=== PATIENT | male | born 1945 | race Caucasian/White ===

== ENCOUNTER 2016-10-01 10:11 | Outpatient (CLI) | payer MEDICARE | END 2016-10-01 10:12 | disposition home or self-care (01) | DX: E78.5 Hyperlipidemia, unspecified (principal); Z79.01 Long term (current) use of anticoagulants; I25.10 Atherosclerotic heart disease of native coronary artery without angina pectoris; I10 Essential (primary) hypertension ==

== ENCOUNTER 2017-06-10 08:52 | Day surgery (SDC) | payer MEDICARE ==
[2017-06-10] MEDS ORDERED: LACTATED RINGERS 1,000 ML IV ONE (09:30)
[2017-06-10] MEDS ORDERED: MORPHINE 10 MG/ML VIAL IVP ONE (10:22)
[2017-06-10] MEDS ORDERED: fentaNYL 100 MCG/2 ML VIAL IVP ONE (10:22)
[2017-06-10 11:29] VITALS: BP 104/60
== END 2017-06-10 08:53 | disposition home or self-care (01) ==
LOC: SDS 08:52
PROVIDERS: ATTEND Surgery
PROC: 0DBP8ZX Excision of Rectum, Via Natural or Artificial Opening Endoscopic, Diagnostic (ICD-10-PCS; principal; 2017-06-10 10:15)
DX: Z12.11 Encounter for screening for malignant neoplasm of colon (principal); K62.1 Rectal polyp; K57.30 Diverticulosis of large intestine without perforation or abscess without bleeding; I10 Essential (primary) hypertension; E78.5 Hyperlipidemia, unspecified; Z79.82 Long term (current) use of aspirin
CPT/HCPCS: 45380; J7120

== ENCOUNTER 2018-02-25 08:00 | Outpatient (CLI) | payer MEDICARE ==
[2018-02-25 19:04] LABS: BASOPHILS # (AUTO) 0.1 10^3/uL (0.0-0.1); BASOPHILS % (AUTO) 0.8 %; EOSINOPHILS # (AUTO) 0.3 10^3/uL (0.0-0.7); EOSINOPHILS % (AUTO) 5.3 %; HGB - HEMOGLOBIN 14.2 g/dL (14.0-18.0); LYMPHOCYTES % (AUTO) 15.4 %; MEAN CORPUSCULAR HEMOGLOBIN 32.3 pg (27.0-31.0); MEAN CORPUSCULAR HGB CONC 33.9 g/dL (32.0-36.0); MEAN CORPUSCULAR VOLUME 95.5 fL (80.0-94.0); MEAN PLATELET VOLUME 8.1 fL (7.4-11.4); MONOCYTES # (AUTO) 0.6 10^3/uL (0.0-1.0); NEUTROPHILS # (AUTO) 4.3 10^3/uL (1.5-6.6); NEUTROPHILS % (AUTO) 68.5 %; PLT - PLATELET COUNT 171 10^3/uL (130-450); RED BLOOD COUNT 4.39 10^6/uL (4.70-6.10); RED CELL DISTRIBUTION WIDTH 13.4 % (12.0-15.0); WHITE BLOOD COUNT 6.2 x10^3/uL (4.8-10.8)
[2018-02-25 19:07] LABS: BILIRUBIN,URINE NEGATIVE (NEGATIVE); GLUCOSE, URINE (UA) NEGATIVE (NEGATIVE); KETONES,URINE (UA) NEGATIVE (NEGATIVE); LEUKOCYTE ESTERASE, URINE NEGATIVE (NEGATIVE); NITRITE,URINE NEGATIVE (NEGATIVE); OCCULT BLOOD,URINE NEGATIVE (NEGATIVE); PH,URINE 6.5 PH (5.0-7.5); PROTEIN,URINE TRACE mg/dL (NEGATIVE); UROBILINOGEN,URINE 0.2 (NORMAL) E.U./dL (NORMAL)
[2018-02-25 19:20] LABS: ALBUMIN/GLOBULIN RATIO 1.3 (1.0-2.2); ALKALINE PHOSPHATASE 45 IU/L (42-121); ALT ALANINE AMINOTRANSFERASE 22 IU/L (10-60); AST ASPARTATE AMINOTRANSFERASE 27 IU/L (10-42); BILIRUBIN,TOTAL 1.1 mg/dL (0.2-1.0); BUN - BLOOD UREA NITROGEN 21 mg/dL (6-20); CALCIUM 9.4 mg/dL (8.5-10.3); CARBON DIOXIDE - CO2 29 mmol/L (21-32); CHLORIDE 101 mmol/L (101-111); CHOL/HDL RATIO 2.6 (<5.0); CHOLESTEROL 134 mg/dL; CREATININE 1.4 mg/dL (0.6-1.2); GFR - MDRD 50 (>89); GLUCOSE 103 mg/dL (70-100); HDL CHOLESTEROL 52 mg/dL; LDL CHOLESTEROL,CALCULATED 67 mg/dL; LDL/HDL RATIO 1.3 (<3.6); SODIUM 137 mmol/L (135-145); TOTAL PROTEIN 7.1 g/dL (6.7-8.2); VLDL CHOLESTEROL 15 mg/dL
[2018-02-25 19:34] LABS: BACTERIA,URINE None Seen /HPF (None Seen); MUCUS,URINE Moderate Strands; RBC,URINE None Seen /HPF (0-5); SQUAMOUS EPITHELIAL CELL,UR RARE Squamous (<= Few)
[2018-02-25 19:44] LABS: CLARITY,URINE CLEAR (CLEAR)
== END 2018-02-25 08:01 | disposition home or self-care (01) ==
LOC: LAB.WCP 08:00
PROVIDERS: ATTEND Family Medicine
DX: Z00.00 Encounter for general adult medical examination without abnormal findings (principal); N18.9 Chronic kidney disease, unspecified; I25.10 Atherosclerotic heart disease of native coronary artery without angina pectoris; I12.9 Hypertensive chronic kidney disease with stage 1 through stage 4 chronic kidney disease, or unspecified chronic kidney disease; E78.5 Hyperlipidemia, unspecified; C61 Malignant neoplasm of prostate
CPT/HCPCS: 36415; 80053; 80061; 81001; 83721; 84153; 85025

== ENCOUNTER 2018-03-13 07:56 | Outpatient (CLI) | payer MEDICARE ==
--- NOTE | 2018-03-13 13:02 | Ultrasound Report ---
Procedure Date: 03/13/2018 Accession Number: [id number] / [id number] Procedure: US - Aorta Screening CPT Code: FULL RESULT: EXAM: AORTIC DOPPLER ULTRASOUND EXAM DATE: 03/13/2018 09:20 AM. CLINICAL HISTORY: Screening. COMPARISON: None. TECHNIQUE: Real-time sonographic imaging of retroperitoneal vascular structures, including color-flow, Doppler flow and spectral analysis was performed by the philosophy specialist. Multiple termite control service representative static images were saved for review. FINDINGS: Examination limited by bowel gas inhibiting sonographic window. Aorta: The abdominal aorta was adequately visualized. No evidence for abdominal aortic aneurysm. Aorta: Proximal: Sagittal AP: 2.5 cm. Distal: Transverse: 1.4 x 1.5 cm. Caliber WNL: Yes. Plaque visualized: Yes. Iliacs: Right Iliac: Transverse: 1.2 x 1.1 cm. Left Iliac: Transverse: 1.1 x 1.2 cm. Iliac Vessels: The visualized proximal common iliac arteries are normal in caliber. Other: None. IMPRESSION: Normal. No abdominal aortic aneurysm. RADIA
== END 2018-03-13 07:57 | disposition home or self-care (01) ==
LOC: DI 07:56
PROVIDERS: ATTEND Family Medicine
DX: Z13.6 Encounter for screening for cardiovascular disorders (principal)
CPT/HCPCS: 76706

== ENCOUNTER 2018-04-14 15:01 | Outpatient (CLI) | payer MEDICARE ==
--- NOTE | 2018-04-15 14:01 | Ultrasound Report ---
Reason: CAROTID BRUIT Procedure Date: 04/14/2018 Accession Number: [id number] / [id number] Procedure: US - Carotid Doppler Complete CPT Code: FULL RESULT: EXAM: BILATERAL CAROTID AND VERTEBRAL ARTERY DUPLEX DOPPLER ULTRASOUND: EXAM DATE: 04/14/2018 04:30 PM CLINICAL HISTORY: Carotid bruit. COMPARISON: None. TECHNIQUE: Grayscale imaging, color Doppler, and duplex spectral Doppler were used to evaluate the carotid and vertebral arteries bilaterally. Static images were obtained. FINDINGS: Subjectively, there is less than 50% echogenic atherosclerotic plaque in the bilateral carotid bulb regions. No hemodynamically significant plaque is identified in the right or left common or internal carotid arteries. Normal antegrade flow is present in bilateral vertebral arteries. VELOCITIES (cm/sec): Right CCA mid: PSV 116 cm/sec CCA dist: PSV 103 cm/sec ICA prox: PSV 77 cm/sec, EDV 27 cm/sec ICA mid: PSV 96 cm/sec, EDV 33 cm/sec ICA dist: PSV 70 cm/sec, EDV 28 cm/sec ECA: PSV 217 cm/sec Vert: PSV 21 cm/sec ICA/CCA: 0.93 Left CCA mid: PSV 78 cm/sec CCA dist: PSV 90 cm/sec ICA prox: PSV 121 cm/sec, EDV 29 cm/sec ICA mid: PSV 97 cm/sec, EDV 28 cm/sec ICA dist: PSV 86 cm/sec, EDV 30 cm/sec ECA: PSV 109 cm/sec Vert: PSV 44 cm/sec ICA/CCA: 1.34 ICA diameter stenosis: Right: <50% by velocity and <70% by NASCET criteria. Left: <50% by velocity and <70% by NASCET criteria. IMPRESSION: 1. No hemodynamically significant bilateral carotid artery plaquing. 2. In the right common and internal carotid artery there are no elevated carotid artery velocities to suggest hemodynamically significant stenosis. 3. In the left common and internal carotid artery there are no elevated carotid artery velocities to suggest hemodynamically significant stenosis. 4. Normal antegrade flow is present in bilateral vertebral arteries. General Recommendations: Stenosis =50% ICA - Follow-up ultrasound 6-12 months Stenosis <50% ICA - High Risk Patient with plaque - Follow-up ultrasound 1-2 years Normal Study but High Risk Patient - Follow-up ultrasound 3-5 years Management recommendations and diagnostic criteria are based on current IAC endorsed standards in Carotid Artery Stenosis: Grayscale and Doppler Ultrasound Diagnosis. Validated velocity measurements with angiographic measurements and velocity criteria are extrapolated from diameter data as defined by the Society of Radiologists in Ultrasound Consensus Conference Radiology 2003; 229;340-346. RADIA
== END 2018-04-14 15:02 | disposition home or self-care (01) ==
LOC: DI 15:01
PROVIDERS: ATTEND Family Medicine
DX: R09.89 Other specified symptoms and signs involving the circulatory and respiratory systems (principal)
CPT/HCPCS: 93880

== ENCOUNTER 2018-10-01 09:20 | Outpatient (CLI) | payer MEDICARE ==
[2018-10-01 13:47] LABS: HGB - HEMOGLOBIN 14.7 g/dL (14.0-18.0); MEAN CORPUSCULAR HEMOGLOBIN 31.5 pg (27.0-31.0); MEAN CORPUSCULAR HGB CONC 34.3 g/dL (32.0-36.0); MEAN CORPUSCULAR VOLUME 91.9 fL (80.0-94.0); MEAN PLATELET VOLUME 7.8 fL (7.4-11.4); RED BLOOD COUNT 4.67 10^6/uL (4.70-6.10); RED CELL DISTRIBUTION WIDTH 13.8 % (12.0-15.0); WHITE BLOOD COUNT 6.4 x10^3/uL (4.8-10.8)
[2018-10-01 13:56] LABS: CALCIUM 9.6 mg/dL (8.5-10.3); CREATININE 1.4 mg/dL (0.6-1.2)
== END 2018-10-01 09:21 | disposition home or self-care (01) ==
LOC: LAB.WCP 09:20
PROVIDERS: ATTEND Family Medicine
DX: N18.9 Chronic kidney disease, unspecified (principal); C61 Malignant neoplasm of prostate
CPT/HCPCS: 36415; 80048; 84153; 85027

== ENCOUNTER 2019-09-06 09:34 | Outpatient (CLI) | payer MEDICARE ==
[2019-09-06 11:59] LABS: BASOPHILS # (AUTO) 0.1 10^3/uL (0.0-0.1); BASOPHILS % (AUTO) 0.9 %; EOSINOPHILS # (AUTO) 0.2 10^3/uL (0.0-0.7); EOSINOPHILS % (AUTO) 3.2 %; HGB - HEMOGLOBIN 13.6 g/dL (14.0-18.0); LYMPHOCYTES % (AUTO) 15.3 %; MEAN CORPUSCULAR HEMOGLOBIN 30.6 pg (27.0-31.0); MEAN CORPUSCULAR HGB CONC 33.3 g/dL (32.0-36.0); MEAN CORPUSCULAR VOLUME 91.9 fL (80.0-94.0); MEAN PLATELET VOLUME 10.7 fL (7.4-11.4); MONOCYTES # (AUTO) 0.6 10^3/uL (0.0-1.0); NEUTROPHILS # (AUTO) 4.6 10^3/uL (1.5-6.6); NEUTROPHILS % (AUTO) 71.3 %; PLT - PLATELET COUNT 181 10^3/uL (130-450); RED BLOOD COUNT 4.44 10^6/uL (4.70-6.10); RED CELL DISTRIBUTION WIDTH 12.7 % (12.0-15.0); WHITE BLOOD COUNT 6.5 x10^3/uL (4.8-10.8)
[2019-09-06 12:15] LABS: ALBUMIN/GLOBULIN RATIO 1.2 (1.0-2.2); BILIRUBIN,TOTAL 0.8 mg/dL (0.2-1.0); CALCIUM 9.6 mg/dL (8.5-10.3); CREATININE 1.4 mg/dL (0.6-1.2); TOTAL PROTEIN 7.3 g/dL (6.7-8.2)
== END 2019-09-06 23:59 | disposition home or self-care (01) ==
LOC: LAB.WCP 09:34
PROVIDERS: ATTEND Family Medicine
DX: K57.92 Diverticulitis of intestine, part unspecified, without perforation or abscess without bleeding (principal)
CPT/HCPCS: 36415; 80053; 85025

== ENCOUNTER 2019-09-16 13:33 | Outpatient (CLI) | payer MEDICARE ==
[2019-09-16] MEDS ORDERED: IOVERSOL 320 100 ML VIAL IVP ONE ×2 (14:07→16:27)
[2019-09-16] MEDS ORDERED: IOVERSOL 320 50 ML VIAL ONE (14:07)
[2019-09-16] MEDS ORDERED: IOVERSOL 320 50 ML VIAL PO ONE (16:27)
--- NOTE | 2019-09-17 08:58 | CT Report ---
Reason: DIVERTICULITIS Procedure Date: 09/16/2019 Accession Number: [id number] / [id number] Procedure: CT - Abdomen/Pelvis W CPT Code: Final Report FULL RESULT: EXAM: CT ABDOMEN AND PELVIS EXAM DATE: 09/16/2019 04:08 PM. CLINICAL HISTORY: Diverticulitis. COMPARISONS: None. TECHNIQUE: Routine helical CT imaging was performed through the abdomen and pelvis. IV contrast: 100 mL Optiray 320. Enteric contrast: Yes. Reconstructions: Coronal and sagittal. In accordance with CT protocol optimization, one or more of the following dose reduction techniques were utilized for this exam: automated exposure control, adjustment of mA and/or KV based on patient size, or use of iterative reconstructive technique. FINDINGS: Lung Bases: Unremarkable. Liver: Normal. No masses. Gallbladder/Bile Ducts: Unremarkable. Spleen: Normal. Pancreas: Normal. Adrenal Glands: Normal. Kidneys: The kidneys enhance symmetrically. No hydronephrosis. 2.5 cm anterior lower pole right renal cyst. Additional subcentimeter cystic foci on the right. Cortical thinning lateral lower pole left kidney. No suspicious masses detected in either kidney. Peritoneal Cavity/Bowel: There are scattered diverticuli throughout the colon to the sigmoid. There is a region of mild pericolonic fat stranding involving the junction of the distal descending colon and sigmoid at approximately the level of the iliac crest, suggestive of mild diverticulitis. No abscess or free air identified. The appendix is well visualized and normal. No bowel obstruction. Pelvic Organs: There is a small diverticulum off the right posterolateral urinary bladder. No visible intraluminal filling defects of the urinary bladder. The prostate is surgically absent. Vasculature: No aneurysms or other significant abnormality. Bones: Single sclerotic focus in the anterior upper outer L4 vertebral body without adjacent cortical change, suggestive of a bone island. Other: None. IMPRESSION: Mild diverticulitis at the junction of the distal descending colon and sigmoid. RADIA
== END 2019-09-16 13:34 | disposition home or self-care (01) ==
LOC: DI 13:33
PROVIDERS: ATTEND Family Medicine
DX: K57.92 Diverticulitis of intestine, part unspecified, without perforation or abscess without bleeding (principal)
CPT/HCPCS: 74177; Q9967

== ENCOUNTER 2020-03-14 08:00 | Outpatient (CLI) | payer MEDICARE ==
[2020-03-14 18:41] LABS: ALBUMIN 4.2 g/dL (3.2-5.5); ALBUMIN/GLOBULIN RATIO 1.4 (1.0-2.2); ALKALINE PHOSPHATASE 55 IU/L (42-121); ALT ALANINE AMINOTRANSFERASE 24 IU/L (10-60); AST ASPARTATE AMINOTRANSFERASE 23 IU/L (10-42); BILIRUBIN,TOTAL 0.8 mg/dL (0.2-1.0); BUN - BLOOD UREA NITROGEN 24 mg/dL (6-20); CALCIUM 9.6 mg/dL (8.5-10.3); CARBON DIOXIDE - CO2 29 mmol/L (21-32); CHLORIDE 101 mmol/L (101-111); CHOL/HDL RATIO 3.9 (<5.0); CHOLESTEROL 164 mg/dL; CREATININE 1.4 mg/dL (0.6-1.2); GLUCOSE 94 mg/dL (70-100); HDL CHOLESTEROL 42 mg/dL; LDL CHOLESTEROL,CALCULATED 91 mg/dL; LDL/HDL RATIO 2.2 (<3.6); SODIUM 139 mmol/L (135-145); TOTAL PROTEIN 7.3 g/dL (6.7-8.2); VLDL CHOLESTEROL 31 mg/dL
[2020-03-14 18:50] LABS: BASOPHILS # (AUTO) 0.1 10^3/uL (0.0-0.1); BASOPHILS % (AUTO) 0.9 %; EOSINOPHILS # (AUTO) 0.2 10^3/uL (0.0-0.7); EOSINOPHILS % (AUTO) 3.9 %; HGB - HEMOGLOBIN 13.9 g/dL (14.0-18.0); LYMPHOCYTES # (AUTO) 1.1 10^3/uL (1.5-3.5); LYMPHOCYTES % (AUTO) 18.4 %; MEAN CORPUSCULAR HGB CONC 32.4 g/dL (32.0-36.0); MEAN CORPUSCULAR VOLUME 92.7 fL (80.0-94.0); MEAN PLATELET VOLUME 10.4 fL (7.4-11.4); MONOCYTES # (AUTO) 0.5 10^3/uL (0.0-1.0); MONOCYTES % (AUTO) 8.6 %; NEUTROPHILS % (AUTO) 67.9 %; PLT - PLATELET COUNT 186 10^3/uL (130-450); RED BLOOD COUNT 4.63 10^6/uL (4.70-6.10); RED CELL DISTRIBUTION WIDTH 12.9 % (12.0-15.0); WHITE BLOOD COUNT 5.8 x10^3/uL (4.8-10.8)
[2020-03-14 19:02] LABS: HB2 TOTAL 14.2 g/dL; HEMOGLOBIN A1C 0.55 g/dL; HEMOGLOBIN A1C % 5.7 % (4.6-6.2)
== END 2020-03-14 23:59 | disposition home or self-care (01) ==
LOC: LAB.WCP 08:00
PROVIDERS: ATTEND Family Medicine
DX: I10 Essential (primary) hypertension (principal); E78.5 Hyperlipidemia, unspecified; R73.01 Impaired fasting glucose; C61 Malignant neoplasm of prostate
CPT/HCPCS: 36415; 80053; 80061; 83036; 83721; 84153; 85025

== ENCOUNTER 2020-05-25 07:00 | Outpatient (CLI) | payer MEDICARE | END 2020-05-25 23:59 | disposition home or self-care (01) | LOC: COV 07:00 | PROVIDERS: ATTEND Family Medicine | DX: R05 Cough (principal); Z20.828 Contact with and (suspected) exposure to other viral communicable diseases ==

== ENCOUNTER 2020-06-16 07:52 | Outpatient (CLI) | payer MEDICARE ==
--- NOTE | 2020-06-16 11:24 | XRAY Report ---
PROCEDURE: Chest 2 View X-Ray INDICATIONS: COUGH TECHNIQUE: 2 view(s) of the chest. COMPARISON: None. FINDINGS: Surgical changes and devices: None. Lungs and pleura: No pleural effusions or pneumothorax. Lungs are clear. Elevation of the left hem idiaphragm is seen, unchanged compared to the prior x-ray. Mediastinum: Mediastinal contours are normal. Heart size is normal. Bones and chest wall: No suspicious bony abnormalities. Soft tissues appear unremarkable. IMPRESSION: Stable chest x-ray with elevation of the left hemidiaphragm. Reviewed by: Antelmo Allen on 06/16/2020 11:22 AM [facility] Approved by: Antelmo Allen on 06/16/2020 11:22 AM [facility] Station ID: [id number]
== END 2020-06-16 23:59 | disposition home or self-care (01) ==
LOC: DI.WCP 07:52
PROVIDERS: ATTEND Family Medicine
DX: R05 Cough (principal)

== ENCOUNTER 2021-05-15 08:57 | Outpatient (CLI) | payer MEDICARE ==
[2021-05-15 12:56] LABS: BASOPHILS # (AUTO) 0.1 10^3/uL (0.0-0.1); EOSINOPHILS # (AUTO) 0.3 10^3/uL (0.0-0.7); EOSINOPHILS % (AUTO) 3.8 %; HCT - HEMATOCRIT 43.1 % (42.0-52.0); HGB - HEMOGLOBIN 14.5 g/dL (14.0-18.0); LYMPHOCYTES # (AUTO) 1.2 10^3/uL (1.5-3.5); LYMPHOCYTES % (AUTO) 16.6 %; MEAN CORPUSCULAR HGB CONC 33.6 g/dL (32.0-36.0); MEAN PLATELET VOLUME 10.5 fL (7.4-11.4); MONOCYTES # (AUTO) 0.6 10^3/uL (0.0-1.0); MONOCYTES % (AUTO) 7.7 %; NEUTROPHILS # (AUTO) 5.1 10^3/uL (1.5-6.6); NEUTROPHILS % (AUTO) 70.5 %; PLT - PLATELET COUNT 191 10^3/uL (130-450); RED BLOOD COUNT 4.84 10^6/uL (4.70-6.10); RED CELL DISTRIBUTION WIDTH 12.8 % (12.0-15.0); WHITE BLOOD COUNT 7.3 x10^3/uL (4.8-10.8)
[2021-05-15 14:01] LABS: ESTIMATED AVERAGE GLUCOSE 120 mg/dL (70-100); HEMOGLOBIN A1c% 5.8 % (4.27-6.07)
[2021-05-15 14:04] LABS: ALBUMIN 4.3 g/dL (3.2-5.5); ALBUMIN/GLOBULIN RATIO 1.3 (1.0-2.2); ALKALINE PHOSPHATASE 54 IU/L (42-121); ALT ALANINE AMINOTRANSFERASE 26 IU/L (10-60); AST ASPARTATE AMINOTRANSFERASE 22 IU/L (10-42); BILIRUBIN,TOTAL 0.8 mg/dL (0.2-1.0); BUN - BLOOD UREA NITROGEN 28 mg/dL (6-20); CALCIUM 9.7 mg/dL (8.5-10.3); CARBON DIOXIDE - CO2 28 mmol/L (21-32); CHLORIDE 100 mmol/L (101-111); CHOL/HDL RATIO 3.6 (<5.0); CHOLESTEROL 176 mg/dL; CREATININE 1.5 mg/dL (0.6-1.2); GFR - MDRD 46 (>89); GLUCOSE 105 mg/dL (70-100); HDL CHOLESTEROL 49 mg/dL; LDL CHOLESTEROL,CALCULATED 98 mg/dL; POTASSIUM 3.7 mmol/L (3.5-5.0); SODIUM 138 mmol/L (135-145); TOTAL PROTEIN 7.6 g/dL (6.7-8.2); TRIGLYCERIDES 146 mg/dL; VLDL CHOLESTEROL 29 mg/dL
== END 2021-05-15 23:59 | disposition home or self-care (01) ==
LOC: LAB.WCP 08:57
PROVIDERS: ATTEND Family Medicine
DX: E78.5 Hyperlipidemia, unspecified (principal); R73.01 Impaired fasting glucose; C61 Malignant neoplasm of prostate; I10 Essential (primary) hypertension
CPT/HCPCS: 36415; 80053; 80061; 83036; 83721; 84153; 85025

== ENCOUNTER 2021-05-28 11:54 | Outpatient (CLI) | payer MEDICARE ==
--- NOTE | 2021-05-28 16:32 | CT Report ---
PROCEDURE: CHEST WO INDICATIONS: CHRONIC COUGH TECHNIQUE: Noncontrast 1mm axial images were acquired from the pulmonary apices to the posterior costophrenic an gles. Axial 5 mm soft tissue kernel reconstructions were performed as well as 8 mm axial MIP and cor onal and sagittal 5 mm reformations. For radiation dose reduction, the following was used: automate d exposure control, adjustment of mA and/or kV according to patient size. COMPARISON: None. FINDINGS: Image quality: Excellent. Lungs and pleura: There is elevation of the left hemidiaphragm with associated left basilar atelecta sis. There is mild scarring in the lung bases. No pleural effusions or pneumothorax. No acute consol idation. There is mild atelectasis with a basilar predominance. Mediastinum: Heart size is normal. No pericardial effusion. There is moderate to severe coronary a rterial vascular calcification. No mediastinal adenopathy by size criteria. Thoracic aorta and centr al pulmonary arteries are normal in size. Esophagus is normal in caliber. There is a small hiatal he rnia. Bones and chest wall: No suspicious bony lesions. No vertebral body compression fractures. No axil onel or supraclavicular adenopathy by size criteria. The thyroid demonstrates no discrete nodules. Abdomen: Visualized upper abdomen demonstrates colonic diverticulosis. IMPRESSION: 1. Elevation of the left hemidiaphragm with associated left basilar atelectasis. 2. Mild nonspecific bronchiectasis the lung bases. Reviewed by: Austen Crouch MD on 05/28/2021 4:30 PM PDT Approved by: Austen Crouch MD on 05/28/2021 4:30 PM PDT Station ID: [id number]
== END 2021-05-28 11:55 | disposition home or self-care (01) ==
LOC: DI 11:54
PROVIDERS: ATTEND Family Medicine
DX: R05.9 Cough, unspecified (principal); J47.9 Bronchiectasis, uncomplicated; J98.11 Atelectasis

== ENCOUNTER 2021-07-04 15:13 | Inpatient (IN) | payer MEDICARE ==
[2021-07-04 16:06] LABS: BASOPHILS % (AUTO) 0.2 %; EOSINOPHILS % (AUTO) 0.2 %; HCT - HEMATOCRIT 41.2 % (42.0-52.0); HGB - HEMOGLOBIN 14.2 g/dL (14.0-18.0); LYMPHOCYTES # (AUTO) 0.6 10^3/uL (1.5-3.5); LYMPHOCYTES % (AUTO) 4.4 %; MEAN CORPUSCULAR HEMOGLOBIN 30.2 pg (27.0-31.0); MEAN CORPUSCULAR HGB CONC 34.5 g/dL (32.0-36.0); MEAN CORPUSCULAR VOLUME 87.7 fL (80.0-94.0); MEAN PLATELET VOLUME 9.2 fL (7.4-11.4); MONOCYTES # (AUTO) 1.3 10^3/uL (0.0-1.0); MONOCYTES % (AUTO) 9.8 %; NEUTROPHILS # (AUTO) 11.6 10^3/uL (1.5-6.6); NEUTROPHILS % (AUTO) 85.2 %; PLT - PLATELET COUNT 156 10^3/uL (130-450); RED CELL DISTRIBUTION WIDTH 12.9 % (12.0-15.0); WHITE BLOOD COUNT 13.6 x10^3/uL (4.8-10.8)
[2021-07-04 16:15] LABS: ALBUMIN 4.2 g/dL (3.2-5.5); ALBUMIN/GLOBULIN RATIO 1.3 (1.0-2.2); CALCIUM 9.2 mg/dL (8.5-10.3); CREATININE 1.6 mg/dL (0.6-1.2); POTASSIUM 3.2 mmol/L (3.5-5.0); TOTAL PROTEIN 7.5 g/dL (6.7-8.2)
[2021-07-04 17:41] LABS: BILIRUBIN,URINE NEGATIVE (NEGATIVE); GLUCOSE, URINE (UA) NEGATIVE (NEGATIVE); KETONES,URINE (UA) NEGATIVE (NEGATIVE); LEUKOCYTE ESTERASE, URINE NEGATIVE (NEGATIVE); NITRITE,URINE NEGATIVE (NEGATIVE); OCCULT BLOOD,URINE NEGATIVE (NEGATIVE); PH,URINE 6.5 PH (5.0-7.5); PROTEIN,URINE TRACE mg/dL (NEGATIVE); UROBILINOGEN,URINE 0.2 (NORMAL) E.U./dL (NORMAL)
[2021-07-04 17:42] LABS: CLARITY,URINE CLEAR (CLEAR)
--- NOTE | 2021-07-04 18:09 | ED Physician Documentation ---
History of Present Illness - Stated complaint Stated Complaint: abd px - Chief complaint Chief Complaint: Abd Pain - History obtained from History obtained from: Patient - History of Present Illness Timing: How many weeks ago (1) Pain level max: 5 Pain level now: 5 - Additonal information Additional information: Patient is a 76-year-old male who presents to the emergency department with right upper quadrant abdominal pain. This been intermittent for the past several days. Recently seen at [facility] for same. Ultrasound showed possible gallstones. 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 Patient has developed a fever today, went to see his PCP who sent him here for evaluation. T-max 100.0 at home. Has not had much appetite today. Increasing nausea and increasing pain. Pain is worse with eating, drinking and palpation. Nothing makes it better Review of Systems Ten Systems: 10 systems reviewed and negative Constitutional: reports: Fever Nose: denies: Rhinorrhea / runny nose, Congestion Respiratory: denies: Dyspnea, Cough GI: denies: Nausea, Vomiting, Diarrhea Skin: denies: Rash Musculoskeletal: denies: Neck pain, Back pain Neurologic: denies: Headache PD PAST MEDICAL HISTORY - Past Medical History Cardiovascular: Hypertension Respiratory: None Endocrine/Autoimmune: None GI: GERD : None HEENT: Chronic vision loss Psych: None Musculoskeletal: Osteoarthritis, Chronic back pain Derm: None - Past Surgical History Ortho: Other - Present Medications Home Medications: Ambulatory Orders Medication Instructions Recorded Confirmed Aspirin [Aspirin EC] 1 tab PO DAILY 06/09/17 06/10/17 Atorvastatin Calcium 1 tab PO DAILY 06/09/17 06/10/17 Losartan [Cozaar] 2 tab PO DAILY 06/09/17 06/10/17 Metoprolol Succinate 1 tab PO DAILY 06/09/17 06/10/17 Niacin 1 tab PO BID 06/09/17 06/10/17 Omeprazole [PriLOSEC] 1 tab PO DAILY 06/09/17 06/10/17 hydroCHLOROthiazide 1 tab PO DAILY 06/09/17 06/10/17 [Hydrochlorothiazide] - Allergies Allergies/Adverse Reactions: Allergies Allergy/AdvReac Type Severity Reaction Status Date / Time No Known Drug Allergies Allergy Verified 07/04/21 15:36 PD ED PE NORMAL - Vitals Vital signs reviewed: Yes - General General: Alert and oriented X 3, No acute distress - HEENT HEENT: Moist mucous membranes - Neck Neck: Supple, no meningeal sign - Cardiac Cardiac: RRR, Strong equal pulses - Respiratory Respiratory: No respiratory distress, Clear bilaterally - Abdomen Abdomen: Soft, Non distended, Other (TTP, RUQ, + torres's sign. ) - Back Back: No CVA TTP, No spinal TTP - Derm Derm: Warm and dry - Extremities Extremities: No edema, No calf tenderness / cord - Neuro Neuro: Alert and oriented X 3 - Psych Psych: Normal mood, Normal affect Results - Vitals Vitals: Vital Signs - 24 hr 07/04/21 07/04/21 07/04/21 15:29 17:53 19:00 Temperature 36.5 C Heart Rate 96 93 89 Respiratory 16 16 22 Rate Blood Pressure 153/71 H 145/75 H 140/76 H O2 Saturation 98 97 95 Oxygen O2 Source Room air - Labs Labs: Laboratory Tests 07/04/21 07/04/21 07/04/21 15:59 15:59 17:25 WBC 13.6 H RBC 4.70 Hgb 14.2 Hct 41.2 L MCV 87.7 MCH 30.2 MCHC 34.5 RDW 12.9 Plt Count 156 MPV 9.2 Neut # (Auto) 11.6 H Lymph # (Auto) 0.6 L [place] # (Auto) 1.3 H Eos # (Auto) 0.0 Baso # (Auto) 0.0 Absolute Nucleated RBC 0.00 Nucleated RBC % 0.0 Sodium 132 L Potassium 3.2 L Chloride 90 L Carbon Dioxide 31 Anion Gap 11.0 BUN 24 H Creatinine 1.6 H Estimated GFR (MDRD) 42 L Glucose 129 H Calcium 9.2 Total Bilirubin 1.0 AST 97 H ALT 106 H Alkaline Phosphatase 68 Total Protein 7.5 Albumin 4.2 Globulin 3.3 Albumin/Globulin Ratio 1.3 Lipase 52 H Urine Color DARK YELLOW Urine Clarity CLEAR Urine pH 6.5 Ur Specific [place] 1.020 Urine Protein TRACE Urine Glucose (UA) NEGATIVE Urine Ketones NEGATIVE Urine Occult Blood NEGATIVE Urine Nitrite NEGATIVE Urine Bilirubin NEGATIVE Urine Urobilinogen 0.2 (NORMAL) Ur Leukocyte Esterase NEGATIVE Ur Microscopic Review NOT INDICATED Urine Culture Comments NOT INDICATED - Rads (name of study) RUQ US Radiology: Final report received, EMP read contemporaneously, See rad report (Possible gallstone in the gallbladder neck. Mild gallbladder wall thickening. Limited examination. ) PD MEDICAL DECISION MAKING - ED course Complexity details: reviewed old records, reviewed results, re-evaluated patient, considered differential, d/w patient, d/w real estate listing consultant (Dr. Butcher, general surgery) ED course: 76-year-old male with increasing white blood cell count, positive Torres's sign and increasing gallbladder wall thickening compared to ultrasound 2 days prior. Symptoms appear consistent with cholecystitis. Patient is now having fevers as well. We will start on antibiotic and admit to surgery. Patient is well- appearing, nontoxic. This document was made in part using voice recognition software. While efforts are made to proofread this document, sound alike and grammatical errors may occur. Departure - Departure Disposition: 66 [facility] DC/[facility] Clinical Impression: Acute cholecystitis Condition: Stable Discharge Date/Time: 07/04/21 20:25
[2021-07-04] MEDS ORDERED: PIPERACILLIN/TAZOBACTAM 3.375 GM in SODIUM CHLORIDE 0.9% MINIBAG 100 ML IV STA (18:58)
[2021-07-04] MEDS ORDERED: SODIUM CHLORIDE 0.9% 1,000 ML IV STA (18:59)
[2021-07-04] MEDS ORDERED: SODIUM CHLORIDE FLUSH 0.9% 10 ML SYRINGE IVP PRN (19:02)
[2021-07-04] MEDS ORDERED: PROCHLORPERAZINE 10 MG/2 ML VIAL IVP PRN (19:02)
--- NOTE | 2021-07-04 19:37 | Ultrasound Report ---
PROCEDURE: Abdomen Limited INDICATIONS: RUQ pain TECHNIQUE: Real-time focused scanning was performed of the abdomen, with image documentation. COMPARISON: None FINDINGS: There is gallbladder sludge. Question stone in the gallbladder neck. This is not definite. There is gallbladder wall thickening up to 4.8 mm. No pain on examination noted. The liver has a heterogeneous echo pattern. No focal liver mass. Common bile duct measures 6 mm. Common hepatic duct not identified. No intrahepatic biliary ductal di latation. No right hydronephrosis. IMPRESSION: Possible gallstone in the gallbladder neck. Mild gallbladder wall thickening. Limited examination. Comment: Consider HIDA study if suspect acute cholecystitis. Reviewed by: Richy Tuttle MD on 07/04/2021 7:36 PM PST Approved by: Richy Tuttle MD on 07/04/2021 7:36 PM PST Station ID: [id number]
[2021-07-04] MEDS: HYDROmorphone 1 MG/ML CARPUJECT IVP PRN (20:16)
[2021-07-04] MEDS: ONDANSETRON 4 MG/2 ML VIAL IVP PRN (20:16)
[2021-07-04 20:30] LABS: B. PARAPERTUSSIS- RESP PCR PAN NOT DETECTED; B. PERTUSSIS- RESP PCR PANEL NOT DETECTED; C. PNEUMONIAE- RESP PCR PANEL NOT DETECTED; CORONAVIRUS 229E-RESP PCR NOT DETECTED; CORONAVIRUS HKU1-RESP PCR NOT DETECTED; CORONAVIRUS NL63-RESP PCR NOT DETECTED; CORONAVIRUS OC43-RESP PCR NOT DETECTED; HUMAN METAPNEUMOVIRUS NOT DETECTED; INFLUENZA A- RESP PCR PANEL NOT DETECTED; INFLUENZA B - RESP PCR PANEL NOT DETECTED; PARAINFLUENZA VIRUS 1 NOT DETECTED; PARAINFLUENZA VIRUS 2 NOT DETECTED; PARAINFLUENZA VIRUS 3 NOT DETECTED; PARAINFLUENZA VIRUS 4 NOT DETECTED; RHINOVIRUS/ENTEROVIRUS NOT DETECTED; RSV- RESP PCR PANEL NOT DETECTED; SARS-CoV-2 -RESP PCR PANEL NOT DETECTED
[2021-07-04 20:31] LABS: M. PNEUMONIAE- RESP PCR PANEL NOT DETECTED
[2021-07-04] MEDS: SODIUM CHLORIDE 0.9% 1,000 ML IV SCH (20:54)
[2021-07-04] MEDS: ACETAMINOPHEN 1,000 MG/100 ML 100 ML IV PRN (21:26)
[2021-07-04] MEDS: ATORVASTATIN 10 MG TABLET PO SCH (21:26)
[2021-07-04] MEDS: PIPERACILLIN/TAZOBACTAM 3.375 GM in SODIUM CHLORIDE 0.9% MINIBAG 100 ML IV SCH (22:54)
[2021-07-05] MEDS: SODIUM CHLORIDE FLUSH 0.9% 10 ML SYRINGE IVP SCH ×4 (00:13→23:18)
[2021-07-05 06:13] LABS: BASOPHILS % (AUTO) 0.3 %; EOSINOPHILS # (AUTO) 0.1 10^3/uL (0.0-0.7); EOSINOPHILS % (AUTO) 0.4 %; HCT - HEMATOCRIT 36.8 % (42.0-52.0); HGB - HEMOGLOBIN 12.7 g/dL (14.0-18.0); LYMPHOCYTES # (AUTO) 0.6 10^3/uL (1.5-3.5); MEAN CORPUSCULAR HGB CONC 34.5 g/dL (32.0-36.0); MEAN PLATELET VOLUME 10.2 fL (7.4-11.4); MONOCYTES # (AUTO) 1.1 10^3/uL (0.0-1.0); NEUTROPHILS # (AUTO) 9.5 10^3/uL (1.5-6.6); NEUTROPHILS % (AUTO) 83.9 %; PLT - PLATELET COUNT 150 10^3/uL (130-450); RED BLOOD COUNT 4.23 10^6/uL (4.70-6.10); WHITE BLOOD COUNT 11.4 x10^3/uL (4.8-10.8)
[2021-07-05 06:23] LABS: ALBUMIN 3.2 g/dL (3.2-5.5); ALBUMIN/GLOBULIN RATIO 1.1 (1.0-2.2); BILIRUBIN,TOTAL 1.2 mg/dL (0.2-1.0); CALCIUM 8.6 mg/dL (8.5-10.3); CREATININE 1.6 mg/dL (0.6-1.2); POTASSIUM 3.2 mmol/L (3.5-5.0); TOTAL PROTEIN 6.2 g/dL (6.7-8.2)
[2021-07-05] MEDS: PIPERACILLIN/TAZOBACTAM 3.375 GM in SODIUM CHLORIDE 0.9% MINIBAG 100 ML IV SCH ×3 (06:39→22:07)
[2021-07-05] MEDS: ACETAMINOPHEN 1,000 MG/100 ML 100 ML IV PRN ×3 (06:40→21:46)
[2021-07-05] MEDS: PANTOPRAZOLE 40 MG TABLET PO SCH (06:40)
[2021-07-05] MEDS ORDERED: TRIAMCIN/MOXIFLOX OPHTHALMIC 0.6 ML VIAL IO ONE (07:51)
[2021-07-05] MEDS: LOSARTAN 50 MG TABLET PO SCH (08:11)
[2021-07-05] MEDS: METOPROLOL SUCCINATE 50 MG TABLET PO SCH (08:11)
[2021-07-05] MEDS: hydroCHLOROthiazide 25 MG TABLET PO SCH (08:11)
[2021-07-05] MEDS: SODIUM CHLORIDE 0.9% 1,000 ML IV SCH ×2 (08:18→19:00)
--- NOTE | 2021-07-05 09:32 | HISTORY & PHYSICAL EXAMINATION ---
HPI - Admitted From Admitted from: ED - History Obtained From History obtained from: Patient Exam limitations: No limitations - History of Present Illness Pain/Problem Location Description: Right upper quadrant pain Severity at the worst: reports: Severe Pain Quality: reports: Dull, Throbbing Context-Pain started w/: reports: Exertion, Inspiration, Movement, Palpation, Rest Timing: reports: Gradual onset, Constant Duration: reports: Days: (2 to 3 days) Improved with: reports: Nothing HPI Comment/Other: Tom is a jamal 76-year-old gentleman who is well-known he tells me that he developed severe dull throbbing right-sided abdominal pain about 3 days ago. He was seen at the [facility] emergency room and had an ultrasound and a CT scan. Initially, they thought they saw a mass in the celiac plexus or in the liver or in the gallbladder when they did the ultrasound but a CT scan prove that not present. He was discharged from the hospital and told to follow-up with his primary care doctor. Yesterday morning at home he had a fever and so his called Dr. Page. He was seen by Dr. Page in her office and subsequently referred back to the emergency room. In the emergency room he had an elevated white count but normal liver function studies.He tells me that his pain is a little bit better this morning but he still feels it.He was admitted overnight for hydration and IV antibiotics with a plan to have surgery today and likely stay at least 1 more night due to the severity of the pain and infection. PMH/PSH - Past Medical History Cardiovascular: positive: Hypertension Respiratory: positive: None Neuro: positive: None Endocrine/Autoimmune: positive: None GI: positive: GERD, Diverticulitis : positive: None HEENT: positive: Chronic vision loss Psych: positive: None Musculoskeletal: positive: Osteoarthritis, Chronic back pain Derm: positive: None MRSA Hx?: No - Past Surgical History Ortho: positive: Other Social & Family Hx - Living Situation Living Arrangement: At home Living Situation: With spouse/s.o. - Social History Does the pt smoke?: No Smoking Status: Never smoker Meds/Allgy - Home Medications Home Medications: Ambulatory Orders Medication Instructions Recorded Confirmed Aspirin [Aspirin EC] 1 tab PO DAILY 06/09/17 06/10/17 Atorvastatin Calcium 1 tab PO DAILY 06/09/17 06/10/17 Losartan [Cozaar] 2 tab PO DAILY 06/09/17 06/10/17 Metoprolol Succinate 1 tab PO DAILY 06/09/17 06/10/17 Niacin 1 tab PO BID 06/09/17 06/10/17 Omeprazole [PriLOSEC] 1 tab PO DAILY 06/09/17 06/10/17 hydroCHLOROthiazide 1 tab PO DAILY 06/09/17 06/10/17 [Hydrochlorothiazide] - Allergies Allergies/Adverse Reactions: Allergies Allergy/AdvReac Type Severity Reaction Status Date / Time No Known Drug Allergies Allergy Verified 07/04/21 15:36 Review of Systems - Constitutional Constitutional: reports: Fatigue - Gastrointestinal Gastrointestinal: reports: Abdominal pain, Nausea. denies: Diarrhea, Vomiting - Genitourinary Genitourinary: denies: Dysuria - Musculoskeletal Musculoskeletal: reports: Stiffness. denies: Muscle pain - Integumentary Integumentary: denies: Rash, Pruritis - Neurological Neurological: denies: Focal weakness, Headache - Hematologic/Lymphatic Hematologic/Lymphatic: denies: Anemia, Bruising, Petechiae - All Other Systems All Other Systems: reports: Reviewed and negative Exam - Vital Signs Reviewed Vital Signs: Yes Vital Signs: Vital Signs x48h Temp Pulse Resp BP Pulse Ox 07/05/21 07:20 37.9 C 94 18 94 07/05/21 06:04 37.4 C 90 18 142/63 H 92 - Physical Exam General Appearance: positive: No acute distress, Alert Eyes Bilateral: positive: Normal inspection, PERRL, EOMI ENT: positive: ENT inspection nml, Pharynx nml, No signs of dehydration Neck: positive: Nml inspection, Thyroid nml Respiratory: positive: Chest non-tender, No respiratory distress, Breath sounds nml Cardiovascular: positive: Regular rate & rhythm, No murmur Peripheral Pulses: positive: 0 Abdomen: positive: Tenderness, Guarding, Rebound Back: positive: Nml inspection Skin: positive: Color nml Neurologic/Psychiatric: positive: Oriented x3 Results - Lab Results Lab results reviewed: Yes Fish Bones: 07/05/21 05:22 07/05/21 05:22 Other Lab Results: Lab Results x24hrs 07/05/21 07/05/21 07/04/21 Range/Units 05:22 05:22 19:21 WBC 11.4 H (4.8-10.8) x10^3/uL RBC 4.23 L (4.70-6.10) 10^6/uL Hgb 12.7 L (14.0-18.0) g/dL Hct 36.8 L (42.0-52.0) % MCV 87.0 (80.0-94.0) fL MCH 30.0 (27.0-31.0) pg MCHC 34.5 (32.0-36.0) g/dL RDW 13.0 (12.0-15.0) % Plt Count 150 (130-450) 10^3/uL MPV 10.2 (7.4-11.4) fL Neut # (Auto) 9.5 H (1.5-6.6) 10^3/uL Lymph # (Auto) 0.6 L (1.5-3.5) 10^3/uL [place] # (Auto) 1.1 H (0.0-1.0) 10^3/uL Eos # (Auto) 0.1 (0.0-0.7) 10^3/uL Baso # (Auto) 0.0 (0.0-0.1) 10^3/uL Absolute Nucleated RBC 0.00 x10^3/uL Nucleated RBC % 0.0 /100WBC Sodium 135 (135-145) mmol/L Potassium 3.2 L (3.5-5.0) mmol/L Chloride 94 L (101-111) mmol/L Carbon Dioxide 30 (21-32) mmol/L Anion Gap 11.0 (6-13) BUN 24 H (6-20) mg/dL Creatinine 1.6 H (0.6-1.2) mg/dL Estimated GFR (MDRD) 42 L (>89) Glucose 112 H (70-100) mg/dL Calcium 8.6 (8.5-10.3) mg/dL Total Bilirubin 1.2 H (0.2-1.0) mg/dL AST 49 H (10-42) IU/L ALT 72 H (10-60) IU/L Alkaline Phosphatase 54 (42-121) IU/L Total Protein 6.2 L (6.7-8.2) g/dL Albumin 3.2 (3.2-5.5) g/dL Globulin 3.0 (2.1-4.2) g/dL Albumin/Globulin Ratio 1.1 (1.0-2.2) Lipase (22-51) U/L Urine Color Urine Clarity (CLEAR) Urine pH (5.0-7.5) PH Ur Specific [place] (1.002-1.030) Urine Protein (NEGATIVE) mg/dL Urine Glucose (UA) (NEGATIVE) mg/dL Urine Ketones (NEGATIVE) mg/dL Urine Occult Blood (NEGATIVE) Urine Nitrite (NEGATIVE) Urine Bilirubin (NEGATIVE) Urine Urobilinogen (NORMAL) E.U./dL Ur Leukocyte Esterase (NEGATIVE) Ur Microscopic Review Urine Culture Comments Nasal Adenovirus (PCR) NOT DETECTED Nasal B. parapertussis DNA (PCR) NOT DETECTED Nasal Coronavir 229E PCR NOT DETECTED Nasal Coronavir HKU1 PCR NOT DETECTED Nasal Coronavir NL63 PCR NOT DETECTED Nasal Coronavir OC43 PCR NOT DETECTED Nasal Enterovir/Rhinovir PCR NOT DETECTED Nasal Influenza B PCR NOT DETECTED Nasal Influenza A PCR NOT DETECTED Nasal Parainfluen 1 PCR NOT DETECTED Nasal Parainfluen 2 PCR NOT DETECTED Nasal Parainfluen 3 PCR NOT DETECTED Nasal Parainfluen 4 PCR NOT DETECTED Nasal RSV (PCR) NOT DETECTED Nasal B.pertussis DNA PCR NOT DETECTED Nasal C.pneumoniae (PCR) NOT DETECTED Ot[place]iel Human Metapneumo PCR NOT DETECTED Nasal M.pneumoniae (PCR) NOT DETECTED Nasal SARS-CoV-2 (PCR) NOT DETECTED 07/04/21 07/04/21 07/04/21 Range/Units 17:25 15:59 15:59 WBC 13.6 H (4.8-10.8) x10^3/uL RBC 4.70 (4.70-6.10) 10^6/uL Hgb 14.2 (14.0-18.0) g/dL Hct 41.2 L (42.0-52.0) % MCV 87.7 (80.0-94.0) fL MCH 30.2 (27.0-31.0) pg MCHC 34.5 (32.0-36.0) g/dL RDW 12.9 (12.0-15.0) % Plt Count 156 (130-450) 10^3/uL MPV 9.2 (7.4-11.4) fL Neut # (Auto) 11.6 H (1.5-6.6) 10^3/uL Lymph # (Auto) 0.6 L (1.5-3.5) 10^3/uL [place] # (Auto) 1.3 H (0.0-1.0) 10^3/uL Eos # (Auto) 0.0 (0.0-0.7) 10^3/uL Baso # (Auto) 0.0 (0.0-0.1) 10^3/uL Absolute Nucleated RBC 0.00 x10^3/uL Nucleated RBC % 0.0 /100WBC Sodium 132 L (135-145) mmol/L Potassium 3.2 L (3.5-5.0) mmol/L Chloride 90 L (101-111) mmol/L Carbon Dioxide 31 (21-32) mmol/L Anion Gap 11.0 (6-13) BUN 24 H (6-20) mg/dL Creatinine 1.6 H (0.6-1.2) mg/dL Estimated GFR (MDRD) 42 L (>89) Glucose 129 H (70-100) mg/dL Calcium 9.2 (8.5-10.3) mg/dL Total Bilirubin 1.0 (0.2-1.0) mg/dL AST 97 H (10-42) IU/L ALT 106 H (10-60) IU/L Alkaline Phosphatase 68 (42-121) IU/L Total Protein 7.5 (6.7-8.2) g/dL Albumin 4.2 (3.2-5.5) g/dL Globulin 3.3 (2.1-4.2) g/dL Albumin/Globulin Ratio 1.3 (1.0-2.2) Lipase 52 H (22-51) U/L Urine Color DARK YELLOW Urine Clarity CLEAR (CLEAR) Urine pH 6.5 (5.0-7.5) PH Ur Specific [place]bert 1.020 (1.002-1.030) Urine Protein TRACE (NEGATIVE) mg/dL Urine Glucose (UA) NEGATIVE (NEGATIVE) mg/dL Urine Ketones NEGATIVE (NEGATIVE) mg/dL Urine Occult Blood NEGATIVE (NEGATIVE) Urine Nitrite NEGATIVE (NEGATIVE) Urine Bilirubin NEGATIVE (NEGATIVE) Urine Urobilinogen 0.2 (NORMAL) (NORMAL) E.U./dL Ur Leukocyte Esterase NEGATIVE (NEGATIVE) Ur Microscopic Review NOT INDICATED Urine Culture Comments NOT INDICATED Nasal Adenovirus (PCR) Nasal B. parapertussis DNA (PCR) Nasal Coronavir 229E PCR Nasal Coronavir HKU1 PCR Nasal Coronavir NL63 PCR Nasal Coronavir OC43 PCR Nasal Enterovir/Rhinovir PCR Nasal Influenza B PCR Nasal Influenza A PCR Nasal Parainfluen 1 PCR Nasal Parainfluen 2 PCR Nasal Parainfluen 3 PCR Nasal Parainfluen 4 PCR Nasal RSV (PCR) Nasal B.pertussis DNA PCR Nasal C.pneumoniae (PCR) Ottoniel Human Metapneumo PCR Nasal M.pneumoniae (PCR) Nasal SARS-CoV-2 (PCR) - Diagnostic Imaging Results Diagnostic Imaging Results: positive: Prelim report reviewed Diagnostic Imaging Results Comments: Sludge and stones in the gallbladder with gallbladder wall thickening. The study was limited. - Other Other Results/Comments: Laboratory Results 07/05/21 05:22: Sodium 135, Potassium 3.2 L, Chloride 94 L, Carbon Dioxide 30, Anion Gap 11.0, BUN 24 H, Creatinine 1.6 H, Estimated GFR (MDRD) 42 L, Glucose 112 H, Calcium 8.6, Total Bilirubin 1.2 H, AST 49 H, ALT 72 H, Alkaline Phosphatase 54, Total Protein 6.2 L, Albumin 3.2, Globulin 3.0, Albumin/Globulin Ratio 1.1 07/05/21 05:22: WBC 11.4 H, RBC 4.23 L, Hgb 12.7 L, Hct 36.8 L, MCV 87.0, MCH 30.0, MCHC 34.5, RDW 13.0, Plt Count 150, MPV 10.2, Neut # (Auto) 9.5 H, Lymph # (Auto) 0.6 L, [place] # (Auto) 1.1 H, Eos # (Auto) 0.1, Baso # (Auto) 0.0, Absolute Nucleated RBC 0.00, Nucleated RBC % 0.0 07/04/21 19:21: Nasal Adenovirus (PCR) NOT DETECTED, Nasal B. parapertussis DNA (PCR) NOT DETECTED, Nasal Coronavir 229E PCR NOT DETECTED, Nasal Coronavir HKU1 PCR NOT DETECTED, Nasal Coronavir NL63 PCR NOT DETECTED, Nasal Coronavir OC43 PCR NOT DETECTED, Nasal Enterovir/Rhinovir PCR NOT DETECTED, Nasal Influenza B PCR NOT DETECTED, Nasal Influenza A PCR NOT DETECTED, Nasal Parainfluen 1 PCR NOT DETECTED, Nasal Parainfluen 2 PCR NOT DETECTED, Nasal Parainfluen 3 PCR NOT DETECTED, Nasal Parainfluen 4 PCR NOT DETECTED, Nasal RSV (PCR) NOT DETECTED, Nasal B.pertussis DNA PCR NOT DETECTED, Nasal C.pneumoniae (PCR) NOT DETECTED, Ottoniel Human Metapneumo PCR NOT DETECTED, Nasal M.pneumoniae (PCR) NOT DETECTED, Nasal SARS-CoV-2 (PCR) NOT DETECTED 07/04/21 17:25: Urine Color DARK YELLOW, Urine Clarity CLEAR, Urine pH 6.5, Ur Specific Colbert 1.020, Urine Protein TRACE, Urine Glucose (UA) NEGATIVE, Urine Ketones NEGATIVE, Urine Occult Blood NEGATIVE, Urine Nitrite NEGATIVE, Urine Bilirubin NEGATIVE, Urine Urobilinogen 0.2 (NORMAL), Ur Leukocyte Esterase NEGATIVE, Ur Microscopic Review NOT INDICATED, Urine Culture Comments NOT INDICATED 07/04/21 15:59: Sodium 132 L, Potassium 3.2 L, Chloride 90 L, Carbon Dioxide 31, Anion Gap 11.0, BUN 24 H, Creatinine 1.6 H, Estimated GFR (MDRD) 42 L, Glucose 129 H, Calcium 9.2, Total Bilirubin 1.0, AST 97 H, ALT 106 H, Alkaline Phosphatase 68, Total Protein 7.5, Albumin 4.2, Globulin 3.3, Albumin/Globulin Ratio 1.3, Lipase 52 H 07/04/21 15:59: WBC 13.6 H, RBC 4.70, Hgb 14.2, Hct 41.2 L, MCV 87.7, MCH 30.2, MCHC 34.5, RDW 12.9, Plt Count 156, MPV 9.2, Neut # (Auto) 11.6 H, Lymph # (Auto) 0.6 L, [place] # (Auto) 1.3 H, Eos # (Auto) 0.0, Baso # (Auto) 0.0, Absolute Nucleated RBC 0.00, Nucleated RBC % 0.0 Impression/Plan - Problem List Problem List: Acute cholecystitis in the setting of a 76-year-old gentleman who is generally healthy. We have discussed the risk benefits and alternatives of cholecystectomy with intraoperative cholangiogram the patient is expressed a desire to have the procedure. I think the cholangiogram is important in this case as there is some question regarding ductal anatomy and the patient understands this.Both verbal and written consent were obtained
--- NOTE | 2021-07-05 09:55 | ANESTHESIA ---
Pre-Anesthesia VS, & Labs - Diagnosis acute cholecystitis - Procedure Lap cholecystectomy with IOC Vital Signs: Temp Pulse Resp BP Pulse Ox 37.9 C 94 18 142/63 H 94 07/05/21 09:43 07/05/21 09:43 07/05/21 09:43 07/05/21 06:04 07/05/21 09:43 Height: 5 ft 7 in Weight (kg): 80.5 kg Body Mass Index: 27.8 BMI Classification: Overweight - NPO >8 hours - Lab Results Current Lab Results: Laboratory Tests 07/05/21 05:22: Sodium 135, Potassium 3.2 L, Chloride 94 L, Carbon Dioxide 30, Anion Gap 11.0, BUN 24 H, Creatinine 1.6 H, Estimated GFR (MDRD) 42 L, Glucose 112 H, Calcium 8.6, Total Bilirubin 1.2 H, AST 49 H, ALT 72 H, Alkaline Phosphatase 54, Total Protein 6.2 L, Albumin 3.2, Globulin 3.0, Albumin/Globulin Ratio 1.1 07/05/21 05:22: WBC 11.4 H, RBC 4.23 L, Hgb 12.7 L, Hct 36.8 L, MCV 87.0, MCH 30.0, MCHC 34.5, RDW 13.0, Plt Count 150, MPV 10.2, Neut # (Auto) 9.5 H, Lymph # (Auto) 0.6 L, [place] # (Auto) 1.1 H, Eos # (Auto) 0.1, Baso # (Auto) 0.0, Absolute Nucleated RBC 0.00, Nucleated RBC % 0.0 07/04/21 15:59: Sodium 132 L, Potassium 3.2 L, Chloride 90 L, Carbon Dioxide 31, Anion Gap 11.0, BUN 24 H, Creatinine 1.6 H, Estimated GFR (MDRD) 42 L, Glucose 129 H, Calcium 9.2, Total Bilirubin 1.0, AST 97 H, ALT 106 H, Alkaline Phosphatase 68, Total Protein 7.5, Albumin 4.2, Globulin 3.3, Albumin/Globulin Ratio 1.3, Lipase 52 H 07/04/21 15:59: WBC 13.6 H, RBC 4.70, Hgb 14.2, Hct 41.2 L, MCV 87.7, MCH 30.2, MCHC 34.5, RDW 12.9, Plt Count 156, MPV 9.2, Neut # (Auto) 11.6 H, Lymph # (Auto) 0.6 L, [place] # (Auto) 1.3 H, Eos # (Auto) 0.0, Baso # (Auto) 0.0, Absolute Nucleated RBC 0.00, Nucleated RBC % 0.0 Lab results reviewed: Yes Fish Bones: 07/05/21 05:22 07/05/21 05:22 Home Medications and Allergies Active Medications Atorvastatin Calcium (Atorvastatin 10 Mg Tablet) 20 mg PO QPM [facility] Last Admin: 07/04/21 21:26 Dose: 20 mg Documented by: Hydrochlorothiazide (Hydrochlorothiazide 25 Mg Tablet) 25 mg PO DAILY [facility] Last Admin: 07/05/21 08:11 Dose: 25 mg Documented by: Hydromorphone HCl (Hydromorphone 1 Mg/Ml Carpuject) 0.5 mg IVP Q2HR PRN PRN Reason: PAIN Last Admin: 07/04/21 20:16 Dose: 0.5 mg Documented by: Sodium Chloride (Normal Saline 0.9%) 1,000 mls @ 100 mls/hr IV .Q10H [facility] Last Admin: 07/05/21 08:18 Dose: 100 mls/hr Documented by: Piperacillin Sod/Tazobactam (Sod 3.375 gm/ Sodium Chloride) 100 mls @ 25 mls/hr IV Q8H [facility] Last Infusion: 07/05/21 06:41 Dose: 0 mls/hr Documented by: Acetaminophen (Ofirmev) 100 mls @ 400 mls/hr IV Q6HR PRN PRN Reason: PAIN Stop: 07/06/21 19:01 Last Infusion: 07/05/21 07:00 Dose: Infused Documented by: Losartan Potassium (Losartan 50 Mg Tablet) 100 mg PO DAILY [facility] Last Admin: 07/05/21 08:11 Dose: 100 mg Documented by: Metoprolol Succinate (Metoprolol Succinate 50 Mg Tablet) 50 mg PO DAILY [facility] Last Admin: 07/05/21 08:11 Dose: 50 mg Documented by: Ondansetron HCl (Ondansetron 4 Mg/2 Ml Vial) 4 mg IVP Q6H PRN PRN Reason: Nausea / Vomiting Last Admin: 07/04/21 20:16 Dose: 4 mg Documented by: Pantoprazole Sodium (Pantoprazole 40 Mg Tablet) 40 mg PO QDAC [facility] Last Admin: 07/05/21 06:40 Dose: 40 mg Documented by: Prochlorperazine Edisylate (Prochlorperazine 10 Mg/2 Ml Vial) 10 mg IVP Q4HR PRN PRN Reason: Nausea / Vomiting Sodium Chloride (Sodium Chloride Flush 0.9% 10 Ml Syringe) 10 ml IVP 0100,0900,1700 [facility] Last Admin: 07/05/21 08:12 Dose: Not Given Documented by: Sodium Chloride (Sodium Chloride Flush 0.9% 10 Ml Syringe) 10 ml IVP PRN PRN PRN Reason: NEEDED PER PROVIDER ORDERS Aspirin [Aspirin EC] 1 tab PO DAILY 06/09/17 Atorvastatin Calcium 1 tab PO DAILY 06/09/17 Losartan [Cozaar] 2 tab PO DAILY 06/09/17 Metoprolol Succinate 1 tab PO DAILY 06/09/17 Niacin 1 tab PO BID 06/09/17 Omeprazole [PriLOSEC] 1 tab PO DAILY 06/09/17 hydroCHLOROthiazide [Hydrochlorothiazide] 1 tab PO DAILY 06/09/17 Allergies/Adverse Reactions: Allergies Allergy/AdvReac Type Severity Reaction Status Date / Time No Known Drug Allergies Allergy Verified 07/04/21 15:36 Anes History & Medical History - Anesthetic History Anesthesia Complications: reports: No previous complications Family history of Anesthesia Complications: Denies Family history of Malignant Hyperthermia: Denies - Medical History Cardiovascular: reports: None Pulmonary: reports: None Gastrointestinal: reports: GERD, Diverticulitis Urinary: reports: None Neuro: reports: None Musculoskeletal: reports: Osteoarthritis, Chronic back pain Endocrine/Autoimmune: reports: None Skin: reports: None Smoking Status: Never smoker - Surgical History Urologic: reports: Prostatic surgery Orthopedic: reports: Other Exam General: Alert, Oriented x3, Cooperative, No acute distress Dental: WNL Mouth Openin Fingerbreadth Neck Mobility: Reduced Mallampati classification: II Respiratory: Lungs clear, Normal breath sounds, No respiratory distress, No accessory muscle use Cardiovascular: Regular rate, Normal S1, Normal S2, No murmurs Plan Anesthesia Type: General Consent for Procedure(s) Verified and Reviewed: Yes Code Status: Attempt Resuscitation ASA classification: 2-Mild systemic disease Is this case an emergency?: No
[2021-07-05] MEDS ORDERED: fentaNYL 100 MCG/2 ML VIAL ONE (11:18)
[2021-07-05] MEDS ORDERED: DEXAMETHASONE 4 MG/ML VIAL ONE (11:19)
[2021-07-05] MEDS ORDERED: ROCURONIUM 50 MG/5 ML VIAL ONE (11:19)
[2021-07-05] MEDS ORDERED: KETOROLAC 30 MG/ML VIAL ONE (11:19)
[2021-07-05] MEDS ORDERED: ONDANSETRON 4 MG/2 ML VIAL ONE (11:19)
[2021-07-05] MEDS ORDERED: LIDOCAINE-MPF 2% 5 ML VIAL ONE (11:19)
[2021-07-05] MEDS ORDERED: PROPOFOL 200 MG/20 ML VIAL IVP ONE (11:19)
[2021-07-05] MEDS ORDERED: ePHEDrine 50 MG/ML VIAL IVP ONE (12:39)
[2021-07-05] MEDS ORDERED: LIDOCAINE MPF 2%-EPI 1:200000 20 ML VIAL SUBQ ONE (13:21)
[2021-07-05] MEDS ORDERED: BUPIVACAINE 0.5% PF 10 ML VIAL SUBQ ONE (13:22)
[2021-07-05] MEDS ORDERED: IOTHALAMATE MEGLUMINE 50 ML VIAL IVP ONE (13:24)
--- NOTE | 2021-07-05 13:25 | PHARMACY PROGRESS NOTE ---
- Best Possible Medication History Admit Date and Time: 07/04/211901 Processed by: Pharmacy Medication History completed: Yes Secondary Source(s): Physician records, Pharmacy records, Insurance records As the person ultimately responsible for medication therapy, providers are able to order a medication from an existing home medication list in [facility] via the "Reconcile Routine" prior to Confirmation of that medication by it application support analyst. Such practice is discouraged except when the physician, in their clinical judgment, deems that a medical need exists for a medication without regard to previous use.
[2021-07-05] MEDS ORDERED: SUGAMMADEX 200 MG/2 ML VIAL IVP ONE (13:41)
[2021-07-05] MEDS ORDERED: LACTATED RINGERS 1,000 ML IV ONE ×2 (13:56→14:37)
--- NOTE | 2021-07-05 14:04 | OPERATIVE REPORT ---
Operative Report - General Admit Date: 07/04/21 Procedure Date: 07/05/21 Planned Procedure: Laparoscopic cholecystectomy with intraoperative cholangiogram Pre-Op Diagnosis: Acute cholecystitis Procedure Performed: Laparoscopic cholecystectomy with drain placement Post Op Diagnosis: Acute cholecystitis with hydrops of the gallbladder - Procedure Note Primary Surgeon: Guadalupe Anesthesia Provider: LYUBOV Mccain Anesthesia Technique: General ET tube Pathology: Gall bladder to pathology in formalin IV Fluids (mL): 2,100 Estimated Blood Loss (mL): 200 Drain/Tube Type: Sergio drain Findings: Acute cholecystitis Complications: Unable to complete the cholangiogram - Other Other Information/Narrative: After obtaining informed consent the patient is brought to the operating room and placed in the supine position on the operating table. Following successful induction of general endotracheal anesthesia, appropriate padding of all bony prominences, and placement of appropriate monitors, the abdomen was prepped and draped in the standard surgical fashion. A timeout was held per scope protocol. All elements of the surgical safety checklist were followed before, during, and after the procedure. Following infiltration with local anesthetic to create a field block, an incision was created inferior to the umbilicus and carried down through the skin and subcutaneous tissue to reveal the fascia below. 2-0 Vicryl retention sutures were placed on either side of the midline and the abdomen was entered under direct vision using a 15 blade scalpel. A 10 mm blunt Watson balloon trocar was placed in the abdominal cavity and it was insufflated to 15 mmHg pressure. The patient was placed in reverse Trendelenburg position with the left side rotated toward the floor. A second trocar, 5 mm, was placed in the midepigastrium under direct vision and after anesthetization of the surrounding skin.A third trocar, also 5 mm was placed in the right upper quadrant for retraction of the gallbladder and a fourth 1 just medial to that as a working port as well. We immediately noted a phlegmon in the right upper quadrant. The omentum was gently retracted into the pelvis revealing an acutely inflamed and necrotic appearing gallbladder with that was very distended.The gallbladder was aspirated so that it could be grasped. The aspirate was clear and consistent with hydrops of the gallbladder. The gallbladder was notably distended even after aspiration.The wall of the gallbladder was thick and friable. The fundus of the gallbladder was then grasped and elevated up over the liver revealing the cholecysto hepatoduodenal ligament. The neck of the gallbladder was retracted laterally and the cystic duct and artery were carefully identified. The mesentery was notably foreshortened.A window was created around the cystic duct for placement of clips. The first clip was fired distally on the cystic duct so that we might complete the cholangiogram.The clip went all the way through the duct and the duct retracted into the cholecysto hepatoduodenal ligament.The stump of the duct attached to the neck of the gallbladder was examined and full of sludge.The retracted proximal cystic duct was identified. At this point the tissues were so tight and it was quite difficult to hold onto the duct. I felt it not safe to try to perform a cholangiogram.Gently holding the cut end of the proximal duct, I placed another clip across the duct and this too went completely across the cystic duct and the duct was again divided.I was finally able to get 1 good clip across the most proximal section of the cystic duct.I was able to see completely around the duct but could not see more proximally into the shortened mesentery. The artery was clipped twice proximally, once distally, and divided. The gallbladder was then liberated from its bed in the liver. Retracting the Neck of the gallbladder superiorly, the entire gallbladder fell out of the hepatic fossa.No cautery was used as it simply came apart.The wound was then checked for hemostasis. Cautery was used to create hemostasis in the gallbladder fossa and then the entire gallbladder fossa was packed with 2 large pieces of Surgicel.Significant oozing had been seen from the fossa so light pressure was held on the Surgicel for 5 minutes. During this time. The abdomen was irrigated with saline solution and aspirated free of all fluid and particulate matter.Upon second look, no additional bleeding was appreciated.A 19 [place] Sergio drain was placed in the gallbladder fossa and brought out in the right upper quadrant. It was sewn into place with a 3-0 nylon suture. Additional irrigation and surveillance did not reveal any continued bleeding. T he trochars were then removed under direct vision and the abdomen desufflated. The gallbladder was removed from the umbilical incision and passed from the table as a specimen. I did not palpate additional stones.The umbilical incision was closed with interrupted Vicryl suture and Monocryl was placed in all of the skin incisions. All sponge, needle, and instrument counts were correct at the conclusion of the case. The patient was allowed awaken from anesthesia without difficulty and taken to the postanesthesia care unit in good condition.
[2021-07-05] MEDS ORDERED: fentaNYL 100 MCG/2 ML VIAL IVP PRN (14:07)
[2021-07-05] MEDS ORDERED: METOCLOPRAMIDE 10 MG/2 ML VIAL IVP PRN (14:07)
[2021-07-05] MEDS ORDERED: ATROPINE ABBOJECT 1 MG/10 ML SYRINGE IVP PRN (14:07)
[2021-07-05] MEDS ORDERED: NALOXONE 0.4 MG/ML VIAL IVP PRN (14:07)
[2021-07-05] MEDS ORDERED: MORPHINE 2 MG/ML CARPUJECT IVP PRN (14:07)
[2021-07-05] MEDS ORDERED: ePHEDrine 50 MG/ML VIAL IVP PRN (14:07)
[2021-07-05] MEDS ORDERED: ONDANSETRON 4 MG/2 ML VIAL IVP PRN (14:07)
[2021-07-05] MEDS: HYDROmorphone 0.5 MG/0.5 ML SYRINGE IVP PRN ×2 (14:14→14:31)
[2021-07-05] MEDS ORDERED: HYDROmorphone 0.5 MG/0.5 ML SYRINGE ONE ×2 (14:19→14:37)
--- NOTE | 2021-07-05 14:34 | ANESTHESIA POST OP EVALUATION ---
Anesthesia Post Eval - Post Anesthesia Eval Vitals: Last Vital Signs Temp 37.3 C 07/05/21 14:26 Pulse 86 07/05/21 14:30 Resp 21 07/05/21 14:30 BP 110/52 L 07/05/21 14:30 Pulse Ox 98 07/05/21 14:30 CV Function Including HR & BP: Stable Pain Control: Satisfactory Nausea & Vomiting: Negative Mental Status: Baseline Respiratory Status: Airway Patent Hydration Status: Satisfactory Anesthesia Complications: None
[2021-07-05] MEDS ORDERED: ACETAMINOPHEN 1,000 MG/100 ML 100 ML IV ONE (14:47)
[2021-07-05] MEDS ORDERED: LACTATED RINGERS 1,000 ML IV SCH (15:00)
[2021-07-05] MEDS ORDERED: GADOBUTROL 10 MMOL/10 ML VIAL ONE (16:44)
[2021-07-05] MEDS ORDERED: GADOBUTROL 10 MMOL/10 ML VIAL IVP ONE (17:55)
[2021-07-05] MEDS: HYDROmorphone 1 MG/ML CARPUJECT IVP PRN (17:57)
[2021-07-05] MEDS: ONDANSETRON 4 MG/2 ML VIAL IVP PRN (18:23)
--- NOTE | 2021-07-05 21:38 | MRI Report ---
PROCEDURE: MRCP W/WO INDICATIONS: Questionable mass on CT CONTRAST: IV CONTRAST: Gadavist ml: 8 TECHNIQUE: Coronal HASTE, axial 2D FLASH in- and [id number]; axial breath-hold T2 FSE. Oblique coronal and ax ial thin-slice HASTE, radial thick-slab HASTE centered on the extrahepatic bile ducts. Dynamic axial VIBE during the administration of contrast; post-contrast coronal VIBE or 2D FLASH with fat saturati on from the hepatic dome to the iliac crests. Diffusion weighted imaging and ADC also performed. COMPARISON: Ultrasound abdomen 07/04/2021, CT chest 05/28/2021, CT abdomen 09/16/2019. FINDINGS: Image quality: There is motion and ghosting artifact limiting evaluation. Lung bases: There are small bilateral pleural effusions with associated compressive atelectasis. Hear t size is normal. There is a small to moderate size hiatal hernia. Biliary ducts and pancreas: The gallbladder is surgically absent. There is a small amount of fluid in the gallbladder fossa and small amount of perihepatic fluid consistent sequelae of recent surgery. M ild peripancreatic fluid along the pancreatic head and uncinate process may reflect sequelae of recen t surgery or pancreatitis. There is a loculated thin-walled peripancreatic collection adjacent to the pancreatic head posterior to the descending duodenum measuring 2.9 x 2.1 x 2.6 cm. This demonstrates no associated internal enhancement following contrast administration. Findings likely represent flui d opacification of a duodenal diverticulum seen on the prior abdominal CT. No discrete solid pancreat ic mass identified. No pancreatic duct dilatation. There is no intra or extra hepatic biliary ductal dilatation. No definite filling defects within the common bile duct to suggest choledocholithiasis, w ith the vaginal limited by motion artifact. Solid organs: The liver demonstrates no discrete mass. The spleen is normal in size. No adrenal nodul es. Kidneys demonstrate no hydronephrosis. Nodes and vessels: No retroperitoneal or mesenteric adenopathy by size criteria. Aorta and inferior vena cava are normal in size. Bowel and peritoneum: Visualized bowel loops are normal in caliber. As noted above, there is a small amount of perihepatic free fluid likely related to recent cholecystectomy. Bones and soft tissues: No ventral hernias. Bone marrow is normal in overall signal. IMPRESSION: 1. Surgical absence of the gallbladder with a small amount of perihepatic free fluid and fluid in the gallbladder fossa consistent with sequelae of recent cystectomy. 2. Small amount of fluid adjacent to the pancreatic head and uncinate process may also reflect sequel ae of recent cholecystectomy. The findings may also reflect pancreatitis. Recommend correlation with laboratory values. 3. Small loculated thin-walled fluid collection adjacent to the pancreatic head and posterior to the duodenum. 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 No associate d wall thickening. 4. No biliary ductal dilatation or definite filling defects to suggest choledocholithiasis. Reviewed by: Austen Crouch MD on 07/05/2021 8:37 PM [place] Approved by: Austen Crouch MD on 07/05/2021 8:[address] [facility] Station ID: [id number]
[2021-07-05] MEDS: ATORVASTATIN 10 MG TABLET PO SCH (21:46)
[2021-07-05] MEDS: METOPROLOL TARTRATE 50 MG TABLET PO SCH (21:46)
[2021-07-06] MEDS: HYDROmorphone 1 MG/ML CARPUJECT IVP PRN (00:46)
[2021-07-06] MEDS: ACETAMINOPHEN 1,000 MG/100 ML 100 ML IV PRN (04:52)
[2021-07-06] MEDS: SODIUM CHLORIDE 0.9% 1,000 ML IV SCH ×3 (04:57→21:52)
[2021-07-06 06:13] LABS: BASOPHILS % (AUTO) 0.2 %; EOSINOPHILS # (AUTO) 0.2 10^3/uL (0.0-0.7); EOSINOPHILS % (AUTO) 2.2 %; HCT - HEMATOCRIT 30.6 % (42.0-52.0); HGB - HEMOGLOBIN 10.2 g/dL (14.0-18.0); LYMPHOCYTES # (AUTO) 0.5 10^3/uL (1.5-3.5); LYMPHOCYTES % (AUTO) 4.2 %; MEAN CORPUSCULAR HEMOGLOBIN 29.8 pg (27.0-31.0); MEAN CORPUSCULAR HGB CONC 33.3 g/dL (32.0-36.0); MEAN CORPUSCULAR VOLUME 89.5 fL (80.0-94.0); MEAN PLATELET VOLUME 10.2 fL (7.4-11.4); MONOCYTES # (AUTO) 0.8 10^3/uL (0.0-1.0); MONOCYTES % (AUTO) 7.3 %; NEUTROPHILS # (AUTO) 9.5 10^3/uL (1.5-6.6); NEUTROPHILS % (AUTO) 85.7 %; PLT - PLATELET COUNT 121 10^3/uL (130-450); RED BLOOD COUNT 3.42 10^6/uL (4.70-6.10); RED CELL DISTRIBUTION WIDTH 13.2 % (12.0-15.0)
[2021-07-06] MEDS: PANTOPRAZOLE 40 MG TABLET PO SCH (06:28)
[2021-07-06] MEDS: PIPERACILLIN/TAZOBACTAM 3.375 GM in SODIUM CHLORIDE 0.9% MINIBAG 100 ML IV SCH ×3 (06:28→22:03)
[2021-07-06 06:29] LABS: ALBUMIN 2.6 g/dL (3.2-5.5); ALBUMIN/GLOBULIN RATIO 0.9 (1.0-2.2); BILIRUBIN,TOTAL 0.6 mg/dL (0.2-1.0); POTASSIUM 3.5 mmol/L (3.5-5.0); TOTAL PROTEIN 5.5 g/dL (6.7-8.2)
[2021-07-06] MEDS ORDERED: SODIUM CHLORIDE 0.9% 500 ML IV ONE (08:49)
[2021-07-06] MEDS ORDERED: LOSARTAN 50 MG TABLET PO SCH (09:00)
[2021-07-06] MEDS: hydroCHLOROthiazide 25 MG TABLET PO SCH (09:17)
[2021-07-06] MEDS: LOSARTAN 50 MG TABLET PO SCH (09:17)
[2021-07-06] MEDS: METOPROLOL SUCCINATE 50 MG TABLET PO SCH (09:18)
[2021-07-06] MEDS: SERTRALINE 25 MG TABLET PO SCH (09:18)
[2021-07-06] MEDS: SODIUM CHLORIDE FLUSH 0.9% 10 ML SYRINGE IVP SCH ×2 (09:19→16:06)
[2021-07-06] MEDS: METOPROLOL TARTRATE 50 MG TABLET PO SCH ×2 (09:19→21:54)
[2021-07-06] MEDS ORDERED: HYDROmorphone 0.5 MG/0.5 ML SYRINGE IVP PRN (09:29)
--- NOTE | 2021-07-06 16:54 | PROVIDER PROGRESS NOTE ---
Subjective - General Admit Date: 07/04/21 Procedure Date: 07/05/21 Post Op Days: 1 - Review of Systems Wound/Incisions: positive: Healing well Drain Type: Sergio Drain Output Description: sanguinous but thin General: positive: No symptoms HEENT: positive: No symptoms Pulmonary: positive: No symptoms Cardiovascular: positive: No symptoms Gastrointestinal: negative: Nausea, Vomiting Genitourinary: positive: No symptoms All Other Systems: positive: Reviewed and negative - Other Other Information/Narrative: Happy and feeling much better this AM. Reviewed results of the MRCP. Duodenal diverticulum but nothing more. The remainder of the study is essentially normal. Hungry. Pain is well controlled. Objective - Patient Data Vital Signs: Vital Signs x48h Temp Pulse Resp BP Pulse Ox 07/06/21 16:22 36.8 C 84 18 137/65 H 95 07/06/21 11:15 36.5 C 88 18 139/61 H 95 Weight: Weight 07/04/21 07/05/21 07/06/21 23:59 23:59 23:59 Weight (kg) 80.5 kg 80.5 kg Intake & Output: Intake and Output Totals x24h 07/04/21 07/05/21 07/06/21 23:59 23:59 23:59 Intake Total 670 2820.833 3045 Output Total 0 40 490 Balance 670 2780.833 2555 - Lab Results Lab Results: 07/06/21 05:27 07/06/21 05:27 Other Lab Results: Lab Results x24hrs 07/06/21 07/06/21 Range/Units 05:27 05:27 WBC 11.0 H (4.8-10.8) x10^3/uL RBC 3.42 L (4.70-6.10) 10^6/uL Hgb 10.2 L (14.0-18.0) g/dL Hct 30.6 L (42.0-52.0) % MCV 89.5 (80.0-94.0) fL MCH 29.8 (27.0-31.0) pg MCHC 33.3 (32.0-36.0) g/dL RDW 13.2 (12.0-15.0) % Plt Count 121 L (130-450) 10^3/uL MPV 10.2 (7.4-11.4) fL Neut # (Auto) 9.5 H (1.5-6.6) 10^3/uL Lymph # (Auto) 0.5 L (1.5-3.5) 10^3/uL Haakon # (Auto) 0.8 (0.0-1.0) 10^3/uL Eos # (Auto) 0.2 (0.0-0.7) 10^3/uL Baso # (Auto) 0.0 (0.0-0.1) 10^3/uL Absolute Nucleated RBC 0.00 x10^3/uL Nucleated RBC % 0.0 /100WBC Sodium 134 L (135-145) mmol/L Potassium 3.5 (3.5-5.0) mmol/L Chloride 98 L (101-111) mmol/L Carbon Dioxide 26 (21-32) mmol/L Anion Gap 10.0 (6-13) BUN 31 H (6-20) mg/dL Creatinine 2.0 H (0.6-1.2) mg/dL Estimated GFR (MDRD) 33 L (>89) Glucose 127 H (70-100) mg/dL Calcium 8.0 L (8.5-10.3) mg/dL Total Bilirubin 0.6 (0.2-1.0) mg/dL AST 63 H (10-42) IU/L ALT 85 H (10-60) IU/L Alkaline Phosphatase 42 (42-121) IU/L Total Protein 5.5 L (6.7-8.2) g/dL Albumin 2.6 L (3.2-5.5) g/dL Globulin 2.9 (2.1-4.2) g/dL Albumin/Globulin Ratio 0.9 L (1.0-2.2) - Current Medications Current Medications: Current Medications Generic Name Dose Route Start Last Admin Trade Name Freq PRN Reason Stop Dose Admin Atorvastatin Calcium 20 mg 07/04/21 21:00 07/05/21 21:46 Atorvastatin 10 Mg Tablet PO 20 mg QPM BRIEN Administration Hydrochlorothiazide 25 mg 07/05/21 09:00 07/06/21 09:17 Hydrochlorothiazide 25 Mg Tablet PO 25 mg DAILY BRIEN Administration Sodium Chloride 1,000 mls @ 100 mls/hr 07/04/21 20:00 07/06/21 04:57 Normal Saline 0.9% IV 100 mls/hr .Q10H BRIEN Administration Piperacillin Sod/Tazobactam 100 mls @ 25 mls/hr 07/04/21 23:00 07/06/21 14:58 Sod 3.375 gm/ Sodium Chloride IV 25 mls/hr Q8H BRIEN Administration Acetaminophen 100 mls @ 400 mls/hr 07/04/21 19:02 07/06/21 05:10 Ofirmev IV 07/06/21 19:01 Infused Q6HR PRN Infusion PAIN Losartan Potassium 100 mg 07/05/21 09:00 07/06/21 09:17 Losartan 50 Mg Tablet PO 100 mg DAILY BRIEN Administration Metoprolol Tartrate 25 mg 07/05/21 21:00 07/05/21 21:46 Metoprolol Tartrate 50 Mg Tablet PO 25 mg QPM BRIEN Administration Metoprolol Tartrate 50 mg 07/06/21 09:00 07/06/21 09:19 Metoprolol Tartrate 50 Mg Tablet PO Not Given DAILY [facility] Ondansetron HCl 4 mg 07/04/21 19:02 07/05/21 18:23 Ondansetron 4 Mg/2 Ml Vial IVP 4 mg Q6H PRN Administration Nausea / Vomiting Pantoprazole Sodium 40 mg 07/05/21 07:00 07/06/21 06:28 Pantoprazole 40 Mg Tablet PO 40 mg QDAC BRIEN Administration Prochlorperazine Edisylate 10 mg 07/04/21 19:02 07/05/21 21:49 Prochlorperazine 10 Mg/2 Ml Vial IVP 10 mg Q4HR PRN Administration Nausea / Vomiting Sertraline HCl 25 mg 07/06/21 09:00 07/06/21 09:18 Sertraline 25 Mg Tablet PO 25 mg DAILY BRIEN Administration Sodium Chloride 10 ml 07/05/21 01:00 07/06/21 16:06 Sodium Chloride Flush 0.9% 10 Ml Syringe IVP Not Given 0100,0900,1700 [facility] - Physical Exam Wound/Incisions: positive: Healing well General Appearance: positive: No acute distress Eyes Bilateral: positive: Normal inspection ENT: positive: ENT inspection nml Neck: positive: Nml inspection Respiratory: positive: Chest non-tender, No respiratory distress Cardiovascular: positive: Regular rate & rhythm Abdomen: positive: Tenderness (Appropriately tender) Back: positive: Nml inspection Skin: positive: Color nml ABX Reporting Has patient been on IV antibiotics over the past 48 hours?: Yes Impression/Plan - Problem List Problem List: POD #1 after lap allen for gangrenous cholecystitis 1. WBCs improving but still has left shift. - will need at least another 24 hours of IV antibiotic before changing to oral 2. 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 Creatinine up - fluid bolus and general diet. Will recheck labs in the AM 4. Home tomorrow if he continues to do well
[2021-07-06] MEDS: ATORVASTATIN 10 MG TABLET PO SCH (21:53)
[2021-07-07] MEDS: SODIUM CHLORIDE FLUSH 0.9% 10 ML SYRINGE IVP SCH (04:28)
[2021-07-07 06:09] LABS: BASOPHILS % (AUTO) 0.2 %; EOSINOPHILS # (AUTO) 0.4 10^3/uL (0.0-0.7); EOSINOPHILS % (AUTO) 4.2 %; HCT - HEMATOCRIT 31.5 % (42.0-52.0); HGB - HEMOGLOBIN 10.6 g/dL (14.0-18.0); LYMPHOCYTES # (AUTO) 0.8 10^3/uL (1.5-3.5); LYMPHOCYTES % (AUTO) 8.6 %; MEAN CORPUSCULAR HEMOGLOBIN 30.1 pg (27.0-31.0); MEAN CORPUSCULAR HGB CONC 33.7 g/dL (32.0-36.0); MEAN CORPUSCULAR VOLUME 89.5 fL (80.0-94.0); MEAN PLATELET VOLUME 9.7 fL (7.4-11.4); MONOCYTES # (AUTO) 0.7 10^3/uL (0.0-1.0); MONOCYTES % (AUTO) 7.8 %; NEUTROPHILS # (AUTO) 6.9 10^3/uL (1.5-6.6); NEUTROPHILS % (AUTO) 78.6 %; PLT - PLATELET COUNT 155 10^3/uL (130-450); RED BLOOD COUNT 3.52 10^6/uL (4.70-6.10); RED CELL DISTRIBUTION WIDTH 13.4 % (12.0-15.0); WHITE BLOOD COUNT 8.8 x10^3/uL (4.8-10.8)
[2021-07-07 06:21] LABS: ALBUMIN 2.6 g/dL (3.2-5.5); ALBUMIN/GLOBULIN RATIO 0.8 (1.0-2.2); BILIRUBIN,TOTAL 0.6 mg/dL (0.2-1.0); CALCIUM 8.4 mg/dL (8.5-10.3); CREATININE 1.6 mg/dL (0.6-1.2); POTASSIUM 3.4 mmol/L (3.5-5.0); TOTAL PROTEIN 5.7 g/dL (6.7-8.2)
[2021-07-07] MEDS: PIPERACILLIN/TAZOBACTAM 3.375 GM in SODIUM CHLORIDE 0.9% MINIBAG 100 ML IV SCH (07:00)
[2021-07-07] MEDS: PANTOPRAZOLE 40 MG TABLET PO SCH (07:00)
[2021-07-07] MEDS: SERTRALINE 25 MG TABLET PO SCH (08:27)
[2021-07-07] MEDS: METOPROLOL TARTRATE 50 MG TABLET PO SCH (08:27)
[2021-07-07] MEDS: SODIUM CHLORIDE 0.9% 1,000 ML IV SCH (08:28)
[2021-07-07] MEDS: hydroCHLOROthiazide 25 MG TABLET PO SCH (08:28)
[2021-07-07] MEDS: LOSARTAN 50 MG TABLET PO SCH (08:28)
--- NOTE | 2021-07-07 09:51 | PROVIDER PROGRESS NOTE ---
Subjective - General Admit Date: 07/04/21 Procedure Date: 07/05/21 Post Op Days: 2 Procedure Performed: [place] - Review of Systems Wound/Incisions: positive: Healing well Drain Type: Sergio Drain Output Description: sanguinous but thin General: positive: No symptoms HEENT: positive: No symptoms Pulmonary: positive: No symptoms Cardiovascular: positive: No symptoms Gastrointestinal: negative: Nausea, Vomiting Genitourinary: positive: No symptoms All Other Systems: positive: Reviewed and negative - Other Other Information/Narrative: Feeling great, grateful for care he has received from all members of the team. Had large BM this am. Pain controlled. Tolerating diet. He is hoping to d/c to home today. Objective - Patient Data Vital Signs: Vital Signs x48h Temp Pulse Resp BP BP Pulse Ox 07/07/21 08:27 166/84 H 07/07/21 07:32 37.1 C 65 18 166/84 H 95 07/07/21 05:04 37.3 C 83 18 148/73 H 93 Weight: Weight 07/05/21 07/06/21 07/07/21 23:59 23:59 23:59 Weight (kg) 80.5 kg Intake & Output: Intake and Output Totals x24h 07/05/21 07/06/21 07/07/21 23:59 23:59 23:59 Intake Total 2820.833 4645 1500 Output Total 40 490 70 Balance 2780.833 4155 1430 - Lab Results Lab Results: 07/07/21 05:52 07/07/21 05:52 Other Lab Results: Lab Results x24hrs 07/07/21 07/07/21 Range/Units 05:52 05:52 WBC 8.8 (4.8-10.8) x10^3/uL RBC 3.52 L (4.70-6.10) 10^6/uL Hgb 10.6 L (14.0-18.0) g/dL Hct 31.5 L (42.0-52.0) % MCV 89.5 (80.0-94.0) fL MCH 30.1 (27.0-31.0) pg MCHC 33.7 (32.0-36.0) g/dL RDW 13.4 (12.0-15.0) % Plt Count 155 (130-450) 10^3/uL MPV 9.7 (7.4-11.4) fL Neut # (Auto) 6.9 H (1.5-6.6) 10^3/uL Lymph # (Auto) 0.8 L (1.5-3.5) 10^3/uL Denali # (Auto) 0.7 (0.0-1.0) 10^3/uL Eos # (Auto) 0.4 (0.0-0.7) 10^3/uL Baso # (Auto) 0.0 (0.0-0.1) 10^3/uL Absolute Nucleated RBC 0.00 x10^3/uL Nucleated RBC % 0.0 /100WBC Sodium 141 (135-145) mmol/L Potassium 3.4 L (3.5-5.0) mmol/L Chloride 105 (101-111) mmol/L Carbon Dioxide 28 (21-32) mmol/L Anion Gap 8.0 (6-13) BUN 25 H (6-20) mg/dL Creatinine 1.6 H (0.6-1.2) mg/dL Estimated GFR (MDRD) 42 L (>89) Glucose 105 H (70-100) mg/dL Calcium 8.4 L (8.5-10.3) mg/dL Total Bilirubin 0.6 (0.2-1.0) mg/dL AST 41 (10-42) IU/L ALT 68 H (10-60) IU/L Alkaline Phosphatase 51 (42-121) IU/L Total Protein 5.7 L (6.7-8.2) g/dL Albumin 2.6 L (3.2-5.5) g/dL Globulin 3.1 (2.1-4.2) g/dL Albumin/Globulin Ratio 0.8 L (1.0-2.2) - Current Medications Current Medications: Current Medications Generic Name Dose Route Start Last Admin Trade Name Bernyq PRN Reason Stop Dose Admin Atorvastatin Calcium 20 mg 07/04/21 21:00 07/06/21 21:53 Atorvastatin 10 Mg Tablet PO 20 mg QPM BRIEN Administration Hydrochlorothiazide 25 mg 07/05/21 09:00 07/07/21 08:28 Hydrochlorothiazide 25 Mg Tablet PO 25 mg DAILY BRIEN Administration Sodium Chloride 1,000 mls @ 100 mls/hr 07/04/21 20:00 07/07/21 08:28 Normal Saline 0.9% IV 100 mls/hr .Q10H BRIEN Administration Piperacillin Sod/Tazobactam 100 mls @ 25 mls/hr 07/04/21 23:00 07/07/21 07:00 Sod 3.375 gm/ Sodium Chloride IV 25 mls/hr Q8H BRIEN Administration Losartan Potassium 100 mg 07/05/21 09:00 07/07/21 08:28 Losartan 50 Mg Tablet PO 100 mg DAILY BRIEN Administration Metoprolol Tartrate 25 mg 07/05/21 21:00 07/06/21 21:54 Metoprolol Tartrate 50 Mg Tablet PO 25 mg QPM BRIEN Administration Metoprolol Tartrate 50 mg 07/06/21 09:00 07/07/21 08:27 Metoprolol Tartrate 50 Mg Tablet PO 50 mg DAILY BRIEN Administration Ondansetron HCl 4 mg 07/04/21 19:02 07/05/21 18:23 Ondansetron 4 Mg/2 Ml Vial IVP 4 mg Q6H PRN Administration Nausea / Vomiting Pantoprazole Sodium 40 mg 07/05/21 07:00 07/07/21 07:00 Pantoprazole 40 Mg Tablet PO 40 mg QDAC [facility] Administration Prochlorperazine Edisylate 10 mg 07/04/21 19:02 07/05/21 21:49 Prochlorperazine 10 Mg/2 Ml Vial IVP 10 mg Q4HR PRN Administration Nausea / Vomiting Sertraline HCl 25 mg 07/06/21 09:00 07/07/21 08:27 Sertraline 25 Mg Tablet PO 25 mg DAILY [facility] Administration Sodium Chloride 10 ml 07/05/21 01:00 07/07/21 04:28 Sodium Chloride Flush 0.9% 10 Ml Syringe IVP Not Given 0100,0900,1700 [facility] - Physical Exam Wound/Incisions: positive: Healing well, No drainage (Dressing at drain site CDI; drain output serosanguinous, thin) General Appearance: positive: No acute distress Eyes Bilateral: positive: EOMI ENT: positive: Other (atraumatic, normocephalic) Respiratory: positive: No respiratory distress Cardiovascular: positive: Regular rate & rhythm Abdomen: positive: Other (soft, non-distended, appropriately TTP around incisions; drain serosang and thin; all incisions CDI) Skin: positive: Color nml, Warm, Dry Extremities: positive: No pedal edema Neurologic/Psychiatric: positive: Oriented x3 ABX Reporting Has patient been on IV antibiotics over the past 48 hours?: Yes Impression/Plan - Problem List Problem List: Pt is a 76 yo M with hx gangrenous cholecystitis s/p lap allen. Progressing well. Had large BM today, pain controlled, ambulating independently. - leave drain in place, nursing to give pt teaching, will record volumes and character at home - switch to PO abx on discharge - f/u in clinic with Dr. Butcher in 1 week Discussed with primary surgeon Dr. Butcher. Rolan Quintero MD
--- NOTE | 2021-07-07 10:00 | Discharge Plan ---
Discharge Plan Problem Reviewed?: Yes Disposition: Home, Self Care Condition: Stable Prescriptions: Amox/Clav 875/125 [Augmentin 875/125 Tab] 1 tablet PO Q12H 5 Days #10 tablet oxyCODONE [Roxicodone] 5 mg PO Q4-6H PRN #7 tablet PRN Reason: Pain Ondansetron Odt [Zofran Odt] 4 mg TL Q6H PRN #10 tablet PRN Reason: Nausea / Vomiting Diet: Regular Activity Restrictions: Activity as Tolerated Shower Restrictions: No Driving Restrictions: Yes (Not while taking narcotics) Plan of Treatment: Discharge to home with drain. Follow up with me in 1 week for drain removal Assessment: Acute gangrenous cholecystitis - resolved No Smoking: If you smoke, Please STOP! Call for help. Follow-up with: Andrew Page DO [Primary Care Provider] - Breanna Butcher MD [Provider Admit Priv/Credential] -
[2021-07-07 11:37] VITALS: BP 152/81
--- NOTE | 2021-07-18 15:58 | DISCHARGE SUMMARY ---
"Discharge Summary Admit Date: 07/04/21 Discharge Date: 07/07/21 Discharging Provider: Guadalupe Primary Care Provider: Camilo Code Status: Attempt Resuscitation Condition at Discharge: Stable Discharge Disposition: 01 Home, Self Care - DIAGNOSES Admission Diagnoses: Acute cholecystitis and cholelithiasis Discharge Diagnoses with Status of Each Condition: Improved/resolving - HPI History of Present Illness: Tom is a jamal 76-year-old gentleman who is well-known he tells me that he developed severe dull throbbing right-sided abdominal pain about 3 days ago. He was seen at the [facility] emergency room and had an ultrasound and a CT scan. Initially, they thought they saw a mass in the celiac plexus or in the liver or in the gallbladder when they did the ultrasound but a CT scan prove that not present. He was discharged from the hospital and told to follow-up with his primary care doctor. Yesterday morning at home he had a fever and so his called Dr. Page. He was seen by Dr. Page in her office and subsequently referred back to the emergency room. In the emergency room he had an elevated white count but normal liver function studies.He tells me that his pain is a little bit better this morning but he still feels it.He was admitted overnight for hydration and IV antibiotics with a plan to have surgery today and likely stay at least 1 more night due to the severity of the pain and infection. - CONSULTS | PROCEDURES Consultations: None Procedures: Laparoscopic cholecystectomy - HOSPITAL COURSE Hospital Course: The patient was admitted and taken to the operating room for a laparoscopic cholecystectomy. Surgery was uneventful with the exception of attempted cholangiogram could not be completed due to the level of infection and the very short length of the cystic duct. A drain was placed and the patient was returned to the [facility] floor for convalescence. He has done extremely well. Today he is eating a regular diet. Pain is well controlled with oral medications only and his bowels are working. He is walking the halls unassisted. He is discharged to his home in the care of his family. He will follow-up with the surgery clinic in 2 weeks.No significant dietary restrictions but should observe a 10 pound lifting limit for the next 3 months. - ALLERGIES Allergies/Adverse Reactions: Allergies Allergy/AdvReac Type Severity Reaction Status Date / Time No Known Drug Allergies Allergy Verified 07/04/21 15:36 - MEDICATIONS Home Medications: Ambulatory Orders Medication Instructions Recorded Confirmed Atorvastatin Calcium 20 mg PO QPM 06/09/17 07/05/21 hydroCHLOROthiazide 25 mg PO DAILY 06/09/17 07/05/21 [Hydrochlorothiazide] Famotidine 40 mg PO DAILY 07/05/21 07/05/21 Losartan Potassium [Cozaar] 100 mg PO DAILY 07/05/21 07/05/21 Metoprolol Tartrate [Lopressor] 25 mg PO QPM 07/05/21 07/05/21 Metoprolol Tartrate [Lopressor] 50 mg PO DAILY 07/05/21 07/05/21 Sertraline [Zoloft] 25 mg PO DAILY 07/05/21 07/05/21 Amox/Clav 875/125 [Augmentin 1 tablet PO Q12H 5 Days #10 tablet 07/07/21 875/125 Tab] Ondansetron Odt [Zofran Odt] 4 mg TL Q6H PRN #10 tablet 07/07/21 oxyCODONE [Roxicodone] 5 mg PO Q4-6H PRN #7 tablet 07/07/21 - PHYSICAL EXAM AT DISCHARGE General Appearance: positive: No acute distress, Alert Eyes Bilateral: positive: Normal inspection, PERRL, EOMI ENT: positive: ENT inspection nml Neck: positive: Nml inspection Respiratory: positive: No respiratory distress, Breath sounds nml Cardiovascular: positive: Regular rate & rhythm, No murmur Peripheral Pulses: positive: 0 Abdomen: positive: Nml bowel sounds, Tenderness, Other (Drain is in place with serous output) Back: negative: CVA tenderness (R), CVA tenderness (L) Skin: positive: Color nml Neurologic/Psychiatric: positive: Oriented x3 - LABS Result Diagrams: 07/07/21 05:52 07/07/21 05:52 - QUALITY (Female Hip Fx Only) Was patient sent home on osteoporosis medication?: No - FOLLOW UP Follow Up: [facility] in 2 weeks - TIME SPENT Time Spent in Discharge (Minutes): 20"
== END 2021-07-07 11:50 | disposition home or self-care (01) | DRG 418 ==
LOC: ED 15:13 → MS2 19:02
PROVIDERS: ADMIT Surgery; ATTEND Surgery
PROC: 0FT44ZZ Resection of Gallbladder, Percutaneous Endoscopic Approach (ICD-10-PCS; principal; 2021-07-04)
DX: K81.0 Acute cholecystitis (principal); K82.1 Hydrops of gallbladder; Z20.822 Contact with and (suspected) exposure to COVID-19; K82.A1 Gangrene of gallbladder in cholecystitis; I10 Essential (primary) hypertension; K21.9 Gastro-esophageal reflux disease without esophagitis
CPT/HCPCS: 36415; 74183; 76705; 80053; 81003; 83690; 85025; 87631; 99284; 99285; A9270; A9585; C1758; J0131; J1170; J7120; Q9961; 0202U; 81001; 87086

== ENCOUNTER 2022-02-21 10:24 | Outpatient (CLI) | payer MEDICARE ==
[2022-02-21 12:20] LABS: BASOPHILS # (AUTO) 0.1 10^3/uL (0.0-0.1); BASOPHILS % (AUTO) 0.9 %; EOSINOPHILS # (AUTO) 0.3 10^3/uL (0.0-0.7); EOSINOPHILS % (AUTO) 4.8 %; HCT - HEMATOCRIT 41.1 % (42.0-52.0); HGB - HEMOGLOBIN 14.1 g/dL (14.0-18.0); LYMPHOCYTES # (AUTO) 1.1 10^3/uL (1.5-3.5); LYMPHOCYTES % (AUTO) 15.7 %; MEAN CORPUSCULAR HGB CONC 34.3 g/dL (32.0-36.0); MEAN CORPUSCULAR VOLUME 87.4 fL (80.0-94.0); MEAN PLATELET VOLUME 10.4 fL (7.4-11.4); MONOCYTES # (AUTO) 0.6 10^3/uL (0.0-1.0); MONOCYTES % (AUTO) 8.9 %; NEUTROPHILS # (AUTO) 4.8 10^3/uL (1.5-6.6); NEUTROPHILS % (AUTO) 69.4 %; PLT - PLATELET COUNT 175 10^3/uL (130-450); RED CELL DISTRIBUTION WIDTH 13.2 % (12.0-15.0); WHITE BLOOD COUNT 6.9 x10^3/uL (4.8-10.8)
[2022-02-21 12:37] LABS: ALBUMIN 4.2 g/dL (3.2-5.5); ALBUMIN/GLOBULIN RATIO 1.4 (1.0-2.2); ALKALINE PHOSPHATASE 53 IU/L (42-121); ALT ALANINE AMINOTRANSFERASE 21 IU/L (10-60); AST ASPARTATE AMINOTRANSFERASE 21 IU/L (10-42); BILIRUBIN,TOTAL 0.9 mg/dL (0.2-1.0); BUN - BLOOD UREA NITROGEN 23 mg/dL (6-20); CALCIUM 9.8 mg/dL (8.5-10.3); CARBON DIOXIDE - CO2 29 mmol/L (21-32); CHLORIDE 102 mmol/L (101-111); CHOL/HDL RATIO 3.3 (<5.0); CHOLESTEROL 154 mg/dL; CREATININE 1.7 mg/dL (0.6-1.2); GFR - MDRD 39 (>89); GLUCOSE 102 mg/dL (70-100); HDL CHOLESTEROL 47 mg/dL; LDL CHOLESTEROL,CALCULATED 79 mg/dL; LDL/HDL RATIO 1.7 (<3.6); POTASSIUM 3.9 mmol/L (3.5-5.0); SODIUM 140 mmol/L (135-145); TOTAL PROTEIN 7.1 g/dL (6.7-8.2); TRIGLYCERIDES 138 mg/dL; VLDL CHOLESTEROL 28 mg/dL
[2022-02-21 13:31] LABS: ESTIMATED AVERAGE GLUCOSE 120 mg/dL (70-100); HEMOGLOBIN A1c% 5.8 % (4.27-6.07)
== END 2022-02-21 10:25 | disposition home or self-care (01) ==
LOC: LAB.N 10:24
PROVIDERS: ATTEND Physician Assistant
DX: E78.5 Hyperlipidemia, unspecified (principal); R73.01 Impaired fasting glucose; R05.3 Chronic cough
CPT/HCPCS: 36415; 80053; 80061; 83036; 83721; 85025

== ENCOUNTER 2022-06-18 11:05 | Outpatient (CLI) | payer MEDICARE ==
[2022-06-18 18:04] LABS: BILIRUBIN,URINE NEGATIVE (NEGATIVE); GLUCOSE, URINE (UA) NEGATIVE (NEGATIVE); KETONES,URINE (UA) NEGATIVE (NEGATIVE); LEUKOCYTE ESTERASE, URINE NEGATIVE (NEGATIVE); NITRITE,URINE NEGATIVE (NEGATIVE); OCCULT BLOOD,URINE NEGATIVE (NEGATIVE); PH,URINE 7.5 PH (5.0-7.5); PROTEIN,URINE NEGATIVE (NEGATIVE); UROBILINOGEN,URINE 0.2 (NORMAL) E.U./dL (NORMAL)
[2022-06-18 18:05] LABS: CALCIUM 9.5 mg/dL (8.5-10.3); CLARITY,URINE CLEAR (CLEAR); CREATININE 1.7 mg/dL (0.6-1.2); POTASSIUM 3.6 mmol/L (3.5-5.0)
[2022-06-18 18:13] LABS: CREATININE,URINE 155.2 mg/dL
[2022-06-18 18:21] LABS: BACTERIA,URINE Rare /HPF (None Seen); RBC,URINE 0-5 /HPF (0-5); SQUAMOUS EPITHELIAL CELL,UR RARE Squamous (<= Few); WBC,URINE 0-3 /HPF (0-3)
[2022-06-18 21:33] LABS: ESTIMATED AVERAGE GLUCOSE 117 mg/dL (70-100); HEMOGLOBIN A1c% 5.7 % (4.27-6.07)
== END 2022-06-18 11:06 | disposition home or self-care (01) ==
LOC: LAB.N 11:05
PROVIDERS: ATTEND Family Medicine
DX: N18.32 Chronic kidney disease, stage 3b (principal); R73.01 Impaired fasting glucose
CPT/HCPCS: 36415; 80048; 81001; 82570; 83036; 84300

== ENCOUNTER 2022-08-12 17:44 | Emergency (ER) | payer MEDICARE ==
[2022-08-12] MEDS ORDERED: amLODIPine 5 MG TABLET PO STA (18:25)
--- NOTE | 2022-08-12 18:27 | ED Physician Documentation ---
History of Present Illness - Stated complaint Stated Complaint: HIGH BP - Chief complaint Chief Complaint: Cardiac - History obtained from History obtained from: Patient - History of Present Illness Timing: How many weeks ago (several weeks) Pain level max: 0 Pain level now: 0 - Additonal information Additional information: 77-year-old male with chronic hypertension and states that it has been gradually increasing over the past several weeks. No chest pain. No shortness of breath. No vision changes. No numbness, no tingling, no focal neurological deficits. He states he called his doctor's office today and they recommended he come to the emergency department to be "checked out". He does have a history of tinnitus and feels like it is getting louder as well. Review of Systems Constitutional: denies: Fever, Chills Nose: denies: Rhinorrhea / runny nose, Congestion Throat: denies: Sore throat Cardiac: denies: Chest pain / pressure, Palpitations, Calf pain Respiratory: denies: Dyspnea, Cough, Wheezing GI: denies: Abdominal Pain, Nausea, Vomiting, Diarrhea Skin: denies: Rash Musculoskeletal: denies: Neck pain, Back pain Neurologic: denies: Focal weakness, Numbness, Confused, Headache, Head injury PD PAST MEDICAL HISTORY - Past Medical History Past Medical History: Yes Cardiovascular: Hypertension Respiratory: None Neuro: None Endocrine/Autoimmune: None GI: GERD, Diverticulitis : None HEENT: Chronic vision loss Psych: None Musculoskeletal: Osteoarthritis, Chronic back pain Derm: None - Past Surgical History Ortho: Other - Present Medications Home Medications: Ambulatory Orders Medication Instructions Recorded Confirmed Atorvastatin Calcium 20 mg PO QPM 06/09/17 08/12/22 Famotidine 40 mg PO DAILY 07/05/21 08/12/22 Losartan Potassium [Cozaar] 100 mg PO DAILY 07/05/21 08/12/22 Metoprolol Tartrate [Lopressor] 25 mg PO QPM 07/05/21 08/12/22 Metoprolol Tartrate [Lopressor] 50 mg PO DAILY 07/05/21 08/12/22 Sertraline [Zoloft] 25 mg PO DAILY 07/05/21 08/12/22 Amlodipine Besylate [Norvasc] 10 mg PO DAILY #30 tablet 08/12/22 - Allergies Allergies/Adverse Reactions: Allergies Allergy/AdvReac Type Severity Reaction Status Date / Time No Known Drug Allergies Allergy Verified 08/12/22 17:51 - Social History Does the pt smoke?: No Smoking Status: Never smoker PD ED PE NORMAL - Vitals Vital signs reviewed: Yes - General General: Alert and oriented X 3, No acute distress, Well developed/nourished - HEENT HEENT: PERRL, Moist mucous membranes - Neck Neck: Supple, no meningeal sign - Cardiac Cardiac: RRR, Strong equal pulses - Respiratory Respiratory: No respiratory distress, Clear bilaterally - Abdomen Abdomen: Soft, Non tender, Non distended - Derm Derm: Warm and dry - Extremities Extremities: No edema, No calf tenderness / cord - Neuro Neuro: Alert and oriented X 3, 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, No motor deficit, No sensory deficit, Normal speech Eye Opening: Spontaneous Motor: Obeys Commands Verbal: Oriented GCS Score: 15 - Psych Psych: Normal mood, Normal affect Results - Vitals Vitals: Vital Signs - 24 hr 08/12/22 08/12/22 17:48 18:32 Temperature 36.8 C Heart Rate 61 65 Respiratory 14 Rate Blood Pressure 182/82 H 160/81 H O2 Saturation 95 Oxygen O2 Source Room air PD Medical Decision Making - ED course Complexity details: considered differential, d/w patient ED course: In accordance with the [facility] clinical policy from August 2012, this patient has asymptomatic elevated blood pressure without evidence of acute target organ injury. There are also no signs of acute stroke, cardiac ischemia, pulmonary edema, encephalopathy or acute congestive heart failure. Therefore the patient will be referred to their primary care provider for follow-up of their asymp tomatic hypertension. Patient will have his amlodipine increased from 5 mg to 10 mg and have him follow-up with his doctor. Patient counseled regarding signs and symptoms for which I believe and urgent re-evaluation would be necessary. Patient with good understanding of and agreement to plan and is comfortable going home at this time This document was made in part using voice recognition software. While efforts are made to proofread this document, sound alike and grammatical errors may occur. Departure - Departure Disposition: Home, Self Care Clinical Impression: Hypertension Qualifiers: Hypertension type: unspecified Qualified Code(s): I10 - Essential (primary) hypertension Condition: Good Instructions: ED HTN Established Follow-Up: Meenu Varela PA-C [Primary Care Provider] - Within 1 week Prescriptions: Amlodipine Besylate [Norvasc] 10 mg PO DAILY #30 tablet Comments: We will adjust your amlodipine from 5 mg daily to 10 mg daily. Please continue your other medications as currently prescribed. Please return if you worsen. You can check your blood pressure once per day, write it in a log and take it to your next doctor appointment. Your prescription was sent to [facility] in [place]. Please return for chest pain, shortness of breath, severe headache, numbness, tingling or other new or worrisome symptoms. Discharge Date/Time: 08/12/22 18:39
[2022-08-12 18:33] VITALS: BP 160/81
== END 2022-08-12 18:39 | disposition home or self-care (01) ==
LOC: ED 17:44
DX: I10 Essential (primary) hypertension (principal)
CPT/HCPCS: 99282; 99283; A9270

== ENCOUNTER 2022-08-19 09:52 | Outpatient (CLI) | payer MEDICARE ==
[2022-08-19 12:49] LABS: CALCIUM 9.2 mg/dL (8.5-10.3); CREATININE 1.6 mg/dL (0.6-1.2); POTASSIUM 4.1 mmol/L (3.5-5.0)
== END 2022-08-19 09:53 | disposition home or self-care (01) ==
LOC: LAB.N 09:52
PROVIDERS: ATTEND Physician Assistant
DX: I12.9 Hypertensive chronic kidney disease with stage 1 through stage 4 chronic kidney disease, or unspecified chronic kidney disease (principal); N18.32 Chronic kidney disease, stage 3b
CPT/HCPCS: 36415; 80048

== ENCOUNTER 2022-10-07 13:32 | Outpatient (CLI) | payer MEDICARE ==
[2022-10-07 18:12] LABS: CALCIUM 9.2 mg/dL (8.5-10.3); CREATININE 1.7 mg/dL (0.6-1.2); POTASSIUM 3.8 mmol/L (3.5-5.0)
== END 2022-10-07 13:33 | disposition home or self-care (01) ==
LOC: LAB.N 13:32
PROVIDERS: ATTEND Physician Assistant
DX: I12.9 Hypertensive chronic kidney disease with stage 1 through stage 4 chronic kidney disease, or unspecified chronic kidney disease (principal); N18.32 Chronic kidney disease, stage 3b
CPT/HCPCS: 36415; 80048

== ENCOUNTER 2022-11-04 10:10 | Inpatient (IN) | payer MEDICARE ==
[2022-11-04] MEDS ORDERED: IPRATROPIUM/ALBUTEROL 3 ML NEB INH STA (10:31)
[2022-11-04] MEDS ORDERED: cefTRIAXone 1 GM in SODIUM CHLORIDE 0.9% MINIBAG 100 ML IV STA (11:18)
[2022-11-04] MEDS ORDERED: AZITHROMYCIN INJ 500 MG in SODIUM CHLORIDE 0.9% 250 ML IV STA (11:18)
--- NOTE | 2022-11-04 11:35 | ED Physician Documentation ---
History of Present Illness - Stated complaint Stated Complaint: FEVER/CHILLS/SOA - Chief complaint Chief Complaint: Fever - History obtained from History obtained from: Patient, Family - Additonal information Additional information: 77-year-old gentleman with history of bronchiectasis, asplenia related to trauma at age 18, hypertension, and hyperlipidemia. He started to get sick about 6 days ago with sore throat but really started to feel worse about 4 days ago with nonproductive cough, body aches, and shortness of breath. He noted his home pulse oximeter to be reading around 88%. He did recently travel to [place] by air with multiple sick contacts contacts with viral syndrome. 2 negative COVID test at home. PD PAST MEDICAL HISTORY - Past Medical History Past Medical History: Yes Cardiovascular: Hypertension Respiratory: None Neuro: None Endocrine/Autoimmune: None GI: GERD, Diverticulitis : None HEENT: Chronic vision loss Psych: None Musculoskeletal: Osteoarthritis, Chronic back pain Derm: None - Past Surgical History Ortho: Other - Present Medications Home Medications: Ambulatory Orders Medication Instructions Recorded Confirmed Atorvastatin Calcium 20 mg PO QPM 06/09/17 08/12/22 Famotidine 40 mg PO DAILY 07/05/21 08/12/22 Losartan Potassium [Cozaar] 100 mg PO DAILY 07/05/21 08/12/22 Metoprolol Tartrate [Lopressor] 25 mg PO QPM 07/05/21 08/12/22 Metoprolol Tartrate [Lopressor] 50 mg PO DAILY 07/05/21 08/12/22 Sertraline [Zoloft] 25 mg PO DAILY 07/05/21 08/12/22 Amlodipine Besylate [Norvasc] 10 mg PO DAILY #30 tablet 08/12/22 - Allergies Allergies/Adverse Reactions: Allergies Allergy/AdvReac Type Severity Reaction Status Date / Time No Known Drug Allergies Allergy Verified 11/04/22 10:20 - Social History Does the pt smoke?: No Smoking Status: Never smoker PD ED PE NORMAL - Vitals Vital signs reviewed: Yes - General General: Alert and oriented X 3, No acute distress - HEENT HEENT: PERRL, EOMI - Neck Neck: Supple, no meningeal sign, No bony TTP - Cardiac Cardiac: RRR, No murmur - Respiratory Respiratory: Other (Rhonchi in all lung cook except right upper, nonlabored) - Abdomen Abdomen: Non tender - Back Back: No CVA TTP, No spinal TTP - Derm Derm: Normal color, Warm and dry - Extremities Extremities: No edema, No calf tenderness / cord - Neuro Neuro: Alert and oriented X 3, Normal speech Results - Vitals Vitals: Vital Signs - 24 hr 11/04/22 11/04/22 11/04/22 10:16 10:35 10:52 Temperature 36.6 C Heart Rate 84 79 81 Respiratory 20 20 22 Rate Blood Pressure 114/48 L 100/53 L O2 Saturation 88 L 90 L If not protocol 2 : Oxygen Flow, liters/minute 11/04/22 11/04/22 11:36 12:12 Temperature Heart Rate 90 87 Respiratory 22 21 Rate Blood Pressure 102/62 98/58 L O2 Saturation 90 L 94 If not protocol 3 4 : Oxygen Flow, liters/minute Oxygen O2 Source Nasal cannula Oxygen Flow Rate 4 - EKG (time done) 1140 EKG releavant findings:: EKG personally interpreted by author of this note. Relevant findings are: Rate: Rate (enter#) (89) Rhythm: NSR [place]: Normal Intervals: Normal FL QRS: Normal Ischemia: Normal ST segments - Labs Labs: Laboratory Tests 11/04/22 11/04/22 11/04/22 10:30 11:38 11:38 WBC 11.6 H RBC 4.01 L Hgb 12.1 L Hct 36.1 L MCV 90.0 MCH 30.2 MCHC 33.5 RDW 12.8 Plt Count 164 MPV 9.8 Neut # (Auto) 10.4 H Lymph # (Auto) 0.6 L [place] # (Auto) 0.5 Eos # (Auto) 0.1 Baso # (Auto) 0.1 Absolute Nucleated RBC 0.00 Nucleated RBC % 0.0 Sodium 135 Potassium 3.4 L Chloride 100 L Carbon Dioxide 23 Anion Gap 12.0 BUN 32 H Creatinine 2.6 H Estimated GFR (MDRD) 24 L Glucose 182 H Lactic Acid Calcium 8.9 Total Bilirubin 1.1 H AST 36 ALT 34 Alkaline Phosphatase 58 Total Protein 7.0 Albumin 3.0 L Globulin 4.0 Albumin/Globulin Ratio 0.8 L Nasal Adenovirus (PCR) NOT DETECTED Nasal B. parapertussis DNA (PCR) NOT DETECTED Nasal Coronavir 229E PCR NOT DETECTED Nasal Coronavir HKU1 PCR NOT DETECTED Nasal Coronavir NL63 PCR NOT DETECTED Nasal Coronavir OC43 PCR NOT DETECTED Nasal Enterovir/Rhinovir PCR NOT DETECTED Nasal Influenza B PCR NOT DETECTED Nasal Influenza A PCR NOT DETECTED Nasal Parainfluen 1 PCR NOT DETECTED Nasal Parainfluen 2 PCR NOT DETECTED Nasal Parainfluen 3 PCR NOT DETECTED Nasal Parainfluen 4 PCR NOT DETECTED Nasal RSV (PCR) NOT DETECTED Nasal B.pertussis DNA PCR NOT DETECTED Nasal C.pneumoniae (PCR) NOT DETECTED [place]iel Human Metapneumo PCR NOT DETECTED Nasal M.pneumoniae (PCR) NOT DETECTED Nasal SARS-CoV-2 (PCR) NOT DETECTED 11/04/22 11:38 WBC RBC Hgb Hct MCV MCH MCHC RDW Plt Count MPV Neut # (Auto) Lymph # (Auto) [place] # (Auto) Eos # (Auto) Baso # (Auto) Absolute Nucleated RBC Nucleated RBC % Sodium Potassium Chloride Carbon Dioxide Anion Gap BUN Creatinine Estimated GFR (MDRD) Glucose Lactic Acid 2.5 H Calcium Total Bilirubin AST ALT Alkaline Phosphatase Total Protein Albumin Globulin Albumin/Globulin Ratio Nasal Adenovirus (PCR) Nasal B. parapertussis DNA (PCR) Nasal Coronavir 229E PCR Nasal Coronavir HKU1 PCR Nasal Coronavir NL63 PCR Nasal Coronavir OC43 PCR Nasal Enterovir/Rhinovir PCR Nasal Influenza B PCR Nasal Influenza A PCR Nasal Parainfluen 1 PCR Nasal Parainfluen 2 PCR Nasal Parainfluen 3 PCR Nasal Parainfluen 4 PCR Nasal RSV (PCR) Nasal B.pertussis DNA PCR Nasal C.pneumoniae (PCR) Ottoniel Human Metapneumo PCR Nasal M.pneumoniae (PCR) Nasal SARS-CoV-2 (PCR) PD Medical Decision Making - ED course ED course: This is a 77-year-old gentleman with asplenia and bronchiectasis who presents with a multilobar pneumonia and is also found to have INGA and hypoxemia. He was given Rocephin and Zithromax after blood cultures and some IV fluids for soft blood pressures. Spoke with Dr. Barragan for admission at 12:14 PM. Departure - Departure Disposition: 66 [facility] DC/Xfer Clinical Impression: Asplenia, INGA (acute kidney injury) Community acquired pneumonia Qualifiers: Laterality: unspecified laterality Qualified Code(s): J18.9 - Pneumonia, unspecified organism Respiratory failure Qualifiers: Chronicity: acute Respiratory failure complication: hypoxia Qualified Code(s): J96.01 - Acute respiratory failure with hypoxia Condition: Serious
--- NOTE | 2022-11-04 11:39 | XRAY Report ---
PROCEDURE: Chest 1 View X-Ray INDICATIONS: SOA TECHNIQUE: One view of the chest was acquired. COMPARISON: None. FINDINGS: Surgical changes and devices: None. Lungs and pleura: Multifocal airspace opacities. Elevated left hemidiaphragm. Mediastinum: Mediastinal contours appear normal. Heart size is normal. Bones and chest wall: No suspicious bony lesions. Overlying soft tissues appear unremarkable. IMPRESSION: Multifocal airspace opacities, concerning for multifocal pneumonia or aspiration. Reviewed by: Arturo Marie on 11/04/2022 11:38 AM PDT Approved by: Arturo Marie on 11/04/2022 11:38 AM PDT Station ID: [id number]
[2022-11-04 11:45] LABS: B. PARAPERTUSSIS- RESP PCR PAN NOT DETECTED; B. PERTUSSIS- RESP PCR PANEL NOT DETECTED; C. PNEUMONIAE- RESP PCR PANEL NOT DETECTED; CORONAVIRUS 229E-RESP PCR NOT DETECTED; CORONAVIRUS HKU1-RESP PCR NOT DETECTED; CORONAVIRUS NL63-RESP PCR NOT DETECTED; CORONAVIRUS OC43-RESP PCR NOT DETECTED; HUMAN METAPNEUMOVIRUS NOT DETECTED; INFLUENZA A- RESP PCR PANEL NOT DETECTED; INFLUENZA B - RESP PCR PANEL NOT DETECTED; M. PNEUMONIAE- RESP PCR PANEL NOT DETECTED; PARAINFLUENZA VIRUS 1 NOT DETECTED; PARAINFLUENZA VIRUS 2 NOT DETECTED; PARAINFLUENZA VIRUS 3 NOT DETECTED; PARAINFLUENZA VIRUS 4 NOT DETECTED; RHINOVIRUS/ENTEROVIRUS NOT DETECTED; RSV- RESP PCR PANEL NOT DETECTED; SARS-CoV-2 -RESP PCR PANEL NOT DETECTED
[2022-11-04 11:48] LABS: BASOPHILS # (AUTO) 0.1 10^3/uL (0.0-0.1); BASOPHILS % (AUTO) 0.8 %; EOSINOPHILS # (AUTO) 0.1 10^3/uL (0.0-0.7); EOSINOPHILS % (AUTO) 0.8 %; HCT - HEMATOCRIT 36.1 % (42.0-52.0); HGB - HEMOGLOBIN 12.1 g/dL (14.0-18.0); LYMPHOCYTES # (AUTO) 0.6 10^3/uL (1.5-3.5); LYMPHOCYTES % (AUTO) 4.8 %; MEAN CORPUSCULAR HEMOGLOBIN 30.2 pg (27.0-31.0); MEAN CORPUSCULAR HGB CONC 33.5 g/dL (32.0-36.0); MEAN PLATELET VOLUME 9.8 fL (7.4-11.4); MONOCYTES # (AUTO) 0.5 10^3/uL (0.0-1.0); MONOCYTES % (AUTO) 3.9 %; NEUTROPHILS # (AUTO) 10.4 10^3/uL (1.5-6.6); NEUTROPHILS % (AUTO) 89.4 %; PLT - PLATELET COUNT 164 10^3/uL (130-450); RED BLOOD COUNT 4.01 10^6/uL (4.70-6.10); RED CELL DISTRIBUTION WIDTH 12.8 % (12.0-15.0); WHITE BLOOD COUNT 11.6 x10^3/uL (4.8-10.8)
[2022-11-04 11:56] LABS: ALBUMIN/GLOBULIN RATIO 0.8 (1.0-2.2); BILIRUBIN,TOTAL 1.1 mg/dL (0.2-1.0); CALCIUM 8.9 mg/dL (8.5-10.3); CREATININE 2.6 mg/dL (0.6-1.2); POTASSIUM 3.4 mmol/L (3.5-5.0)
[2022-11-04 11:57] LABS: LACTIC ACID, VENOUS 2.5 mmol/L (0.5-2.2)
[2022-11-04] MEDS ORDERED: SODIUM CHLORIDE 0.9% 1,000 ML IV STA (12:11)
[2022-11-04 12:47] LABS: GLUCOSE, URINE (UA) NEGATIVE (NEGATIVE); KETONES,URINE (UA) TRACE mg/dL (NEGATIVE); LEUKOCYTE ESTERASE, URINE NEGATIVE (NEGATIVE); NITRITE,URINE POSITIVE (NEGATIVE); OCCULT BLOOD,URINE TRACE-INTA (NEGATIVE); PROTEIN,URINE >=300 mg/dL (NEGATIVE); UROBILINOGEN,URINE 4 E.U./dL (NORMAL)
[2022-11-04 13:00] LABS: BILIRUBIN,URINE NEGATIVE (NEGATIVE); CLARITY,URINE SL. CLOUDY (CLEAR); ICTOTEST,URINE NEGATIVE; RBC,URINE 0-5 /HPF (0-5); SQUAMOUS EPITHELIAL CELL,UR RARE Squamous (<= Few); WBC,URINE 0-3 /HPF (0-3)
[2022-11-04 13:01] LABS: BACTERIA,URINE Many /HPF (None Seen); EPITHELIAL CELLS,UR MOD Renal Tubular /HPF (<= Few)
--- NOTE | 2022-11-04 13:36 | HISTORY & PHYSICAL EXAMINATION ---
Chief Complaint - Chief Complaint Chief Complaint: SOA History of Present Illness - Admitted From Admitted From:: ED - History Obtained From History obtained from: ED provider and chart review - History of Present Illness HPI Comment/Other: This is a 77 y/o male with Hx of asplenia from trauma at age 18, Hx of bronchiectasis, who recently travelled by airplane, and admits contact with sick people. Upon return, he started to have a cough, sputum production, then wheezing, SOB and muscle aches for the last 4 days. He is not sure if he had a fever. Today he monitored his O2 sat and it was 88% on R.A. He came to the ER, and also had a low saturation of 88% on room air documented. W/U showed a WBC of 11.6, multifocal pneumonia on CXR, INGA with a creat of 2.6 (his usual creat is 1.6), elevated Lactic Acid level of 2.5. His resp panel and Covid test are (-). Cultures were obtained in ER and he was given iv Ceftriaxone and iv Zithromax and started on suppl O2. The ER provider reached out to me on the Hospitalist team and we discussed this patient. He will be admitted to treat acute respiratory failure with hypoxia, and sepsis from a Community acquired PNA in a pt who has bronchiectasis and also has asplenia and is therefore at risk of infections from encapsulated bacteria. History - Past Medical History Cardiovascular: reports: Hypertension Respiratory: reports: Other (Bronchiectasis, documented on CT scan in the past) Neuro: reports: None Endocrine/Autoimmune: reports: Other (Asplenia after trauma, at age 18) GI: reports: GERD, Diverticulitis : reports: None HEENT: reports: Chronic vision loss Psych: reports: None Musculoskeletal: reports: Osteoarthritis, Chronic back pain Derm: reports: None MRSA Hx?: No - Past Surgical History Ortho: reports: Other - Family & Social History Living arrangement: At home Living Situation: With spouse/s.o. Meds/Allgy - Home Medications Home Medications: Ambulatory Orders Medication Instructions Recorded Confirmed Atorvastatin Calcium 20 mg PO QPM 06/09/17 11/04/22 Famotidine 40 mg PO DAILY PRN 07/05/21 08/12/22 Losartan Potassium [Cozaar] 100 mg PO DAILY 07/05/21 11/04/22 Metoprolol Tartrate [Lopressor] 50 mg PO BID 07/05/21 11/04/22 Sertraline [Zoloft] 25 mg PO DAILY 07/05/21 11/04/22 Amlodipine Besylate [Norvasc] 10 mg PO DAILY #30 tablet 08/12/22 11/04/22 Aspirin [Aspirin EC] 1 tab PO DAILY 11/04/22 11/04/22 Chlorthalidone 12.5 mg PO DAILY 11/04/22 11/04/22 Multivitamin W/Minerals [Theragran 1 tab PO DAILY 11/04/22 11/04/22 M] - Allergies Allergies/Adverse Reactions: Allergies Allergy/AdvReac Type Severity Reaction Status Date / Time No Known Drug Allergies Allergy Verified 11/04/22 10:20 Review of Systems - Constitutional Constitutional: reports: Weakness - Respiratory Respiratory: reports: Cough, Sputum production, Wheezing, SOB at rest - All Other Systems All Other Systems: reports: Reviewed and negative Exam - Vital Signs Vital Signs: Vital Signs x48h Temp Pulse Resp BP Pulse Ox O2 Flow Rate 11/04/22 13:06 83 22 99/62 94 6 11/04/22 12:40 54 L 21 109/85 H 93 4 11/04/22 12:12 87 21 98/58 L 94 4 11/04/22 11:36 90 22 102/62 90 L 3 11/04/22 10:52 81 22 11/04/22 10:35 79 20 100/53 L 90 L 2 11/04/22 10:16 36.6 C 84 20 114/48 L 88 L - Physical Exam General Appearance: positive: Mild distress (Is SOB with activity, is on O2 per n.c.) Eyes Bilateral: positive: Normal inspection ENT: positive: Dry mucous membranes, Other (Has a mild jaw tremor. Face is flushed) Neck: positive: Nml inspection, No JVD Respiratory: positive: Wheezes, Other (Poor air mvm all lung cook) Cardiovascular: positive: Regular rate & rhythm (distant heart sounds) Abdomen: positive: Non-tender, No distention Skin: positive: Warm, Dry Extremities: positive: Non-tender, No pedal edema Neurologic/Psychiatric: positive: Oriented x3, Motor nml (except mild tremor of jaw seen) Sepsis Event Note (H) - Evaluation Current Stage of Sepsis: Sepsis - Sepsis Criteria Sepsis Criteria: Respiratory: Increasing oxygen requirements, Metabolic: lactate > 2 mmol/L Conclusion/Plan - Problem List (1) Acute respiratory failure with hypoxia Conclusion/Plan: The etiology appears to be this COPD exacerbation and a community-acquired pneumonia which is multifocal Plan: We will give supplemental O2 Target saturation will be 90% or above in this patient with underlying longstanding chronic lung disease (bronchiectasis). Treat the underlying pneumonia and start pulmonary toilet (2) Multifocal pneumonia Conclusion/Plan: Etiology is probably from contact with many individuals while he had recent trip including air travel. He has been nursing his shortness of breath, muscle aches and cough for 4 days until he was so short of breath he had presented and o ximetry reveals low O2 saturations and chest x-ray shows multifocal pneumonia. He has a high LActic Acid level but no other criteria for sepsis. Plan: Continue with supplemental O2 Begin empiric IV antibiotics with ceftriaxone and Zithromax Await sputum culture and blood culture results to tailor antibiotics Begin Mucinex for pulmonary toilet Recheck L.A. to assure it is improving Will follow CBC daily (3) Asplenia Conclusion/Plan: This gives him risk of infections from encapsulated organisms Plan: Start empiric iv antibx Follow CBC daily Await cx results (4) Bronchiectasis Conclusion/Plan: This gives him risk of significant mucous plugging and congestion Plan: Will start Mucinex He may benefit from a vest for Chest PT ordered, or "cupping and clapping" If he is on any pulm meds, will restart these when his med list is reconciled by pharmacy (5) Acute kidney injury superimposed on CKD Conclusion/Plan: He has worsening of creat and his U/A (results reviewed) show casts and High protein, suggesting CKD, and U/A is also consistent with dehydration : Spec Grav > 1.03 Plan: Avoid nephrotoxins Start iv fluids Follow BMP daily (6) UTI (urinary tract infection) Conclusion/Plan: His U/A also has features of a UTI Plan: The Ceftriaxone will emprically cover UTI bacteria Await cx results (7) Hx of essential hypertension Conclusion/Plan: He is running "soft"BPs here Plan: Will order usual home meds when appropriate and when med list is reconciled by pharmacy - Lab Results Fish Bones: 11/04/22 11:38 11/04/22 11:38 - Diagnostic Imaging Results Diagnostic Imaging Results: positive: Final report reviewed - Other Other Results/Comments: Attestation: The patient is expected to be discharged or transferred to another facility within 96 hour: Yes.
[2022-11-04] MEDS ORDERED: SODIUM CHLORIDE FLUSH 0.9% 10 ML SYRINGE IVP PRN (15:57)
--- NOTE | 2022-11-04 17:35 | Discharge Plan ---
Discharge Plan Condition: Serious No Smoking: If you smoke, Please STOP! Call for help. Follow-up with: Meenu Varela PA-C [Primary Care Provider] -
[2022-11-04] MEDS: SODIUM CHLORIDE FLUSH 0.9% 10 ML SYRINGE IVP SCH (18:00)
--- NOTE | 2022-11-04 18:02 | PHARMACY PROGRESS NOTE ---
- Best Possible Medication History Admit Date and Time: 11/04/22 1557 Processed by: Pharmacy Medication History completed: Yes Patient Interview: Completed Secondary Source(s): Pharmacy records (pt fills at [facility] and [place] [facility]) As the person ultimately responsible for medication therapy, providers are able to order a medication from an existing home medication list in [facility] via the "Reconcile Routine" prior to Confirmation of that medication by family support specialist. Such practice is discouraged except when the physician, in their clinical judgment, deems that a medical need exists for a medication without regard to previous use.
[2022-11-04] MEDS: HEPARIN 5,000 UNIT/ML VIAL SUBQ SCH (20:37)
[2022-11-05] MEDS: SODIUM CHLORIDE FLUSH 0.9% 10 ML SYRINGE IVP SCH ×3 (04:43→16:16)
[2022-11-05] MEDS: IPRATROPIUM/ALBUTEROL 3 ML NEB INH SCH ×4 (07:20→19:20)
[2022-11-05] MEDS: HEPARIN 5,000 UNIT/ML VIAL SUBQ SCH ×2 (08:09→20:29)
[2022-11-05] MEDS: SERTRALINE 25 MG TABLET PO SCH (08:09)
[2022-11-05] MEDS: guaiFENesin 600 MG TABLET PO SCH ×2 (08:09→20:25)
[2022-11-05] MEDS: ASPIRIN EC 81 MG TABLET PO SCH (08:09)
[2022-11-05] MEDS: METOPROLOL TARTRATE 50 MG TABLET PO SCH ×2 (08:09→20:25)
[2022-11-05] MEDS: MULTIVITAMIN W/MINERALS TABLET PO SCH (08:09)
[2022-11-05 08:16] LABS: BASOPHILS % (AUTO) 0.3 %; EOSINOPHILS # (AUTO) 0.1 10^3/uL (0.0-0.7); EOSINOPHILS % (AUTO) 0.4 %; LYMPHOCYTES # (AUTO) 0.8 10^3/uL (1.5-3.5); LYMPHOCYTES % (AUTO) 6.1 %; MEAN CORPUSCULAR HEMOGLOBIN 30.3 pg (27.0-31.0); MEAN CORPUSCULAR HGB CONC 34.3 g/dL (32.0-36.0); MEAN CORPUSCULAR VOLUME 88.4 fL (80.0-94.0); MEAN PLATELET VOLUME 9.5 fL (7.4-11.4); MONOCYTES # (AUTO) 0.7 10^3/uL (0.0-1.0); MONOCYTES % (AUTO) 5.2 %; NEUTROPHILS # (AUTO) 11.8 10^3/uL (1.5-6.6); NEUTROPHILS % (AUTO) 87.6 %; PLT - PLATELET COUNT 172 10^3/uL (130-450); RED BLOOD COUNT 3.96 10^6/uL (4.70-6.10); RED CELL DISTRIBUTION WIDTH 13.1 % (12.0-15.0); WHITE BLOOD COUNT 13.5 x10^3/uL (4.8-10.8)
[2022-11-05 08:40] LABS: CALCIUM 8.9 mg/dL (8.5-10.3)
[2022-11-05] MEDS ORDERED: guaiFENesin/CODEINE 5 ML UDC PO PRN (09:28)
[2022-11-05] MEDS: LOSARTAN 50 MG TABLET PO SCH (10:11)
[2022-11-05] MEDS: amLODIPine 5 MG TABLET PO SCH (10:11)
[2022-11-05] MEDS: cefTRIAXone 1 GM in SODIUM CHLORIDE 0.9% MINIBAG 100 ML IV SCH (12:04)
[2022-11-05] MEDS: AZITHROMYCIN INJ 500 MG in SODIUM CHLORIDE 0.9% 250 ML IV SCH (13:35)
--- NOTE | 2022-11-05 18:30 | PROVIDER PROGRESS NOTE ---
Subjective - Prog Note Date Prog Note Date: 11/05/22 Prog Note Time: 18:27 - Subjective Pt reports feeling: Improved Subjective: Patient reports slight improvement since yesterday. He still requires 4L/min of oxygen and has a dry cough. He would like to try Robitussin for cough management Objective - Vital Signs/Intake & Output Reviewed Vital Signs: Yes Vital Signs: Vital Signs x48h Temp Pulse Pulse Resp BP Pulse Ox O2 Flow Rate 11/05/22 16:09 36.7 C 108 H 18 133/62 H 93 4 11/05/22 15:42 74 20 11/05/22 11:59 36.9 C 107 H 20 143/70 H 94 4 11/05/22 11:14 74 20 Intake & Output: Intake & Output 11/02/22 11/03/22 11/04/22 11/05/22 23:59 23:59 23:59 23:59 Intake Total 1969 1460 Balance 1969 1460 - Objective General Appearance: positive: Mild distress ENT: positive: Other (mild rhinophyma) Respiratory: positive: No respiratory distress, Wheezes, Other (Posterior crackles) Cardiovascular: positive: Regular rate & rhythm Skin: positive: Warm, Dry Neurologic/Psychiatric: positive: Oriented x3, Mood/affect nml - Lab Results Fish Bones: 11/05/22 08:10 11/05/22 08:10 Other Labs: Lab Results x24hrs 11/05/22 11/05/22 Range/Units 08:10 08:10 WBC 13.5 H (4.8-10.8) x10^3/uL RBC 3.96 L (4.70-6.10) 10^6/uL Hgb 12.0 L (14.0-18.0) g/dL Hct 35.0 L (42.0-52.0) % MCV 88.4 (80.0-94.0) fL MCH 30.3 (27.0-31.0) pg MCHC 34.3 (32.0-36.0) g/dL RDW 13.1 (12.0-15.0) % Plt Count 172 (130-450) 10^3/uL MPV 9.5 (7.4-11.4) fL Neut # (Auto) 11.8 H (1.5-6.6) 10^3/uL Lymph # (Auto) 0.8 L (1.5-3.5) 10^3/uL [place] # (Auto) 0.7 (0.0-1.0) 10^3/uL Eos # (Auto) 0.1 (0.0-0.7) 10^3/uL Baso # (Auto) 0.0 (0.0-0.1) 10^3/uL Absolute Nucleated RBC 0.00 x10^3/uL Nucleated RBC % 0.0 /100WBC Sodium 137 (135-145) mmol/L Potassium 3.0 L (3.5-5.0) mmol/L Chloride 101 (101-111) mmol/L Carbon Dioxide 24 (21-32) mmol/L Anion Gap 12.0 (6-13) BUN 40 H (6-20) mg/dL Creatinine 2.0 H (0.6-1.2) mg/dL Estimated GFR (MDRD) 32 L (>89) Glucose 137 H (70-100) mg/dL Calcium 8.9 (8.5-10.3) mg/dL ABX Reporting Has patient been on IV antibiotics over the past 48 hours?: Yes Sepsis Event Note (H) - Evaluation Current Stage of Sepsis: Sepsis - Sepsis Criteria Sepsis Criteria: Respiratory: Increasing oxygen requirements, Metabolic: lactate > 2 mmol/L Assessment/Plan - Problem List (1) Acute respiratory failure with hypoxia Impression: (1) Acute respiratory failure with hypoxia Conclusion/Plan: The etiology appears to COPD exacerbation and a community-acquired pneumonia which is likely multifocal. No sputum culture drawn because he has a dry cough. Decreased O2 from 4L/min to 2 L/min and will continue to monitor patient oxygen saturation. Plan: I recommended that he try to move from his bed to the chair every few hours t ira. We will give supplemental O2 at 2L/min and monitor O2 sat Target saturation will be 90% or above in this patient with underlying longstanding chronic lung disease (bronchiectasis). Treat the underlying pneumonia and start pulmonary toilet via incentive spirometry (2) Multifocal pneumonia Conclusion/Plan: Etiology is probably from contact with many individuals while he had recent trip including air travel. Initially, he thought he had a simple cold and thought he could fight off the shortness of breath, muscle aches and cough on his own. Four days later, he was so short of breath he presented with low O2 sat (88%) and chest x-ray showed multifocal pneumonia. Blood and urine cultures were negative. His WBC increased today from 11.6 to 13.5, which combined with his tachycardia, meets SIRS criteria. However, he does not meet sepsis criteria overall. Since yesterday, his lactic acid level has returned to normal which is reassuring. Plan: Continue with supplemental O2 at 2L/min and monitor O2 Continue IV antibiotics with ceftriaxone 1g and Zithromax 500mg Begin Mucinex for pulmonary toilet Will follow CBC daily (3) Asplenia Conclusion/Plan: This gives him risk of infections from encapsulated organisms Plan: Continue iv antibiotics above Follow CBC daily (4) Bronchiectasis Conclusion/Plan: This gives him risk of significant mucous plugging and congestion. He is unsure why he has bronchiectasis but has seen pulmonology in the past for this. Plan: Continue Mucinex Start Robitussin Continue incentive spironmetry He may benefit from a vest for Chest PT His med list has been reconciled and he is on his home medications (5) Acute kidney injury superimposed on CKD Conclusion/Plan: He has worsening of creatinine and his U/A (results reviewed) show casts and high protein, suggesting CKD. U/A is also consistent with dehydration: Spec Grav > 1.03 Plan: Avoid nephrotoxins Continue IV fluids Follow BMP daily (6) UTI (urinary tract infection) Conclusion/Plan: His U/A also has features of a UTI with positive nitrites Plan: The Ceftriaxone will empirically cover UTI bacteria Urine culture negative (7) Hx of essential hypertension Conclusion/Plan: His blood pressures have increased to 133/62 and are no longer "soft" Plan: His med list has been reconciled and he is on his home medications
[2022-11-05] MEDS: ATORVASTATIN 10 MG TABLET PO SCH (20:25)
[2022-11-06] MEDS: SODIUM CHLORIDE FLUSH 0.9% 10 ML SYRINGE IVP SCH ×3 (00:27→16:26)
[2022-11-06] MEDS: IPRATROPIUM/ALBUTEROL 3 ML NEB INH SCH ×2 (05:02→10:47)
[2022-11-06 05:27] LABS: BASOPHILS % (AUTO) 0.3 %; EOSINOPHILS # (AUTO) 0.1 10^3/uL (0.0-0.7); EOSINOPHILS % (AUTO) 0.5 %; HCT - HEMATOCRIT 33.5 % (42.0-52.0); HGB - HEMOGLOBIN 11.2 g/dL (14.0-18.0); LYMPHOCYTES # (AUTO) 0.9 10^3/uL (1.5-3.5); LYMPHOCYTES % (AUTO) 5.5 %; MEAN CORPUSCULAR HEMOGLOBIN 29.6 pg (27.0-31.0); MEAN CORPUSCULAR HGB CONC 33.4 g/dL (32.0-36.0); MEAN CORPUSCULAR VOLUME 88.6 fL (80.0-94.0); MEAN PLATELET VOLUME 9.6 fL (7.4-11.4); MONOCYTES % (AUTO) 6.2 %; NEUTROPHILS # (AUTO) 13.7 10^3/uL (1.5-6.6); NEUTROPHILS % (AUTO) 86.8 %; PLT - PLATELET COUNT 179 10^3/uL (130-450); RED BLOOD COUNT 3.78 10^6/uL (4.70-6.10); RED CELL DISTRIBUTION WIDTH 13.2 % (12.0-15.0); WHITE BLOOD COUNT 15.8 x10^3/uL (4.8-10.8)
[2022-11-06 05:42] LABS: CALCIUM 8.7 mg/dL (8.5-10.3); CREATININE 1.8 mg/dL (0.6-1.2); POTASSIUM 3.2 mmol/L (3.5-5.0)
[2022-11-06] MEDS: polyethylene glycoL 3350 17 GM PACKET PO SCH (08:02)
[2022-11-06] MEDS: SERTRALINE 25 MG TABLET PO SCH (08:03)
[2022-11-06] MEDS: METOPROLOL TARTRATE 50 MG TABLET PO SCH ×2 (08:03→21:30)
[2022-11-06] MEDS: guaiFENesin 600 MG TABLET PO SCH ×2 (08:03→21:33)
[2022-11-06] MEDS: MULTIVITAMIN W/MINERALS TABLET PO SCH (08:03)
[2022-11-06] MEDS: amLODIPine 5 MG TABLET PO SCH (08:03)
[2022-11-06] MEDS: LOSARTAN 50 MG TABLET PO SCH (08:03)
[2022-11-06] MEDS: ASPIRIN EC 81 MG TABLET PO SCH (08:03)
[2022-11-06] MEDS: HEPARIN 5,000 UNIT/ML VIAL SUBQ SCH ×2 (08:04→21:33)
[2022-11-06] MEDS: cefTRIAXone 1 GM in SODIUM CHLORIDE 0.9% MINIBAG 100 ML IV SCH (11:59)
--- NOTE | 2022-11-06 12:32 | PROVIDER PROGRESS NOTE ---
Subjective - Prog Note Date Prog Note Date: 11/06/22 Prog Note Time: 12:26 - Subjective Pt reports feeling: Improved (Patient is out of bed today and moving around more) Subjective: Patient feels that he is slowly improving. He had a rough night last night with lots of coughing. The coughing causes chest wall and abdominal pain, and he requested Tylenol for this. He has been sitting up in a chair for most of today, which he states is much better than lying in bed. He also reports that the Duoneb q4h is not helping him very much and he is wondering if he can just request them as needed. Objective - Vital Signs/Intake & Output Reviewed Vital Signs: Yes Vital Signs: Vital Signs x48h Temp Pulse Pulse Resp BP BP Pulse Ox 11/06/22 12:07 37.0 C 111 H 18 120/71 92 11/06/22 10:47 90 20 11/06/22 08:58 11/06/22 08:03 136/72 H 11/06/22 08:00 37.1 C 122 H 18 136/72 H 90 L 11/06/22 05:02 109 H 19 O2 Flow Rate 11/06/22 12:07 4 11/06/22 10:47 11/06/22 08:58 4 11/06/22 08:03 11/06/22 08:00 4 11/06/22 05:02 4 Intake & Output: Intake & Output 11/03/22 11/04/22 11/05/22 11/06/22 23:59 23:59 23:59 23:59 Intake Total 1969 1710 220 Balance 1969 1710 220 - Objective General Appearance: positive: No acute distress Eyes Bilateral: positive: Normal inspection ENT: negative: Purulent nasal drainage Neck: positive: No JVD, Trachea midline. negative: Stiff neck Respiratory: positive: Chest non-tender, Other (Crackles). negative: Wheezes Cardiovascular: positive: Regular rate & rhythm, Tachycardia Skin: positive: Warm, Dry Extremities: positive: No pedal edema Neurologic/Psychiatric: positive: Oriented x3, Mood/affect nml - Lab Results Fish Bones: 11/06/22 05:21 11/06/22 05:21 Other Labs: Lab Results x24hrs 11/06/22 11/06/22 Range/Units 05:21 05:21 WBC 15.8 H (4.8-10.8) x10^3/uL RBC 3.78 L (4.70-6.10) 10^6/uL Hgb 11.2 L (14.0-18.0) g/dL Hct 33.5 L (42.0-52.0) % MCV 88.6 (80.0-94.0) fL MCH 29.6 (27.0-31.0) pg MCHC 33.4 (32.0-36.0) g/dL RDW 13.2 (12.0-15.0) % Plt Count 179 (130-450) 10^3/uL MPV 9.6 (7.4-11.4) fL Neut # (Auto) 13.7 H (1.5-6.6) 10^3/uL Lymph # (Auto) 0.9 L (1.5-3.5) 10^3/uL [place] # (Auto) 1.0 (0.0-1.0) 10^3/uL Eos # (Auto) 0.1 (0.0-0.7) 10^3/uL Baso # (Auto) 0.0 (0.0-0.1) 10^3/uL Absolute Nucleated RBC 0.00 x10^3/uL Nucleated RBC % 0.0 /100WBC Sodium 137 (135-145) mmol/L Potassium 3.2 L (3.5-5.0) mmol/L Chloride 102 (101-111) mmol/L Carbon Dioxide 25 (21-32) mmol/L Anion Gap 10.0 (6-13) BUN 35 H (6-20) mg/dL Creatinine 1.8 H (0.6-1.2) mg/dL Estimated GFR (MDRD) 37 L (>89) Glucose 130 H (70-100) mg/dL Calcium 8.7 (8.5-10.3) mg/dL ABX Reporting Has patient been on IV antibiotics over the past 48 hours?: Yes Sepsis Event Note (H) - Sepsis Criteria Sepsis Criteria: Recorded Heart Rate greater than 90 bpm, WBC count greater than 12,000 or less than 4000 Assessment/Plan - Problem List (1) Acute respiratory failure with hypoxia Impression: (1) Acute respiratory failure with hypoxia Conclusion/Plan: The etiology appears to be COPD exacerbation and a community-acquired pneumonia which is likely multifocal. No sputum culture drawn because he has a dry cough. On 11/05, we attempted to reduce his O2 from 4L/min to 2 L/min which he did not tolerate. We increased his oxygen back to 4L/min this morning. His O2 is currently 92%. Plan: I recommended that he try to move from his bed to the chair every few hours today. Continue to give supplemental O2 at 4L/min and monitor O2 sat Target saturation will be 90% or above in this patient with underlying longstanding chronic lung disease (bronchiectasis). Treat the underlying pneumonia and continue pulmonary toilet via incentive spirometry (2) Multifocal pneumonia Conclusion/Plan: Etiology is probably from contact with many individuals while he had recent trip including air travel. Initially, he thought he had a simple cold and thought he could fight off the shortness of breath, muscle aches and cough on his own. Four days later, he was so short of breath he presented with low O2 sat (88%) and chest x-ray showed multifocal pneumonia. Blood and urine cultures were negative. His WBC have increased again and went from 13.5 yesterday to 15.8 today. High WBC combined with his persistent tachycardia meets SIRS criteria. However, he does not meet sepsis criteria overall due to lack of other findings. He is still tachycardic at 111 bmp, despite taking metoprolol 50 mg bid. His lactic acid level has returned to normal on 11/04 which is reassuring. Today is day 3 of antibiotics. 11/06- His WBC count continues to increase despite 3 days of ceftriaxone and zithromax. He finished his third and final round of zithromax 500 mg today. Because he has bronchiectasis, this places him at a higher risk for pseudomonas. Due to his increased pseudomonas risk, continued tachycardia (111 bmp) and increasing WBCs (15.8), I decided to start him on Levaquin 750mg at time = 20:00. I will continue his ceftriaxone 1g for 2 more days. Plan: Start Tylenol Start Levaquin 750 mg, and I anticipate a 5 day duration of therapy Continue with supplemental O2 at 4L/min and monitor O2 Continue IV antibiotics with ceftriaxone 1g. Completed third and final treatment with Zithromax 500mg Continue Mucinex for pulmonary toilet Follow CBC daily (3) Asplenia Conclusion/Plan: This gives him risk of infections from encapsulated organisms. Plan: Continue IV antibiotics above Follow CBC daily (4) Bronchiectasis Conclusion/Plan: This gives him risk of significant mucous plugging and congestion. He is unsure why he has bronchiectasis but has seen pulmonology in the past for this. His bronchiectasis increases his risk for pseudomonas, which could explain his lack of WBC and heart rate improvement despite 3 days of treatment with antibiotics. Plan: Start Levaquin 750 mg, and I anticipate a 5 day duration of therapy Continue Mucinex Continue Robitussin Continue incentive spironmetry He may benefit from a vest for chest PT if he does not continue to improve, though I am reassured by his improvement with sitting up in a chair vs staying in bed His med list has been reconciled and he is on his home medications (5) Acute kidney injury superimposed on CKD Conclusion/Plan: His creatinine continues to improve and is at 1.8 today. His U/A (results reviewed) from 11/04 show casts and high protein, suggesting CKD. His U/A was also consistent with dehydration: Spec Grav > 1.03 Plan: Avoid nephrotoxins Continue IV fluids Follow BMP daily (6) UTI (urinary tract infection) Conclusion/Plan: His U/A from 11/04 had features of a UTI with positive nitrites Plan: The Ceftriaxone will empirically cover UTI bacteria Urine culture results were negative (7) Hx of essential hypertension Conclusion/Plan: His blood pressures have steadily increased throughout his stay and are no longer "soft". He is taking his home medications: metoprolol 50 mg, amlodipine 10 mg, and losartan 100 mg. His most recent bp was 120/71. Plan: His med list has been reconciled and he is on his home medications Monitor bp q8h (2) Sinus tachycardia Impression: Patient has been tachycardic since 5 am on 11/05. Initially, we thought that his tachycardia was due to his pause in home blood pressure medications which consists of metoprolol 50 mg, amlodipine 10 mg, and losartan 100 mg. However, we resumed these medications on 11/05 and he is still tachycardic today. His heart rate is currently 111. His blood pressure is 120/71. I am worried that his tachycardia is a sign that he is not on the correct antibiotic therapy. I opted to start Levaquin 750 mg to cover for pseudomonas, and I anticipate a 5 day duration of therapy. Plan: Start Levaquin 750 mg ECG performed which revealed sinus tachycardia Continue home blood pressure medications Continue to monitor heart rate
[2022-11-06] MEDS: AZITHROMYCIN INJ 500 MG in SODIUM CHLORIDE 0.9% 250 ML IV SCH (13:29)
[2022-11-06] MEDS ORDERED: IPRATROPIUM/ALBUTEROL 3 ML NEB INH PRN (15:39)
[2022-11-06] MEDS ORDERED: levoFLOXacin 750 MG/150 ML 750 MG/150 ML BAG IV SCH (20:00)
[2022-11-06] MEDS: ATORVASTATIN 10 MG TABLET PO SCH (21:30)
[2022-11-07] MEDS: SODIUM CHLORIDE FLUSH 0.9% 10 ML SYRINGE IVP SCH ×4 (00:04→23:51)
[2022-11-07 05:12] LABS: BASOPHILS # (AUTO) 0.1 10^3/uL (0.0-0.1); BASOPHILS % (AUTO) 0.3 %; EOSINOPHILS # (AUTO) 0.2 10^3/uL (0.0-0.7); HGB - HEMOGLOBIN 10.5 g/dL (14.0-18.0); LYMPHOCYTES # (AUTO) 0.8 10^3/uL (1.5-3.5); MEAN CORPUSCULAR HEMOGLOBIN 29.4 pg (27.0-31.0); MEAN CORPUSCULAR HGB CONC 32.8 g/dL (32.0-36.0); MEAN CORPUSCULAR VOLUME 89.6 fL (80.0-94.0); MEAN PLATELET VOLUME 9.9 fL (7.4-11.4); MONOCYTES # (AUTO) 1.1 10^3/uL (0.0-1.0); MONOCYTES % (AUTO) 7.2 %; NEUTROPHILS # (AUTO) 13.2 10^3/uL (1.5-6.6); NEUTROPHILS % (AUTO) 85.4 %; PLT - PLATELET COUNT 208 10^3/uL (130-450); RED BLOOD COUNT 3.57 10^6/uL (4.70-6.10); RED CELL DISTRIBUTION WIDTH 13.4 % (12.0-15.0); WHITE BLOOD COUNT 15.5 x10^3/uL (4.8-10.8)
[2022-11-07 05:20] LABS: CALCIUM 8.6 mg/dL (8.5-10.3); CREATININE 1.8 mg/dL (0.6-1.2); POTASSIUM 3.4 mmol/L (3.5-5.0)
[2022-11-07] MEDS: MULTIVITAMIN W/MINERALS TABLET PO SCH (08:00)
[2022-11-07] MEDS: LOSARTAN 50 MG TABLET PO SCH (08:00)
[2022-11-07] MEDS: guaiFENesin 600 MG TABLET PO SCH ×2 (08:00→20:56)
[2022-11-07] MEDS: HEPARIN 5,000 UNIT/ML VIAL SUBQ SCH ×2 (08:01→20:57)
[2022-11-07] MEDS: SERTRALINE 25 MG TABLET PO SCH (08:01)
[2022-11-07] MEDS: amLODIPine 5 MG TABLET PO SCH (08:01)
[2022-11-07] MEDS: METOPROLOL TARTRATE 50 MG TABLET PO SCH ×2 (08:01→20:57)
[2022-11-07] MEDS: ASPIRIN EC 81 MG TABLET PO SCH (08:01)
[2022-11-07] MEDS: polyethylene glycoL 3350 17 GM PACKET PO SCH (08:01)
[2022-11-07] MEDS: SACCHAROMYCES BOULARDII 250 MG CAPSULE PO SCH ×2 (08:45→16:24)
[2022-11-07] MEDS ORDERED: SODIUM CHLORIDE 0.65% NASAL SPRAY NAS PRN (09:22)
[2022-11-07] MEDS: cefTRIAXone 1 GM in SODIUM CHLORIDE 0.9% MINIBAG 100 ML IV SCH (11:39)
[2022-11-07] MEDS: ACETAMINOPHEN 325 MG TABLET PO PRN ×2 (16:15→20:56)
--- NOTE | 2022-11-07 16:32 | PROVIDER PROGRESS NOTE ---
Assessment/Plan - Problem List (1) Multifocal pneumonia Assessment/Plan: Likely related to recent travel. Blood and urine cultures were negative. His WBC have increased again and went from 13.5 yesterday to 15.8 today. High WBC combined with his persistent tachycardia meets SIRS criteria. However, he does not meet sepsis criteria overall due to lack of other findings. 11/07- His WBC stable at 15, despite 3 days of ceftriaxone and zithromax. Because he has bronchiectasis, this places him at a higher risk for pseudomonas. Due to his increased pseudomonas risk, continued tachycardia (111 bmp) and incre asing WBCs (15.8), started him on Levaquin 750mg on 11/06 time = 20:00. I will continue his ceftriaxone 1g for 1 more days. Cont Levaquin 750 mg, likely a 5 day duration of therapy ending 11/11 Continue with supplemental O2 at 4L/min and monitor O2 Continue IV antibiotics with ceftriaxone 1g. Completed third and final treatment with Zithromax 500mg Continue Mucinex for pulmonary toilet Follow CBC daily (2) Acute respiratory failure with hypoxia Assessment/Plan: 2/2 to Community-acquired pneumonia which is likely multifocal. Currently stable at 4L, but able to walk better and subjectively feeling better, no SOB Cont to wean o2, consider D/C on home Oxygen Target saturation will be 90% or above in this patient with underlying longstanding chronic lung disease (bronchiectasis). Started flutter valve with good results Cont supportive care (3) Acute kidney injury superimposed on CKD Assessment/Plan: Cr 1.8, from 2.6 Improving, despite several abx Now renally dosing Levaquin Cont to monitor labs, avoid nephrotoxic agents, and renally dose all meds (6) Hx of essential hypertension Assessment/Plan: Stable, cont home meds (7) Sinus tachycardia Assessment/Plan: Likely 2/2 to infection Mild, < 120's Monitor (8) UTI (urinary tract infection) Qualifiers: Urinary tract infection type: acute cystitis Assessment/Plan: Resolved with Ceftriaxone - Current Meds Current Meds: Current Medications Generic Name Dose Route Start Last Admin Trade Name Freq PRN Reason Stop Dose Admin Acetaminophen 650 mg 11/06/22 15:38 11/07/22 16:15 Acetaminophen 325 Mg Tablet PO 650 mg Q4HR PRN Administration Pain or Fever > 38C (100.4F) Amlodipine Besylate 10 mg 11/05/22 10:00 11/07/22 08:01 Amlodipine 5 Mg Tablet PO 10 mg DAILY BRIEN Administration Aspirin 81 mg 11/05/22 09:00 11/07/22 08:01 Aspirin Ec 81 Mg Tablet PO 81 mg DAILY BRIEN Administration Atorvastatin Calcium 20 mg 11/05/22 21:00 11/06/22 21:30 Atorvastatin 10 Mg Tablet PO 20 mg QPM BRIEN Administration Guaifenesin 600 mg 11/05/22 09:00 11/07/22 08:00 Guaifenesin 600 Mg Tablet PO 600 mg BID BRIEN Administration Guaifenesin/Codeine Phosphate 5 ml 11/05/22 09:28 11/06/22 07:32 Guaifenesin/Codeine 5 Ml Udc PO 5 ml Q6HR PRN Administration Cough Heparin Sodium (Porcine) 5,000 unit 11/04/22 21:00 11/07/22 08:01 Heparin 5,000 Unit/Ml Vial SUBQ 5,000 unit BID BRIEN Administration Ceftriaxone Sodium 1 gm/ 100 mls @ 200 mls/hr 11/05/22 12:00 11/07/22 11:39 Sodium Chloride IV 11/08/22 12:29 200 mls/hr Q24H BRIEN Administration Levofloxacin 750 mg in 150 mls @ 100 mls/hr 11/08/22 21:00 11/06/22 21:34 Levaquin 750 Mg/150 Ml IV 100 mls/hr Q48H BRIEN Administration Losartan Potassium 100 mg 11/05/22 10:00 11/07/22 08:00 Losartan 50 Mg Tablet PO 100 mg DAILY BRIEN Administration Metoprolol Tartrate 50 mg 11/05/22 09:00 11/07/22 08:01 Metoprolol Tartrate 50 Mg Tablet PO 50 mg BID BRIEN Administration Multivitamins/Minerals 1 tab 11/05/22 09:00 11/07/22 08:00 Multivitamin W/Minerals Tablet PO 1 tab DAILY BRIEN Administration Polyethylene Glycol 17 gm 11/06/22 09:00 11/07/22 08:01 Polyethylene Glycol 3350 17 Gm Packet PO 17 gm DAILY BRIEN Administration Saccharomyces Boulardii 250 mg 11/07/22 09:00 11/07/22 16:24 Saccharomyces Boulardii 250 Mg Capsule PO 250 mg BIDWM BRIEN Administration Sertraline HCl 25 mg 11/05/22 09:00 11/07/22 08:01 Sertraline 25 Mg Tablet PO 25 mg DAILY BRIEN Administration Sodium Chloride 10 ml 11/04/22 17:00 11/07/22 16:17 Sodium Chloride Flush 0.9% 10 Ml Syringe IVP 10 ml 0100,0900,1700 BRIEN Administration Sodium Chloride 2 sprays 11/07/22 09:22 11/07/22 11:38 Sodium Chloride 0.65% Nasal [place] 2 spr Q4HR PRN Administration Nasal Congestion - Lab Result Fish Bone Diagrams: 11/07/22 04:33 11/07/22 04:33 - Additional Planning Condition/Complexity: Stable My Orders: My Active Orders 11/07/22 09:22 Sodium Chloride 0.65% [[place]] 2 sprays [place] Q4HR PRN Plan Discussed with:: Patient, Spouse Subjective - Subjective Patient Reports: Feeling Better Objective Vital Signs: Vital Signs - 24 hr 11/06/22 11/06/22 11/06/22 19:15 21:30 23:14 Temperature 36.6 C Heart Rate [ 94 Brachial] Respiratory 16 Rate Blood Pressure 153/75 H Blood Pressure 130/79 [Right Brachial artery] O2 Saturation 92 If not protocol 4 4 : Oxygen Flow, liters/minute 11/07/22 11/07/22 11/07/22 07:33 07:57 08:01 Temperature Heart Rate [ 104 H Brachial] Respiratory 18 Rate Blood Pressure 149/73 H Blood Pressure 149/73 H [Right Brachial artery] O2 Saturation 94 If not protocol 4 4 : Oxygen Flow, liters/minute Oxygen O2 Source Oxymask Oxygen Flow Rate 4 I&O (Last 24 Hrs): Intake and Output Totals x24h 11/05/22 11/06/22 11/07/22 23:59 23:59 23:59 Intake Total 1710 930 320 Balance 1710 930 320 General: Alert, Oriented x3, Cooperative HEENT: Atraumatic Neck: Supple Neuro: Alert, Non Focal, Oriented Times 3 Cardiovascular: Regular rate, Normal S1, Normal S2, No murmurs Respiratory: Chest non-tender Abdomen: Normal bowel sounds, No tenderness, No hepatospenomegaly Extremities: No clubbing, No edema, No tenderness/swelling Skin: No significant lesion - Results Results: Laboratory Results WBC 15.5 x10^3/uL (4.8-10.8) H 11/07/22 04:33 RBC 3.57 10^6/uL (4.70-6.10) L 11/07/22 04:33 Hgb 10.5 g/dL (14.0-18.0) L 11/07/22 04:33 Hct 32.0 % (42.0-52.0) L 11/07/22 04:33 MCV 89.6 fL (80.0-94.0) 11/07/22 04:33 MCH 29.4 pg (27.0-31.0) 11/07/22 04:33 MCHC 32.8 g/dL (32.0-36.0) 11/07/22 04:33 RDW 13.4 % (12.0-15.0) 11/07/22 04:33 Plt Count 208 10^3/uL (130-450) 11/07/22 04:33 MPV 9.9 fL (7.4-11.4) 11/07/22 04:33 Neut # (Auto) 13.2 10^3/uL (1.5-6.6) H 11/07/22 04:33 Lymph # (Auto) 0.8 10^3/uL (1.5-3.5) L 11/07/22 04:33 [place] # (Auto) 1.1 10^3/uL (0.0-1.0) H 11/07/22 04:33 Eos # (Auto) 0.2 10^3/uL (0.0-0.7) 11/07/22 04:33 Baso # (Auto) 0.1 10^3/uL (0.0-0.1) 11/07/22 04:33 Absolute Nucleated RBC 0.00 x10^3/uL 11/07/22 04:33 Nucleated RBC % 0.0 /100WBC 11/07/22 04:33 Sodium 137 mmol/L (135-145) 11/07/22 04:33 Potassium 3.4 mmol/L (3.5-5.0) L 11/07/22 04:33 Chloride 101 mmol/L (101-111) 11/07/22 04:33 Carbon Dioxide 25 mmol/L (21-32) 11/07/22 04:33 Anion Gap 11.0 (6-13) 11/07/22 04:33 BUN 38 mg/dL (6-20) H 11/07/22 04:33 Creatinine 1.8 mg/dL (0.6-1.2) H 11/07/22 04:33 Estimated GFR (MDRD) 37 (>89) L 11/07/22 04:33 Glucose 114 mg/dL (70-100) H 11/07/22 04:33 Lactic Acid 1.8 mmol/L (0.5-2.2) 11/04/22 14:50 Calcium 8.6 mg/dL (8.5-10.3) 11/07/22 04:33 Total Bilirubin 1.1 mg/dL (0.2-1.0) H 11/04/22 11:38 AST 36 IU/L (10-42) 11/04/22 11:38 ALT 34 IU/L (10-60) 11/04/22 11:38 Alkaline Phosphatase 58 IU/L (42-121) 11/04/22 11:38 Total Protein 7.0 g/dL (6.7-8.2) 11/04/22 11:38 Albumin 3.0 g/dL (3.2-5.5) L 11/04/22 11:38 Globulin 4.0 g/dL (2.1-4.2) 11/04/22 11:38 Albumin/Globulin Ratio 0.8 (1.0-2.2) L 11/04/22 11:38 Urine Color DARK YELLOW 11/04/22 12:30 Urine Clarity SL. CLOUDY (CLEAR) 11/04/22 12:30 Urine pH 5.0 PH (5.0-7.5) 11/04/22 12:30 Ur Specific [place] >=1.030 (1.002-1.030) H 11/04/22 12:30 Urine Protein >=300 mg/dL (NEGATIVE) H 11/04/22 12:30 Urine Glucose (UA) NEGATIVE mg/dL (NEGATIVE) 11/04/22 12:30 Urine Ketones TRACE mg/dL (NEGATIVE) 11/04/22 12:30 Urine Occult Blood TRACE-INTA (NEGATIVE) 11/04/22 12:30 Urine Nitrite POSITIVE (NEGATIVE) H 11/04/22 12:30 Urine Bilirubin NEGATIVE (NEGATIVE) 11/04/22 12:30 Urine Urobilinogen 4 E.U./dL (NORMAL) H 11/04/22 12:30 Ur Leukocyte Esterase NEGATIVE (NEGATIVE) 11/04/22 12:30 Urine RBC 0-5 /HPF (0-5) 11/04/22 12:30 Urine WBC 0-3 /HPF (0-3) 11/04/22 12:30 Ur Epithelial Cells MOD Renal Tubular /HPF (<= Few) H 11/04/22 12:30 Ur Squamous Epith Cells RARE Squamous (<= Few) 11/04/22 12:30 Urine Bacteria Many /HPF (None Seen) H 11/04/22 12:30 Urine Casts 3-5 Course Granular /LPF0-2 Waxy Casts /LPF 11/04/22 12:30 Urine Casts 3-5 Course Granular /LPF0-2 Waxy Casts /LPF 11/04/22 12:30 Urine Culture Comments INDICATED 11/04/22 12:30 Nasal Adenovirus (PCR) NOT DETECTED 11/04/22 10:30 Nasal B. parapertussis DNA (PCR) NOT DETECTED 11/04/22 10:30 Nasal Coronavir 229E PCR NOT DETECTED 11/04/22 10:30 Nasal Coronavir HKU1 PCR NOT DETECTED 11/04/22 10:30 Nasal Coronavir NL63 PCR NOT DETECTED 11/04/22 10:30 Nasal Coronavir OC43 PCR NOT DETECTED 11/04/22 10:30 Nasal Enterovir/Rhinovir PCR NOT DETECTED 11/04/22 10:30 Nasal Influenza B PCR NOT DETECTED 11/04/22 10:30 Nasal Influenza A PCR NOT DETECTED 11/04/22 10:30 Nasal Parainfluen 1 PCR NOT DETECTED 11/04/22 10:30 Nasal Parainfluen 2 PCR NOT DETECTED 11/04/22 10:30 Nasal Parainfluen 3 PCR NOT DETECTED 11/04/22 10:30 Nasal Parainfluen 4 PCR NOT DETECTED 11/04/22 10:30 Nasal RSV (PCR) NOT DETECTED 11/04/22 10:30 Nasal B.pertussis DNA PCR NOT DETECTED 11/04/22 10:30 Nasal C.pneumoniae (PCR) NOT DETECTED 11/04/22 10:30 [place] Human Metapneumo PCR NOT DETECTED 11/04/22 10:30 Nasal M.pneumoniae (PCR) NOT DETECTED 11/04/22 10:30 Nasal SARS-CoV-2 (PCR) NOT DETECTED 11/04/22 10:30 - Procedures Procedures: Procedures EXCISION OF RECTUM, ENDO, DIAGN (06/10/17) RESECTION OF GALLBLADDER, PERCUTANEOUS ENDOSCOPIC APPROACH (07/04/21) Sepsis Event Note (H) - Evaluation Current Stage of Sepsis: Sepsis - Sepsis Criteria Sepsis Criteria: Recorded Heart Rate greater than 90 bpm, WBC count greater than 12,000 or less than 4000 ABX Reporting Has patient been on IV antibiotics over the past 48 hours?: Yes Current Medications - Current Medications Current Medications: Active Medications Generic Name Dose Route Start Last Admin Trade Name Freq PRN Reason Stop Dose Admin Acetaminophen 650 mg 11/06/22 15:38 11/07/22 16:15 Acetaminophen 325 Mg Tablet PO 650 mg Q4HR PRN Administration Pain or Fever > 38C (100.4F) Albuterol/Ipratropium 3 ml 11/06/22 15:39 Ipratropium/Albuterol 3 Ml Neb INH RTQID PRN Wheezing Amlodipine Besylate 10 mg 11/05/22 10:00 11/07/22 08:01 Amlodipine 5 Mg Tablet PO 10 mg DAILY BRIEN Administration Aspirin 81 mg 11/05/22 09:00 11/07/22 08:01 Aspirin Ec 81 Mg Tablet PO 81 mg DAILY BRIEN Administration Atorvastatin Calcium 20 mg 11/05/22 21:00 11/06/22 21:30 Atorvastatin 10 Mg Tablet PO 20 mg QPM BRIEN Administration Guaifenesin 600 mg 11/05/22 09:00 11/07/22 08:00 Guaifenesin 600 Mg Tablet PO 600 mg BID BRIEN Administration Guaifenesin/Codeine Phosphate 5 ml 11/05/22 09:28 11/06/22 07:32 Guaifenesin/Codeine 5 Ml Udc PO 5 ml Q6HR PRN Administration Cough Heparin Sodium (Porcine) 5,000 unit 11/04/22 21:00 11/07/22 08:01 Heparin 5,000 Unit/Ml Vial SUBQ 5,000 unit BID BRIEN Administration Ceftriaxone Sodium 1 gm/ 100 mls @ 200 mls/hr 11/05/22 12:00 11/07/22 11:39 Sodium Chloride IV 11/08/22 12:29 200 mls/hr Q24H BRIEN Administration Levofloxacin 750 mg in 150 mls @ 100 mls/hr 11/08/22 21:00 11/06/22 21:34 Levaquin 750 Mg/150 Ml IV 100 mls/hr Q48H BRIEN Administration Losartan Potassium 100 mg 11/05/22 10:00 11/07/22 08:00 Losartan 50 Mg Tablet PO 100 mg DAILY BRIEN Administration Metoprolol Tartrate 50 mg 11/05/22 09:00 11/07/22 08:01 Metoprolol Tartrate 50 Mg Tablet PO 50 mg BID BRIEN Administration Multivitamins/Minerals 1 tab 11/05/22 09:00 11/07/22 08:00 Multivitamin W/Minerals Tablet PO 1 tab DAILY BRIEN Administration Polyethylene Glycol 17 gm 11/06/22 09:00 11/07/22 08:01 Polyethylene Glycol 3350 17 Gm Packet PO 17 gm DAILY BRIEN Administration Saccharomyces Boulardii 250 mg 11/07/22 09:00 11/07/22 16:24 Saccharomyces Boulardii 250 Mg Capsule PO 250 mg BIDWM BRIEN Administration Sertraline HCl 25 mg 11/05/22 09:00 11/07/22 08:01 Sertraline 25 Mg Tablet PO 25 mg DAILY BRIEN Administration Sodium Chloride 10 ml 11/04/22 15:57 Sodium Chloride Flush 0.9% 10 Ml Syringe IVP PRN PRN NEEDED PER PROVIDER ORDERS Sodium Chloride 10 ml 11/04/22 17:00 11/07/22 16:17 Sodium Chloride Flush 0.9% 10 Ml Syringe IVP 10 ml 0100,0900,1700 BRIEN Administration Sodium Chloride 2 sprays 11/07/22 09:22 11/07/22 11:38 Sodium Chloride 0.65% Nasal [place] 2 spr Q4HR PRN Administration Nasal Congestion Atorvastatin Calcium 20 mg PO QPM 06/09/17 Famotidine 40 mg PO DAILY PRN 07/05/21 Losartan Potassium [Cozaar] 100 mg PO DAILY 07/05/21 Metoprolol Tartrate [Lopressor] 50 mg PO BID 07/05/21 Sertraline [Zoloft] 25 mg PO DAILY 07/05/21 Aspirin [Aspirin EC] 1 tab PO DAILY 11/04/22 Chlorthalidone 12.5 mg PO DAILY 11/04/22 Multivitamin W/Minerals [Theragran M] 1 tab PO DAILY 11/04/22
[2022-11-07] MEDS: ATORVASTATIN 10 MG TABLET PO SCH (20:56)
[2022-11-08 05:12] LABS: BASOPHILS # (AUTO) 0.1 10^3/uL (0.0-0.1); BASOPHILS % (AUTO) 0.4 %; EOSINOPHILS # (AUTO) 0.4 10^3/uL (0.0-0.7); EOSINOPHILS % (AUTO) 2.8 %; HCT - HEMATOCRIT 32.5 % (42.0-52.0); HGB - HEMOGLOBIN 10.7 g/dL (14.0-18.0); LYMPHOCYTES # (AUTO) 0.7 10^3/uL (1.5-3.5); LYMPHOCYTES % (AUTO) 4.7 %; MEAN CORPUSCULAR HEMOGLOBIN 29.6 pg (27.0-31.0); MEAN CORPUSCULAR HGB CONC 32.9 g/dL (32.0-36.0); MEAN PLATELET VOLUME 9.7 fL (7.4-11.4); MONOCYTES # (AUTO) 1.1 10^3/uL (0.0-1.0); MONOCYTES % (AUTO) 7.7 %; NEUTROPHILS # (AUTO) 11.9 10^3/uL (1.5-6.6); NEUTROPHILS % (AUTO) 82.6 %; PLT - PLATELET COUNT 238 10^3/uL (130-450); RED BLOOD COUNT 3.61 10^6/uL (4.70-6.10); RED CELL DISTRIBUTION WIDTH 13.3 % (12.0-15.0); WHITE BLOOD COUNT 14.4 x10^3/uL (4.8-10.8)
[2022-11-08 05:21] LABS: CALCIUM 8.8 mg/dL (8.5-10.3); CREATININE 1.8 mg/dL (0.6-1.2); POTASSIUM 3.4 mmol/L (3.5-5.0)
[2022-11-08] MEDS: ACETAMINOPHEN 325 MG TABLET PO PRN (08:23)
[2022-11-08] MEDS ORDERED: SENNA 8.6 MG TABLET PO SCH ×2 (09:00)
[2022-11-08] MEDS ORDERED: DOCUSATE SODIUM 250 MG CAPSULE PO SCH (09:00)
[2022-11-08 10:00] VITALS: BP 128/76
[2022-11-08] MEDS: METOPROLOL TARTRATE 50 MG TABLET PO SCH (10:29)
[2022-11-08] MEDS: guaiFENesin 600 MG TABLET PO SCH (10:31)
[2022-11-08] MEDS: SERTRALINE 25 MG TABLET PO SCH (10:31)
[2022-11-08] MEDS: ASPIRIN EC 81 MG TABLET PO SCH (10:31)
[2022-11-08] MEDS: LOSARTAN 50 MG TABLET PO SCH (10:31)
[2022-11-08] MEDS: SACCHAROMYCES BOULARDII 250 MG CAPSULE PO SCH ×2 (10:31→16:42)
[2022-11-08] MEDS: HEPARIN 5,000 UNIT/ML VIAL SUBQ SCH (10:32)
[2022-11-08] MEDS: amLODIPine 5 MG TABLET PO SCH (10:32)
[2022-11-08] MEDS: SODIUM CHLORIDE FLUSH 0.9% 10 ML SYRINGE IVP SCH (10:33)
[2022-11-08] MEDS: MULTIVITAMIN W/MINERALS TABLET PO SCH (10:33)
[2022-11-08] MEDS: polyethylene glycoL 3350 17 GM PACKET PO SCH (10:34)
[2022-11-08] MEDS ORDERED: MAGNESIUM HYDROXIDE 2,400 MG/30 ML UDC PO ONE (12:16)
[2022-11-08] MEDS: cefTRIAXone 1 GM in SODIUM CHLORIDE 0.9% MINIBAG 100 ML IV SCH (12:23)
--- NOTE | 2022-11-08 16:17 | Discharge Plan ---
Discharge Plan Problem Reviewed?: Yes Disposition: Home, Self Care Condition: Stable Prescriptions: Magnesium Citrate [Citrate of Magnesia] 296 ml PO ONCE PRN #1 ml PRN Reason: Constipation Docusate Sodium 250Mg Capsule [Colace 250Mg Capsule] 250 - 500 mg PO DAILY #30 cap levoFLOXacin 750 MG/150 ML [Levaquin 750 mg/150 ml] 750 mg IV Q48H #3 each polyethylene glycoL 3350 [Miralax] 17 gm PO DAILY #20 packet Diet: Regular Activity Restrictions: Activity as Tolerated Shower Restrictions: No Driving Restrictions: No Instruction Topics: Oxygen Home Use No Smoking: If you smoke, Please STOP! Call for help. Follow-up with: Meenu Varela PA-C [Primary Care Provider] -
--- NOTE | 2022-11-08 16:57 | DISCHARGE SUMMARY ---
Discharge Summary Admit Date: 11/04/22 Discharge Date: 11/08/22 Discharging Provider: Dr Mark Lutz Primary Care Provider: Meenu Varela PA-C Condition at Discharge: Stable Discharge Disposition: 01 Home, Self Care - DIAGNOSES Admission Diagnoses: Acute respiratory failure with hypoxia multifocal pneumonia Asplenia Bronchiectasis Acute kidney injury superimposed on CKD UTI - HPI History of Present Illness: This is a 77 y/o male with Hx of asplenia from trauma at age 18, Hx of bronchiectasis, who recently travelled by airplane, and admits contact with sick people. Upon return, he started to have a cough, sputum production, then whe ezing, SOB and muscle aches for the last 4 days. He is not sure if he had a fever. Today he monitored his O2 sat and it was 88% on R.A. He came to the ER, and also had a low saturation of 88% on room air documented. W/U showed a WBC of 11.6, multifocal pneumonia on CXR, INGA with a creat of 2.6 (his usual creat is 1.6), elevated Lactic Acid level of 2.5. His resp panel and Covid test are (-). Cultures were obtained in ER and he was given iv Ceftriaxone and iv Zithromax and started on suppl O2. The ER provider reached out to me on the Hospitalist team and we discussed this patient. He will be admitted to treat acute respiratory failure with hypoxia, and sepsis from a Community acquired PNA in a pt who has bronchiectasis and also has asplenia and is therefore at risk of infections from encapsulated bacteria. - HOSPITAL COURSE Hospital Course: 1) Acute respiratory failure with hypoxia Conclusion/Plan: The etiology appears to be COPD exacerbation and a community-acquired pneumonia which is likely multifocal. No sputum culture drawn because he has a dry cough. On 11/05, we attempted to reduce his O2 from 4L/min to 2 L/min which he did not tolerate. He was unable to wean off oxygen at rest by 11/08/2022. On the day of discharge, he had an oxygen desaturation test. Patient was not hypoxic at rest on room air with O2 sats of 89% However, with exertion on room air, his O2 sats were 83%. On 6 L/min nasal cannula with exertion, his O2 sats improved to 94%. I am ordering home O2, 1 L/min at rest, and 6 L/min with exertion is to treat his acute respiratory failure with hypoxia and bronchiectasis. I suggest follow-up with PCP to determine length of need and further management for respiratory disease. (2) Multifocal pneumonia Conclusion/Plan: Etiology is probably from contact with many individuals while he had recent trip including air travel. Initially, he thought he had a simple cold and thought he could fight off the shortness of breath, muscle aches and cough on his own. Four days later, he was so short of breath he presented with low O2 sat (88%) and ch est x-ray showed multifocal pneumonia. Blood and urine cultures were negative. His WBC have increased again and went from 13.5 yesterday to 15.8 today. High WBC combined with his persistent tachycardia meets SIRS criteria. However, he does not meet sepsis criteria overall due to lack of other findings. He is still tachycardic at 111 bmp, despite taking metoprolol 50 mg bid. His lactic acid level has returned to normal on 11/04 which is reassuring. Today is day 3 of antibiotics. Patient has had persistent leukocytosis for several days. Initially this was trending upward despite clinical progress, however in the last 24 hours prior to discharge his white blood cell count decreased from 15.5 down to 14.4. This is in the absence of fever, and in the setting of improvement in his hypoxia and overall clinical improvement. Given his subjective and otherwise objective measures of improvement, it was not felt this leukocytosis would warrant continued use of inpatient treatment. However, he will be continued on Levaquin for an additional 3 days to complete 5-day treatment course of Levaquin.In addition, he completed 5-day treatment course of ceftriaxone and azithromycin. (3) Asplenia Conclusion/Plan: This gives him risk of infections from encapsulated organisms. (4) Bronchiectasis Conclusion/Plan: This is a chronic problem uncomplicated treatment of his pneumonia. He did improve after initiating a flutter valve. A pulmonary vest proved to be cost prohibitive. He may benefit from outpatient pulmonology referral. (5) Acute kidney injury superimposed on CKD Conclusion/Plan: Renal function improved. However it did plateau at creatinine of 1.8 with GFR o f 37. This may be his new baseline. (6) UTI (urinary tract infection) Conclusion/Plan: Treatment completed with ceftriaxone. (7) Hx of essential hypertension Conclusion/Plan: Blood pressure stabilized on his home medications. (2) Sinus tachycardia Impression: Improved with home meds. - ALLERGIES Allergies/Adverse Reactions: Allergies Allergy/AdvReac Type Severity Reaction Status Date / Time No Known Drug Allergies Allergy Verified 11/04/22 10:20 - MEDICATIONS Home Medications: Ambulatory Orders Medication Instructions Recorded Confirmed Atorvastatin Calcium 20 mg PO QPM 06/09/17 11/04/22 Famotidine 40 mg PO DAILY PRN 07/05/21 08/12/22 Losartan Potassium [Cozaar] 100 mg PO DAILY 07/05/21 11/04/22 Metoprolol Tartrate [Lopressor] 50 mg PO BID 07/05/21 11/04/22 Sertraline [Zoloft] 25 mg PO DAILY 07/05/21 11/04/22 Amlodipine Besylate [Norvasc] 10 mg PO DAILY #30 tablet 08/12/22 11/04/22 Aspirin [Aspirin EC] 1 tab PO DAILY 11/04/22 11/04/22 Chlorthalidone 12.5 mg PO DAILY 11/04/22 11/04/22 Multivitamin W/Minerals [Theragran 1 tab PO DAILY 11/04/22 11/04/22 M] Docusate Sodium 250Mg Capsule 250 - 500 mg PO DAILY #30 cap 11/08/22 [Colace 250Mg Capsule] Magnesium Citrate [Citrate of 296 ml PO ONCE PRN #1 ml 11/08/22 Magnesia] guaiFENesin [Mucinex] 600 mg PO BID tab 11/08/22 levoFLOXacin 750 MG/150 ML 750 mg IV Q48H #3 each 11/08/22 [Levaquin 750 mg/150 ml] polyethylene glycoL 3350 [Miralax] 17 gm PO DAILY #20 packet 11/08/22 - PHYSICAL EXAM AT DISCHARGE General Appearance: positive: No acute distress Eyes Bilateral: positive: Normal inspection Respiratory: positive: Chest non-tender, No respiratory distress, Breath sounds nml Cardiovascular: positive: Regular rate & rhythm, No murmur, No gallop Abdomen: positive: Non-tender - LABS Result Diagrams: 11/08/22 04:45 11/08/22 04:45 - SEPSIS Current Stage of Sepsis: Sepsis Sepsis Criteria: Recorded Heart Rate greater than 90 bpm, WBC count greater than 12,000 or less than 4000
[2022-11-08] MEDS ORDERED: levoFLOXacin 750 MG/150 ML 750 MG/150 ML BAG IV SCH (21:00)
== END 2022-11-08 17:40 | disposition home or self-care (01) | DRG 189 ==
LOC: ED 10:10 → MS2 15:57
PROVIDERS: ADMIT Internal Medicine; ATTEND Family Medicine Sports Medicine
DX: J96.01 Acute respiratory failure with hypoxia (principal); J18.9 Pneumonia, unspecified organism; N17.9 Acute kidney failure, unspecified; R65.10 Systemic inflammatory response syndrome (SIRS) of non-infectious origin without acute organ dysfunction; Z20.822 Contact with and (suspected) exposure to COVID-19; J44.0 Chronic obstructive pulmonary disease with (acute) lower respiratory infection; I10 Essential (primary) hypertension; J47.9 Bronchiectasis, uncomplicated; J44.1 Chronic obstructive pulmonary disease with (acute) exacerbation; N30.00 Acute cystitis without hematuria; E87.20 Acidosis, unspecified; Z90.81 Acquired absence of spleen; R00.0 Tachycardia, unspecified; I12.9 Hypertensive chronic kidney disease with stage 1 through stage 4 chronic kidney disease, or unspecified chronic kidney disease; N18.9 Chronic kidney disease, unspecified; E86.0 Dehydration; K21.9 Gastro-esophageal reflux disease without esophagitis
CPT/HCPCS: 36415; 71045; 80048; 80053; 81001; 83605; 85025; 87040; 87086; 87633; 93005; 94640; 94761; 96365; 96367; 99283; 99285; A9270

== ENCOUNTER 2022-11-25 08:23 | Outpatient (CLI) | payer MEDICARE ==
[2022-11-25 12:13] LABS: BASOPHILS # (AUTO) 0.1 10^3/uL (0.0-0.1); BASOPHILS % (AUTO) 1.1 %; EOSINOPHILS # (AUTO) 0.3 10^3/uL (0.0-0.7); EOSINOPHILS % (AUTO) 5.2 %; HCT - HEMATOCRIT 38.6 % (42.0-52.0); HGB - HEMOGLOBIN 12.6 g/dL (14.0-18.0); LYMPHOCYTES # (AUTO) 1.1 10^3/uL (1.5-3.5); LYMPHOCYTES % (AUTO) 17.2 %; MEAN CORPUSCULAR HEMOGLOBIN 29.8 pg (27.0-31.0); MEAN CORPUSCULAR HGB CONC 32.6 g/dL (32.0-36.0); MEAN CORPUSCULAR VOLUME 91.3 fL (80.0-94.0); MEAN PLATELET VOLUME 10.2 fL (7.4-11.4); MONOCYTES # (AUTO) 0.5 10^3/uL (0.0-1.0); MONOCYTES % (AUTO) 8.3 %; NEUTROPHILS # (AUTO) 4.3 10^3/uL (1.5-6.6); NEUTROPHILS % (AUTO) 67.9 %; PLT - PLATELET COUNT 239 10^3/uL (130-450); RED BLOOD COUNT 4.23 10^6/uL (4.70-6.10); RED CELL DISTRIBUTION WIDTH 13.6 % (12.0-15.0); WHITE BLOOD COUNT 6.4 x10^3/uL (4.8-10.8)
[2022-11-25 14:03] LABS: CALCIUM 9.2 mg/dL (8.5-10.3); CREATININE 1.6 mg/dL (0.6-1.2); POTASSIUM 3.8 mmol/L (3.5-5.0)
== END 2022-11-25 08:24 | disposition home or self-care (01) ==
LOC: LAB.N 08:23
PROVIDERS: ATTEND Physician Assistant
DX: J18.8 Other pneumonia, unspecified organism (principal)
CPT/HCPCS: 36415; 80048; 85025

== ENCOUNTER 2022-12-17 13:29 | Outpatient (CLI) | payer MEDICARE ==
--- NOTE | 2022-12-17 18:59 | XRAY Report ---
PROCEDURE: Hips 2V BILAT INDICATIONS: BILATERAL HIP JOINT PAIN TECHNIQUE: 2 views of the right and left hip were acquired. COMPARISON: CT abdomen pelvis 09/16/2019 FINDINGS: Bones: No fractures or dislocations. No suspicious bony lesions. Doubtful narrowing of joint spac e and possible osteophytic lipping. These changes present bilaterally. Soft tissues: Vascular calcifications and right lateral thigh soft tissue calcifications redemonstra jose IMPRESSION: No acute bony abnormality. If there remains a high clinical concern for fracture, consider cross-sect ional imaging now. If pain persists, consider repeat x-ray in 10-14 days or cross-sectional imaging. 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 Reviewed by: Casey Melgoza MD on 12/17/2022 6:58 PM PDT Approved by: Casey Melgoza MD on 12/17/2022 6:58 PM PDT Station ID: [id number]
== END 2022-12-17 13:30 | disposition home or self-care (01) ==
LOC: DI.N 13:29
PROVIDERS: ATTEND Physician Assistant
DX: M16.0 Bilateral primary osteoarthritis of hip (principal)

== ENCOUNTER 2022-12-26 11:51 | Outpatient (CLI) | payer MEDICARE | END 2022-12-26 11:52 | disposition home or self-care (01) | LOC: LAB.N 11:51 | PROVIDERS: ATTEND Physician Assistant | DX: C61 Malignant neoplasm of prostate (principal) | CPT/HCPCS: 36415; 84153 ==

== ENCOUNTER 2022-12-26 11:57 | Outpatient (CLI) | payer MEDICARE ==
--- NOTE | 2022-12-26 15:12 | XRAY Report ---
PROCEDURE: Lumbar Spine 2 View INDICATIONS: BILATERAL HIP JOINT PAIN, PROSTATE CANCER. TECHNIQUE: 2 views of the lumbar spine were acquired. COMPARISON: None. FINDINGS: Bones: 5 [id number] vertebrae are present. There is trace retrolisthesis of L2 on L3, L4 on L5 . Multilevel mild to moderate disc space narrowing most severe at L2-3 and L3-4. Small anterior multi level osteophytes are present most severe at L2 and L4. Mild foraminal narrowing at L2-3.. No verteb ral body compression fractures. No suspicious bony lesions. Soft tissues: Overlying bowel gas pattern is normal. No suspicious soft tissue calcifications. IMPRESSION: Degenerative changes most severe at L2-3 and L3-4. Reviewed by: Leeann Reddy MD on 12/26/2022 3:11 PM PDT Approved by: Leeann Reddy MD on 12/26/2022 3:11 PM PDT Station ID: [id number]
== END 2022-12-26 11:58 | disposition home or self-care (01) ==
LOC: DI.N 11:57
PROVIDERS: ATTEND Family Medicine
DX: M47.816 Spondylosis without myelopathy or radiculopathy, lumbar region (principal); C61 Malignant neoplasm of prostate
CPT/HCPCS: 36415; 84153

== ENCOUNTER 2023-06-03 09:02 | Outpatient (CLI) | payer MEDICARE ==
[2023-06-03 12:27] LABS: BASOPHILS % (AUTO) 0.6 %; EOSINOPHILS # (AUTO) 0.2 10^3/uL (0.0-0.7); EOSINOPHILS % (AUTO) 3.6 %; HCT - HEMATOCRIT 42.8 % (42.0-52.0); LYMPHOCYTES # (AUTO) 1.2 10^3/uL (1.5-3.5); LYMPHOCYTES % (AUTO) 19.2 %; MEAN CORPUSCULAR HEMOGLOBIN 29.6 pg (27.0-31.0); MEAN CORPUSCULAR HGB CONC 32.7 g/dL (32.0-36.0); MEAN CORPUSCULAR VOLUME 90.5 fL (80.0-94.0); MEAN PLATELET VOLUME 10.5 fL (7.4-11.4); MONOCYTES # (AUTO) 0.5 10^3/uL (0.0-1.0); MONOCYTES % (AUTO) 8.3 %; NEUTROPHILS # (AUTO) 4.4 10^3/uL (1.5-6.6); PLT - PLATELET COUNT 182 10^3/uL (130-450); RED BLOOD COUNT 4.73 10^6/uL (4.70-6.10); RED CELL DISTRIBUTION WIDTH 12.9 % (12.0-15.0); WHITE BLOOD COUNT 6.4 x10^3/uL (4.8-10.8)
[2023-06-03 12:54] LABS: ALBUMIN 4.3 g/dL (3.2-5.5); ALBUMIN/GLOBULIN RATIO 1.5 (1.0-2.2); ALKALINE PHOSPHATASE 66 IU/L (42-121); ALT ALANINE AMINOTRANSFERASE 22 IU/L (10-60); AST ASPARTATE AMINOTRANSFERASE 19 IU/L (10-42); BILIRUBIN,TOTAL 0.4 mg/dL (0.2-1.0); BUN - BLOOD UREA NITROGEN 24 mg/dL (6-20); CALCIUM 9.8 mg/dL (8.5-10.3); CARBON DIOXIDE - CO2 32 mmol/L (21-32); CHLORIDE 102 mmol/L (101-111); CHOL/HDL RATIO 3.5 (<5.0); CHOLESTEROL 157 mg/dL; CREATININE 1.6 mg/dL (0.6-1.3); GFR - MDRD 42 (>89); GLUCOSE 97 mg/dL (74-104); HDL CHOLESTEROL 45 mg/dL; LDL CHOLESTEROL,CALCULATED 78 mg/dL; LDL/HDL RATIO 1.7 (<3.6); POTASSIUM 4.3 mmol/L (3.5-4.5); SODIUM 139 mmol/L (135-145); TOTAL PROTEIN 7.2 g/dL (6.4-8.9); TRIGLYCERIDES 171 mg/dL (48-352); VLDL CHOLESTEROL 34 mg/dL
== END 2023-06-03 09:03 | disposition home or self-care (01) ==
LOC: LAB.N 09:02
PROVIDERS: ATTEND Physician Assistant
DX: E78.5 Hyperlipidemia, unspecified (principal); I10 Essential (primary) hypertension
CPT/HCPCS: 36415; 80053; 80061; 83721; 85025

== ENCOUNTER 2023-10-27 09:00 | Outpatient (CLI) | payer MEDICARE ==
[2023-10-27 12:16] LABS: BASOPHILS # (AUTO) 0.1 10^3/uL (0.0-0.1); EOSINOPHILS # (AUTO) 0.3 10^3/uL (0.0-0.7); EOSINOPHILS % (AUTO) 3.7 %; HCT - HEMATOCRIT 43.8 % (42.0-52.0); HGB - HEMOGLOBIN 14.1 g/dL (14.0-18.0); LYMPHOCYTES # (AUTO) 1.3 10^3/uL (1.5-3.5); LYMPHOCYTES % (AUTO) 17.6 %; MEAN CORPUSCULAR HEMOGLOBIN 29.3 pg (27.0-31.0); MEAN CORPUSCULAR HGB CONC 32.2 g/dL (32.0-36.0); MEAN CORPUSCULAR VOLUME 90.9 fL (80.0-94.0); MEAN PLATELET VOLUME 10.8 fL (7.4-11.4); MONOCYTES # (AUTO) 0.6 10^3/uL (0.0-1.0); MONOCYTES % (AUTO) 7.7 %; NEUTROPHILS % (AUTO) 69.6 %; PLT - PLATELET COUNT 180 10^3/uL (130-450); RED BLOOD COUNT 4.82 10^6/uL (4.70-6.10); RED CELL DISTRIBUTION WIDTH 12.9 % (12.0-15.0); WHITE BLOOD COUNT 7.1 x10^3/uL (4.8-10.8)
[2023-10-27 12:31] LABS: ALBUMIN 4.3 g/dL (3.2-5.5); ALBUMIN/GLOBULIN RATIO 1.7 (1.0-2.2); ALKALINE PHOSPHATASE 66 IU/L (42-121); ALT ALANINE AMINOTRANSFERASE 19 IU/L (10-60); AST ASPARTATE AMINOTRANSFERASE 18 IU/L (10-42); BILIRUBIN,TOTAL 0.5 mg/dL (0.2-1.0); BUN - BLOOD UREA NITROGEN 29 mg/dL (6-20); CALCIUM 10.2 mg/dL (8.5-10.3); CARBON DIOXIDE - CO2 29 mmol/L (21-32); CHLORIDE 105 mmol/L (101-111); CHOL/HDL RATIO 3.7 (<5.0); CHOLESTEROL 157 mg/dL; CREATININE 1.7 mg/dL (0.6-1.3); GFR - MDRD 39 (>89); GLUCOSE 103 mg/dL (74-104); HDL CHOLESTEROL 43 mg/dL; LDL CHOLESTEROL,CALCULATED 80 mg/dL; LDL/HDL RATIO 1.9 (<3.6); POTASSIUM 3.9 mmol/L (3.5-4.5); SODIUM 139 mmol/L (135-145); TOTAL PROTEIN 6.8 g/dL (6.4-8.9); TRIGLYCERIDES 169 mg/dL (48-352); VLDL CHOLESTEROL 34 mg/dL
== END 2023-10-27 09:01 | disposition home or self-care (01) ==
LOC: LAB.N 09:00
PROVIDERS: ATTEND Physician Assistant
DX: I10 Essential (primary) hypertension (principal); E78.5 Hyperlipidemia, unspecified; Z12.5 Encounter for screening for malignant neoplasm of prostate
CPT/HCPCS: 36415; 80053; 80061; 85025; G0103; 83721; 84153

== ENCOUNTER 2024-04-20 10:01 | Outpatient (CLI) | payer MEDICARE ==
[2024-04-20 12:05] LABS: BASOPHILS # (AUTO) 0.1 10^3/uL (0.0-0.1); EOSINOPHILS # (AUTO) 0.3 10^3/uL (0.0-0.7); EOSINOPHILS % (AUTO) 3.4 %; HCT - HEMATOCRIT 42.4 % (42.0-52.0); LYMPHOCYTES % (AUTO) 13.8 %; MEAN CORPUSCULAR HEMOGLOBIN 29.9 pg (27.0-31.0); MEAN CORPUSCULAR VOLUME 90.4 fL (80.0-94.0); MEAN PLATELET VOLUME 10.6 fL (7.4-11.4); MONOCYTES # (AUTO) 0.6 10^3/uL (0.0-1.0); MONOCYTES % (AUTO) 8.5 %; NEUTROPHILS # (AUTO) 5.3 10^3/uL (1.5-6.6); NEUTROPHILS % (AUTO) 72.9 %; PLT - PLATELET COUNT 198 10^3/uL (130-450); RED BLOOD COUNT 4.69 10^6/uL (4.70-6.10); RED CELL DISTRIBUTION WIDTH 13.3 % (12.0-15.0); WHITE BLOOD COUNT 7.3 x10^3/uL (4.8-10.8)
[2024-04-20 12:26] LABS: CALCIUM 9.7 mg/dL (8.5-10.3); CREATININE 1.7 mg/dL (0.6-1.3); POTASSIUM 3.9 mmol/L (3.5-4.5)
== END 2024-04-20 10:02 | disposition home or self-care (01) ==
LOC: LAB.N 10:01
PROVIDERS: ATTEND Physician Assistant
DX: I10 Essential (primary) hypertension (principal)
CPT/HCPCS: 36415; 80048; 85025